=== PATIENT | female | born 1935 | race Caucasian/White ===

== ENCOUNTER 2022-09-07 23:03 | Inpatient (IN) | payer MEDICARE, BC ==
[2022-09-07] MEDS ORDERED: SODIUM CHLORIDE 0.9% 1,000 ML IV STA (23:49)
--- NOTE | 2022-09-08 00:38 | XR ---
EXAMINATION TYPE: XR chest 1V portable DATE OF EXAM: 09/08/2022 COMPARISON: NONE HISTORY: Altered mental status TECHNIQUE: Single view FINDINGS: There is moderately severe pulmonary edema. Edema more severe on the right side. Heart is e nlarged. Thoracic aorta is atheromatous. There is blunting of the costophrenic angles. IMPRESSION: Moderately severe pulmonary edema with cardiomegaly and pleural fluid that could relate t o combined congestive heart failure and RDS.
[2022-09-08 01:04] LABS: Albumin 3.1 g/dL (3.5-5.0); Calcium 8.1 mg/dL (8.4-10.2); Potassium 3.2 mmol/L (3.5-5.1); Total Bilirubin 0.5 mg/dL (0.2-1.3); Total Protein 6.3 g/dL (6.3-8.2)
[2022-09-08 01:21] LABS: Anisocytosis Slight; Hypochromasia Marked; MCH 33.4 pg (25.0-35.0); MCHC 32.8 g/dL (31.0-37.0); MCV 101.9 fL (80.0-100.0); Macrocytosis Moderate; Mean Platelet Volume 9.9; Platelet Count 134 k/uL (150-450); Poikilocytosis Moderate; RBC 1.96 m/uL (3.80-5.40); RDW 18.1 % (11.5-15.5)
[2022-09-08 01:33] LABS: HGB 6.5 gm/dL (11.4-16.0)
[2022-09-08 02:13] LABS: Anisocytosis (M) Present; Band Neutrophils % 1 %; Basophils # (M) 0.04 k/uL (0-0.2); Lymphocytes # (M) 0.14 k/uL (1.0-4.8); Monocytes # (M) 0.14 k/uL (0-1.0); Neutrophils % (M) 91 %; Nucleated Red Blood Cells 6 /100 WBC (0-0); Poikilocytosis (M) Present; Polychromasia Present; Total Cells Counted 200; WBC 3.6 k/uL (3.8-10.6)
[2022-09-08 02:18] LABS: ABG Base Excess -2.2 mmol/L; ABG HCO3 21 mmol/L (21-25); ABG PCO2 29 mmHg (35-45); ABG PH 7.48 (7.35-7.45); ABG PO2 185 mmHg (83-108); ABG TCO2 22 mmol/L (19-24); Allen Test Performed? Yes
[2022-09-08 02:23] LABS: Appearance,Urine Cloudy (Clear); Bacteria,Urine Few /hpf; Bilirubin,Urine Negative (Negative); Blood,Urine Small (Negative); Color,Urine Yellow; Glucose,Urine (UA) Negative (Negative); Hyaline Casts,Urine 3 /lpf (0-2); Ketones,Urine Negative (Negative); Leukocyte Esterase,Urine Large (Negative); Mucus,Urine Rare /hpf; Nitrite,Urine Negative (Negative); Protein,Urine Trace (Negative); RBC,Urine 5 /hpf (0-5); Specific Gravity,Urine 1.012 (1.001-1.035); Squamous Epithelial Cell,Urine 1 /hpf (0-4); Urobilinogen,Urine <2.0 mg/dL (<2.0); WBC,Urine 26 /hpf (0-5)
[2022-09-08] MEDS ORDERED: AZITHROMYCIN 500 MG in SODIUM CHLORIDE 0.9% 250 ML IVPB STA (02:26)
[2022-09-08] MEDS ORDERED: PNEUMONIA PROTOCOL UTILIZED 1 EACH MISC PO PRN (02:26)
[2022-09-08 02:36] LABS: INR 1.1 (<1.2); Partial Thromboplastin Time 21.2 sec (22.0-30.0); Prothrombin Time 11.5 sec (9.0-12.0)
[2022-09-08] MEDS ORDERED: FUROSEMIDE 10 MG/ML 4 ML VIAL IV STA (03:04)
[2022-09-08] MEDS ORDERED: NALOXONE 0.4 MG/ML 1 ML VIAL IV PRN (03:08)
--- NOTE | 2022-09-08 03:08 | ED ---
SOB HPI - General Chief Complaint: Shortness of Breath Stated Complaint: Poss pneumonia Time Seen by Provider: 09/07/22 23:50 Source: EMS Mode of arrival: EMS Limitations: altered mental status - History of Present Illness Initial Comments: 87-year-old female with past medical history of metastatic breast cancer presents to the emergency department via EMS. Son is at bedside and provides a history. He reports that the patient has had low oxygen levels at home for the past 3 days. Reports that they were at the lowest today in the 60s. The patient has had altered mental status for this duration as well and reports that she has been staring off to the side. She has had a cough. He is concerned for aspiration pneumonia as he states that she chokes on all the food that she eats. She continues to take food by mouth. Patient does have a history of breast cancer and follows with . Recently started treatment today for the breast cancer. He denies any falls. No reported fevers. No vomiting. Due to the decreased responsiveness the patient has not had any complaints. - Related Data Home Medications Medication Instructions Recorded Confirmed Acetaminophen Tab [Tylenol] 650 mg PO Q4H PRN 09/08/22 09/08/22 Albuterol Sulfate [Proventil Hfa] 2 puff INHALATION RT-Q4H PRN 09/08/22 09/08/22 Anastrozole [Arimidex] 1 mg PO DAILY 09/08/22 09/08/22 Docusate [Colace] 100 mg PO DAILY PRN 09/08/22 09/08/22 Famotidine [Pepcid] 20 mg PO BID PRN 09/08/22 09/08/22 Folic Acid 1 mg PO DAILY 09/08/22 09/08/22 Furosemide [Lasix] 40 mg PO BID 09/08/22 09/08/22 L.acidoph,Paracasei, B.lactis 1 cap PO DAILY 09/08/22 09/08/22 [Probiotic] Latanoprost [Latanoprost 0.005%] 1 drop BOTH EYES HS 09/08/22 09/08/22 Loratadine [Claritin] 10 mg PO DAILY 09/08/22 09/08/22 Metoprolol Tartrate [Lopressor] 25 mg PO BID 09/08/22 09/08/22 Palbociclib [Ibrance] 125 mg PO DIRECTED 09/08/22 09/08/22 Potassium Chloride 20 meq PO DAILY 09/08/22 09/08/22 Sennosides [Senokot] 8.6 mg PO DAILY PRN 09/08/22 09/08/22 amLODIPine [Norvasc] 5 mg PO DAILY 09/08/22 09/08/22 diphenhydrAMINE HCL [Benadryl] 25 mg PO DAILY PRN 09/08/22 09/08/22 Allergies Allergy/AdvReac Type Severity Reaction Status Date / Time codeine Allergy Swelling Verified 09/08/22 08:50 Sulfa (Sulfonamide Allergy Swelling Verified 09/08/22 08:50 Antibiotics) Review of Systems ROS Statement: Those systems with pertinent positive or pertinent negative responses have been documented in the HPI. ROS Other: All systems not noted in ROS Statement are negative. Past Medical History - Past Family History Mother Family Medical History: Cancer General Exam Limitations: altered mental status General appearance: lethargic Head exam: Present: atraumatic, normocephalic, normal inspection ENT exam: Present: mucous membranes dry Neck exam: Present: normal inspection. Absent: tenderness, meningismus, lymphadenopathy Respiratory exam: Present: decreased breath sounds, other (coarse breath sounds bilaterally) Cardiovascular Exam: Present: regular rate, normal rhythm, normal heart sounds. Absent: systolic murmur, diastolic murmur, rubs, gallop, clicks GI/Abdominal exam: Present: soft, normal bowel sounds. Absent: distended, tenderness, guarding, rebound, rigid Neurological exam: Present: other (patient will respond yes/no to questions however appears mostly disconnected from her environment) Psychiatric exam: Present: flat affect Course Vital Signs 09/07/22 09/08/22 09/08/22 23:46 00:53 03:41 Temperature 97.8 F Pulse Rate 80 74 78 Respiratory 19 19 18 Rate Blood Pressure 115/68 119/74 122/72 O2 Sat by Pulse 100 99 100 Oximetry 09/08/22 09/08/22 09/08/22 05:31 05:51 06:26 Temperature 98.1 F 98.2 F Pulse Rate 72 68 80 Respiratory 18 18 15 Rate Blood Pressure 114/76 104/75 106/69 O2 Sat by Pulse 100 100 100 Oximetry 09/08/22 09/08/22 09/08/22 07:39 07:59 08:37 Temperature 97.6 F Pulse Rate 80 87 Respiratory 20 16 18 Rate Blood Pressure 124/77 O2 Sat by Pulse 100 98 Oximetry 09/08/22 09/08/22 09/08/22 10:01 10:12 12:03 Temperature 97.8 F Pulse Rate 72 87 66 Respiratory 18 16 16 Rate Blood Pressure 125/76 127/75 129/65 O2 Sat by Pulse 100 100 Oximetry 09/08/22 09/08/22 09/08/22 13:00 14:19 15:00 Temperature Pulse Rate 68 96 92 Respiratory 18 18 16 Rate Blood Pressure 120/71 139/78 135/78 O2 Sat by Pulse 99 100 Oximetry 09/08/22 16:52 Temperature 97.7 F Pulse Rate 92 Respiratory 18 Rate Blood Pressure 130/93 O2 Sat by Pulse 100 Oximetry Procedures - [facility] Protocol (Time Out) Nurse: Avinash Tim Medical Decision Making - Medical Decision Making On arrival patient was placed into room 16. Thorough history and physical exam is performed. Patient is staring off however will respond to tactile stimuli. 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 No new lateralizing symptoms. Last known well was 3 days ago. Patient is placed on a nonrebreather due to her hypoxia. Due to critical appearing status CODE STATUS is addressed. Son states the patient is a DO NOT RESUSCITATE however does agree to intubation. Patient is saturating 100% on a nonrebreather. Laboratory studies are conducted and demonstrate a hemoglobin of 6.5. Troponin is 0.723. BNP is 45,200. Patient was originally started on 100 mL of fluid per hour as the patient is not been eating or drinking with concern for sepsis. Chest x-ray demonstrates pulmonary edema and therefore fluids are stopped. Patient is transfused a unit of blood and 40 mg of Lasix as ordered. I did order antibiotics. Field catheter is placed. Spoke with the patient's son in regards to how sick the patient is. Patient will be admitted to [facility]. Spoke with Dr. Marcelo who agreed to admit the patinet. - Lab Data Result diagrams: 09/12/22 08:44 09/12/22 08:44 Lab Results 09/08/22 09/08/22 09/08/22 Range/Units 00:34 00:34 00:34 WBC 3.6 L (3.8-10.6) k/uL RBC 1.96 L (3.80-5.40) m/uL Hgb 6.5 L* (11.4-16.0) gm/dL Hct 20.0 L (34.0-46.0) % MCV 101.9 H (80.0-100.0) fL MCH 33.4 (25.0-35.0) pg MCHC 32.8 (31.0-37.0) g/dL RDW 18.1 H (11.5-15.5) % Plt Count 134 L (150-450) k/uL MPV 9.9 Neutrophils % (Manual) 91 % Band Neuts % (Manual) 1 % Lymphocytes % (Manual) 4 % Monocytes % (Manual) 4 % Basophils % (Manual) 1 % Neutrophils # (Manual) 3.30 (1.3-7.7) k/uL Lymphocytes # (Manual) 0.14 L (1.0-4.8) k/uL Monocytes # (Manual) 0.14 (0-1.0) k/uL Basophils # (Manual) 0.04 (0-0.2) k/uL Nucleated RBCs 6 H (0-0) /100 WBC Manual Slide Review Performed Polychromasia Present Hypochromasia Marked Poikilocytosis Moderate Poikilocytosis (manual Present Anisocytosis Slight Anisocytosis (manual) Present Macrocytosis Moderate PT (9.0-12.0) sec INR (<1.2) APTT (22.0-30.0) sec D-Dimer (<0.60) mg/L FEU Sample Site ABG pH (7.35-7.45) ABG pCO2 (35-45) mmHg ABG pO2 (83-108) mmHg ABG HCO3 (21-25) mmol/L ABG Total CO2 (19-24) mmol/L ABG O2 Saturation (94-97) % ABG Base Excess mmol/L [place]by Test FiO2 % Sodium 143 (137-145) mmol/L Potassium 3.2 L (3.5-5.1) mmol/L Chloride 106 (98-107) mmol/L Carbon Dioxide 19 L (22-30) mmol/L Anion Gap 18 mmol/L BUN 79 H (7-17) mg/dL Creatinine 3.12 H (0.52-1.04) mg/dL Est GFR (CKD-EPI)AfAm 15 (>60 ml/min/1.73 sqM) Est GFR (CKD-EPI)NonAf 13 (>60 ml/min/1.73 sqM) Glucose 148 H (74-99) mg/dL Calcium 8.1 L (8.4-10.2) mg/dL Total Bilirubin 0.5 (0.2-1.3) mg/dL AST 41 H (14-36) U/L ALT 25 (4-34) U/L Alkaline Phosphatase 97 (38-126) U/L Troponin I 0.723 H* (0.000-0.034) ng/mL NT-Pro-B Natriuret Pep pg/mL Total Protein 6.3 (6.3-8.2) g/dL Albumin 3.1 L (3.5-5.0) g/dL Urine Color Urine Appearance (Clear) Urine pH (5.0-8.0) Ur Specific [place] (1.001-1.035) Urine Protein (Negative) Urine Glucose (UA) (Negative) Urine Ketones (Negative) Urine Blood (Negative) Urine Nitrite (Negative) Urine Bilirubin (Negative) Urine Urobilinogen (<2.0) mg/dL Ur Leukocyte Esterase (Negative) Urine RBC (0-5) /hpf Urine WBC (0-5) /hpf Urine WBC Clumps (None) /hpf Ur Squamous Epith Cells (0-4) /hpf Urine Bacteria (None) /hpf Hyaline Casts (0-2) /lpf Urine Mucus (None) /hpf Coronavirus (PCR) (Not Detectd) Influenza Type A RNA (Not Detectd) Influenza Type B (PCR) (Not Detectd) Blood Type Blood Type Confirm Blood Type Recheck Bld Type Recheck Status Antibody Screen Crossmatch Spec Expiration Date 09/08/22 09/08/22 09/08/22 Range/Units 00:34 00:34 01:35 WBC (3.8-10.6) k/uL RBC (3.80-5.40) m/uL Hgb (11.4-16.0) gm/dL Hct (34.0-46.0) % MCV (80.0-100.0) fL MCH (25.0-35.0) pg MCHC (31.0-37.0) g/dL RDW (11.5-15.5) % Plt Count (150-450) k/uL MPV Neutrophils % (Manual) % Band Neuts % (Manual) % Lymphocytes % (Manual) % Monocytes % (Manual) % Basophils % (Manual) % Neutrophils # (Manual) (1.3-7.7) k/uL Lymphocytes # (Manual) (1.0-4.8) k/uL Monocytes # (Manual) (0-1.0) k/uL Basophils # (Manual) (0-0.2) k/uL Nucleated RBCs (0-0) /100 WBC Manual Slide Review Polychromasia Hypochromasia Poikilocytosis Poikilocytosis (manual Anisocytosis Anisocytosis (manual) Macrocytosis PT (9.0-12.0) sec INR (<1.2) APTT (22.0-30.0) sec D-Dimer (<0.60) mg/L FEU Sample Site ABG pH (7.35-7.45) ABG pCO2 (35-45) mmHg ABG pO2 (83-108) mmHg ABG HCO3 (21-25) mmol/L ABG Total CO2 (19-24) mmol/L ABG O2 Saturation (94-97) % ABG Base Excess mmol/L [place] Test FiO2 % Sodium (137-145) mmol/L Potassium (3.5-5.1) mmol/L Chloride (98-107) mmol/L Carbon Dioxide (22-30) mmol/L Anion Gap mmol/L BUN (7-17) mg/dL Creatinine (0.52-1.04) mg/dL Est GFR (CKD-EPI)AfAm (>60 ml/min/1.73 sqM) Est GFR (CKD-EPI)NonAf (>60 ml/min/1.73 sqM) Glucose (74-99) mg/dL Calcium (8.4-10.2) mg/dL Total Bilirubin (0.2-1.3) mg/dL AST (14-36) U/L ALT (4-34) U/L Alkaline Phosphatase (38-126) U/L Troponin I (0.000-0.034) ng/mL NT-Pro-B Natriuret Pep 07302 pg/mL Total Protein (6.3-8.2) g/dL Albumin (3.5-5.0) g/dL Urine Color Urine Appearance (Clear) Urine pH (5.0-8.0) Ur Specific [place] (1.001-1.035) Urine Protein (Negative) Urine Glucose (UA) (Negative) Urine Ketones (Negative) Urine Blood (Negative) Urine Nitrite (Negative) Urine Bilirubin (Negative) Urine Urobilinogen (<2.0) mg/dL Ur Leukocyte Esterase (Negative) Urine RBC (0-5) /hpf Urine WBC (0-5) /hpf Urine WBC Clumps (None) /hpf Ur Squamous Epith Cells (0-4) /hpf Urine Bacteria (None) /hpf Hyaline Casts (0-2) /lpf Urine Mucus (None) /hpf Coronavirus (PCR) Not Detected (Not Detectd) Influenza Type A RNA (Not Detectd) Influenza Type B (PCR) (Not Detectd) Blood Type Blood Type Confirm A Positive Blood Type Recheck Bld Type Recheck Status Antibody Screen Crossmatch Spec Expiration Date 09/08/22 09/08/22 09/08/22 Range/Units 01:41 01:52 01:52 WBC (3.8-10.6) k/uL RBC (3.80-5.40) m/uL Hgb (11.4-16.0) gm/dL Hct (34.0-46.0) % MCV (80.0-100.0) fL MCH (25.0-35.0) pg MCHC (31.0-37.0) g/dL RDW (11.5-15.5) % Plt Count (150-450) k/uL MPV Neutrophils % (Manual) % Band Neuts % (Manual) % Lymphocytes % (Manual) % Monocytes % (Manual) % Basophils % (Manual) % Neutrophils # (Manual) (1.3-7.7) k/uL Lymphocytes # (Manual) (1.0-4.8) k/uL Monocytes # (Manual) (0-1.0) k/uL Basophils # (Manual) (0-0.2) k/uL Nucleated RBCs (0-0) /100 WBC Manual Slide Review Polychromasia Hypochromasia Poikilocytosis Poikilocytosis (manual Anisocytosis Anisocytosis (manual) Macrocytosis PT 11.5 (9.0-12.0) sec INR 1.1 (<1.2) APTT 21.2 L (22.0-30.0) sec D-Dimer 18.20 H (<0.60) mg/L FEU Sample Site ABG pH (7.35-7.45) ABG pCO2 (35-45) mmHg ABG pO2 (83-108) mmHg ABG HCO3 (21-25) mmol/L ABG Total CO2 (19-24) mmol/L ABG O2 Saturation (94-97) % ABG Base Excess mmol/L [place]by Test FiO2 % Sodium (137-145) mmol/L Potassium (3.5-5.1) mmol/L Chloride (98-107) mmol/L Carbon Dioxide (22-30) mmol/L Anion Gap mmol/L BUN (7-17) mg/dL Creatinine (0.52-1.04) mg/dL Est GFR (CKD-EPI)AfAm (>60 ml/min/1.73 sqM) Est GFR (CKD-EPI)NonAf (>60 ml/min/1.73 sqM) Glucose (74-99) mg/dL Calcium (8.4-10.2) mg/dL Total Bilirubin (0.2-1.3) mg/dL AST (14-36) U/L ALT (4-34) U/L Alkaline Phosphatase (38-126) U/L Troponin I (0.000-0.034) ng/mL NT-Pro-B Natriuret Pep pg/mL Total Protein (6.3-8.2) g/dL Albumin (3.5-5.0) g/dL Urine Color Urine Appearance (Clear) Urine pH (5.0-8.0) Ur Specific [place] (1.001-1.035) Urine Protein (Negative) Urine Glucose (UA) (Negative) Urine Ketones (Negative) Urine Blood (Negative) Urine Nitrite (Negative) Urine Bilirubin (Negative) Urine Urobilinogen (<2.0) mg/dL Ur Leukocyte Esterase (Negative) Urine RBC (0-5) /hpf Urine WBC (0-5) /hpf Urine WBC Clumps (None) /hpf Ur Squamous Epith Cells (0-4) /hpf Urine Bacteria (None) /hpf Hyaline Casts (0-2) /lpf Urine Mucus (None) /hpf Coronavirus (PCR) (Not Detectd) Influenza Type A RNA Not Detected (Not Detectd) Influenza Type B (PCR) Not Detected (Not Detectd) Blood Type A Positive Blood Type Confirm Blood Type Recheck No Previous Record Bld Type Recheck Status CABO Indicated Antibody Screen NEGATIVE Crossmatch See Detail Spec Expiration Date 09/11/2022 - 235109/08/22 09/08/22 Range/Units 02:09 02:16 WBC (3.8-10.6) k/uL RBC (3.80-5.40) m/uL Hgb (11.4-16.0) gm/dL Hct (34.0-46.0) % MCV (80.0-100.0) fL MCH (25.0-35.0) pg MCHC (31.0-37.0) g/dL RDW (11.5-15.5) % Plt Count (150-450) k/uL MPV Neutrophils % (Manual) % Band Neuts % (Manual) % Lymphocytes % (Manual) % Monocytes % (Manual) % Basophils % (Manual) % Neutrophils # (Manual) (1.3-7.7) k/uL Lymphocytes # (Manual) (1.0-4.8) k/uL Monocytes # (Manual) (0-1.0) k/uL Basophils # (Manual) (0-0.2) k/uL Nucleated RBCs (0-0) /100 WBC Manual Slide Review Polychromasia Hypochromasia Poikilocytosis Poikilocytosis (manual Anisocytosis Anisocytosis (manual) Macrocytosis PT (9.0-12.0) sec INR (<1.2) APTT (22.0-30.0) sec D-Dimer (<0.60) mg/L FEU Sample Site R radial ABG pH 7.48 H (7.35-7.45) ABG pCO2 29 L (35-45) mmHg ABG pO2 185 H (83-108) mmHg ABG HCO3 21 (21-25) mmol/L ABG Total CO2 22 (19-24) mmol/L ABG O2 Saturation 100.0 H (94-97) % ABG Base Excess -2.2 mmol/L [place]by Test Yes FiO2 100 % Sodium (137-145) mmol/L Potassium (3.5-5.1) mmol/L Chloride (98-107) mmol/L Carbon Dioxide (22-30) mmol/L Anion Gap mmol/L BUN (7-17) mg/dL Creatinine (0.52-1.04) mg/dL Est GFR (CKD-EPI)AfAm (>60 ml/min/1.73 sqM) Est GFR (CKD-EPI)NonAf (>60 ml/min/1.73 sqM) Glucose (74-99) mg/dL Calcium (8.4-10.2) mg/dL Total Bilirubin (0.2-1.3) mg/dL AST (14-36) U/L ALT (4-34) U/L Alkaline Phosphatase (38-126) U/L Troponin I (0.000-0.034) ng/mL NT-Pro-B Natriuret Pep pg/mL Total Protein (6.3-8.2) g/dL Albumin (3.5-5.0) g/dL Urine Color Yellow Urine Appearance Cloudy H (Clear) Urine pH 5.0 (5.0-8.0) Ur Specific [place] 1.012 (1.001-1.035) Urine Protein Trace H (Negative) Urine Glucose (UA) Negative (Negative) Urine Ketones Negative (Negative) Urine Blood Small H (Negative) Urine Nitrite Negative (Negative) Urine Bilirubin Negative (Negative) Urine Urobilinogen <2.0 (<2.0) mg/dL Ur Leukocyte Esterase Large H (Negative) Urine RBC 5 (0-5) /hpf Urine WBC 26 H (0-5) /hpf Urine WBC Clumps Few H (None) /hpf Ur Squamous Epith Cells 1 (0-4) /hpf Urine Bacteria Few H (None) /hpf Hyaline Casts 3 H (0-2) /lpf Urine Mucus Rare H (None) /hpf Coronavirus (PCR) (Not Detectd) Influenza Type A RNA (Not Detectd) Influenza Type B (PCR) (Not Detectd) Blood Type Blood Type Confirm Blood Type Recheck Bld Type Recheck Status Antibody Screen Crossmatch Spec Expiration Date - EKG Data EKG Comments: EKG demonstrates sinus rhythm with a rate of 67. QRS 170. QTC of 528. Significant baseline artifact. There is a left bundle however sgarbossa not able to assess Disposition Clinical Impression: Pulmonary edema, IRWIN (acute kidney injury), CKD (chronic kidney disease), Hypoxia, Anemia, Pancytopenia, Hypokalemia, NSTEMI (non-ST elevated myocardial infarction) Disposition: ADMITTED IP TO THIS HOSP Condition: Critical Is patient prescribed a controlled substance at d/c from ED?: No Time of Disposition: 03:07 Decision to Admit Reason: Admit from EC Decision Date: 09/08/22 Decision Time: 03:07
[2022-09-08] MEDS ORDERED: POTASSIUM CHLORIDE 20 MEQ in WATER FOR INJECTION 1 100ML.BAG IVPB STA ×2 (03:22→18:16)
--- NOTE | 2022-09-08 04:39 | P.HPIM ---
History of Present Illness H&P Date: 09/08/22 The patient is an 87-year-old female with a PMH of stage IV breast cancer, CVA with residual left-sided weakness, dementia, hypertension, and hyperlipidemia who was brought into the emergency room by her son due to shortness of breath and worsening mental status. The history was obtained from the son at the bedside due to patient's altered mentation. Son reports that over the past 2 da ys, the patient's been increasingly unresponsive and appeared to have difficulty breathing. She is currently undergoing chemotherapy and was scheduled to start a new regimen earlier today. The patient is reportedly bedbound and has had a gradual decline in her functional capacity over the past several years after suffering from a large CVA in 2012. Upon arrival of EMS staff, the patient's SpO2 was noted to be 75% on room air. In the emergency room, chest x-ray revealed severe pulmonary edema with cardiomegaly and pleural fluid with RDS right greater than left. EKG reveals sinus rhythm with at 67 bpm with left axis deviation and left bundle branch block. Laboratory evaluation was remarkable for pancytopenia with hemoglobin 6.5 (previously 7.1 on 08/21), troponin 0.7-3, proBNP 45,200, potassium 3.2, BUN 79, creatinine 3.12 (previously 1.9 on 08/21), with UA consistent with UTI. Review of systems: Unable to obtain due to mental status Physical examination: General: Chronically ill-appearing female, no distress, appears at stated age, normal weight Derm: no unusual rashes/lesions, warm Head: atraumatic, normocephalic, symmetric Eyes: EOMI, no lid lag, anicteric sclera, pupils equal round reactive to light ENT: Nose and ears atraumatic Neck: No cervical lymphadenopathy, trachea midline, supple Mouth: no lip lesion, mucus membranes dry Cardiovascular: S1S2 reg, no murmur, positive dorsalis pedis pulse bilateral, no edema Lungs: Diffuse rhonchi and rales, no accessory muscle use Abdominal: soft, nontender to palpation, no guarding Ext: Unable to assess strength as patient not following directions, no gross muscle atrophy, no contractures, Neuro: Patient spontaneously moving right upper extremity and lower extremity Psych: Makes eye contact upon tactile stimuli, not following any directions or answering any questions Assessment/plan Acute hypoxic respiratory failure, suspected secondary to newly diagnosed CHF exacerbation -Cardiac monitoring -Continue with Lasix -Cardiology consult -Cardiac monitoring -Monitor electrolytes -Intake/output and daily weights Acute kidney injury, suspect secondary to cardiorenal syndrome -Continue diuresis -Nephrology consulted Troponin elevation, suspect secondary to ongoing acute illness with CHF exacerbation -Cardiology consulted -Continue with aspirin -Cardiac monitoring Hypokalemia -Replace and monitor UTI -Continue with ceftriaxone -Follow-up cultures Pancytopenia, slightly worse than baseline -1 U pRBCs ordered due to severe anemia DVT prophylaxis -IPCDs The patient is admitted with an anticipated greater than 2 midnight stay for evaluation of hypoxic resp failure. CODE STATUS: No Code w/ instructions (elective intubations okay) Discussed with: Son Anticipated discharge date: 4-[address]: Home Past Medical History - Past Family History Mother Family Medical History: Cancer Medications and Allergies Allergies Allergy/AdvReac Type Severity Reaction Status Date / Time codeine Allergy Swelling Verified 09/07/22 23:45 Sulfa (Sulfonamide Allergy Swelling Verified 09/07/22 23:45 Antibiotics) Physical Exam Vitals: Vital Signs Temp Pulse Resp BP Pulse Ox 09/08/22 03:41 78 18 122/72 100 09/08/22 00:53 74 19 119/74 99 09/07/22 23:46 97.8 F 80 19 115/68 100 Intake and Output 09/07/22 09/07/22 09/08/22 14:59 22:59 06:59 Other: Weight 61.235 kg Results CBC & Chem 7: 09/08/22 00:34 09/08/22 00:34 Labs: Abnormal Lab Results - Last 24 Hours (Table) 09/08/22 09/08/22 09/08/22 Range/Units 00:34 00:34 00:34 WBC 3.6 L (3.8-10.6) k/uL RBC 1.96 L (3.80-5.40) m/uL Hgb 6.5 L* (11.4-16.0) gm/dL Hct 20.0 L (34.0-46.0) % MCV 101.9 H (80.0-100.0) fL RDW 18.1 H (11.5-15.5) % Plt Count 134 L (150-450) k/uL Lymphocytes # (Manual) 0.14 L (1.0-4.8) k/uL Nucleated RBCs 6 H (0-0) /100 WBC APTT (22.0-30.0) sec D-Dimer (<0.60) mg/L FEU ABG pH (7.35-7.45) ABG pCO2 (35-45) mmHg ABG pO2 (83-108) mmHg ABG O2 Saturation (94-97) % Potassium 3.2 L (3.5-5.1) mmol/L Carbon Dioxide 19 L (22-30) mmol/L BUN 79 H (7-17) mg/dL Creatinine 3.12 H (0.52-1.04) mg/dL Glucose 148 H (74-99) mg/dL Calcium 8.1 L (8.4-10.2) mg/dL AST 41 H (14-36) U/L Troponin I 0.723 H* (0.000-0.034) ng/mL Albumin 3.1 L (3.5-5.0) g/dL Urine Appearance (Clear) Urine Protein (Negative) Urine Blood (Negative) Ur Leukocyte Esterase (Negative) Urine WBC (0-5) /hpf Urine WBC Clumps (None) /hpf Urine Bacteria (None) /hpf Hyaline Casts (0-2) /lpf Urine Mucus (None) /hpf Crossmatch 09/08/22 09/08/22 09/08/22 Range/Units 01:52 01:52 02:09 WBC (3.8-10.6) k/uL RBC (3.80-5.40) m/uL Hgb (11.4-16.0) gm/dL Hct (34.0-46.0) % MCV (80.0-100.0) fL RDW (11.5-15.5) % Plt Count (150-450) k/uL Lymphocytes # (Manual) (1.0-4.8) k/uL Nucleated RBCs (0-0) /100 WBC APTT 21.2 L (22.0-30.0) sec D-Dimer 18.20 H (<0.60) mg/L FEU ABG pH (7.35-7.45) ABG pCO2 (35-45) mmHg ABG pO2 (83-108) mmHg ABG O2 Saturation (94-97) % Potassium (3.5-5.1) mmol/L Carbon Dioxide (22-30) mmol/L BUN (7-17) mg/dL Creatinine (0.52-1.04) mg/dL Glucose (74-99) mg/dL Calcium (8.4-10.2) mg/dL AST (14-36) U/L Troponin I (0.000-0.034) ng/mL Albumin (3.5-5.0) g/dL Urine Appearance Cloudy H (Clear) Urine Protein Trace H (Negative) Urine Blood Small H (Negative) Ur Leukocyte Esterase Large H (Negative) Urine WBC 26 H (0-5) /hpf Urine WBC Clumps Few H (None) /hpf Urine Bacteria Few H (None) /hpf Hyaline Casts 3 H (0-2) /lpf Urine Mucus Rare H (None) /hpf Crossmatch See Detail 09/08/22 Range/Units 02:16 WBC (3.8-10.6) k/uL RBC (3.80-5.40) m/uL Hgb (11.4-16.0) gm/dL Hct (34.0-46.0) % MCV (80.0-100.0) fL RDW (11.5-15.5) % Plt Count (150-450) k/uL Lymphocytes # (Manual) (1.0-4.8) k/uL Nucleated RBCs (0-0) /100 WBC APTT (22.0-30.0) sec D-Dimer (<0.60) mg/L FEU ABG pH 7.48 H (7.35-7.45) ABG pCO2 29 L (35-45) mmHg ABG pO2 185 H (83-108) mmHg ABG O2 Saturation 100.0 H (94-97) % Potassium (3.5-5.1) mmol/L Carbon Dioxide (22-30) mmol/L BUN (7-17) mg/dL Creatinine (0.52-1.04) mg/dL Glucose (74-99) mg/dL Calcium (8.4-10.2) mg/dL AST (14-36) U/L Troponin I (0.000-0.034) ng/mL Albumin (3.5-5.0) g/dL Urine Appearance (Clear) Urine Protein (Negative) Urine Blood (Negative) Ur Leukocyte Esterase (Negative) Urine WBC (0-5) /hpf Urine WBC Clumps (None) /hpf Urine Bacteria (None) /hpf Hyaline Casts (0-2) /lpf Urine Mucus (None) /hpf Crossmatch
[2022-09-08] MEDS: FUROSEMIDE 10 MG/ML 4 ML VIAL IV SCH ×2 (08:06→21:40)
--- NOTE | 2022-09-08 10:32 | P.CRDCN ---
History of Present Illness History of present illness: HISTORY OF PRESENTING ILLNESS This is a pleasant 87-year-old female past medical history significant for metastatic breast cancer, CVA, hypertension, dementia, dyslipidemia, no known history of cardiac disease. 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 We have been asked to see in consultation for congestive heart failure. Patient presents to the emergency department by her son due to worsening shortness of breath and altered mental status. Patient is seen in the ER, unable to respond to questions. She is on a non-rebreather. She appears short of breath. Unable to accurartely describe her symptoms. Her son is at bedside, states patient has had low oxygen levels for the past 3 days. Worsening altered mental status. Patient was started on IV Lasix and IV antibiotics in the ER. DIAGNOSTICS * EKG reveals artifact. Repeat EKG appeared to be sinus rhythm LBBB morphology * Telemetry tracings indicate sinus rhythm * Chest xray moderate severe pulmonary edema with cardiomegaly. * Laboratory reviewed, hemoglobin 6.5, WBCs 3.6, platelets 134, d-dimer 18.2, sodium 143, potassium 3.2, BUN 79, serum creatinine 0.12, proBNP 45,200, troponin 0.72, 0.82, influenza and covid-19 negative * Current home cardiac medications include potassium chloride, metoprolol titrate 25 mg twice a day, amlodipine 5 mg daily REVIEW OF SYSTEMS At the time of my exam: Unable to perform secondary to mental status PHYSICAL EXAMINATION Blood pressure 127/75, heart rate 87, afebrile, oxygen saturation 100% on 15 nonbreather CONSTITUTIONAL: No apparent distress. HEENT: Head is normocephalic. Pupils are equal, round. Sclerae anicteric. Mucous membranes of the mouth are moist. No JVD. No carotid bruit. CHEST EXAMINATION: Lungs are crackles to auscultation. Diaphragmatic breahthing present HEART EXAMINATION: Regular rate and rhythm. S1, S2 heard. No murmurs, gallops or rub. ABDOMEN: Soft, nontender. Positive bowel sounds. EXTREMITIES: 2+ peripheral pulses, no lower extremity edema and no calf tenderness. NEUROLOGIC EXAMINATION: Patient is awake, lethargic, unable to answer questions, not oriented ASSESSMENT Altered mental status Acute hypoxic respiratory failure Acute heart failure exacerbation, unknown EF, echo pending Pancytopenia Elevated d-dimer Hypokalemia Acute kidney injury Acute Anemia, hemoglobin 6.5. Elevated troponin, secondary to above Metastatic breast cancer History of CVA Hypertension Dementia Dyslipidemia PLAN Continue IV Lasix Nephrology and Pulmonary consulted Optimize respiratory status as able Obtain 2D echocardiogram and doppler study to assess cardiac structure and function. Patient is a DNR Prognosis is guarded Further recommendations based on clinical course Nurse practitioner note has been reviewed by physician. Signing provider agrees with the documented findings, assessment, and plan of care. Past Medical History - Past Family History Mother Family Medical History: Cancer Medications and Allergies Home Medications Medication Instructions Recorded Confirmed Type Acetaminophen Tab [Tylenol] 650 mg PO Q4H PRN 09/08/22 09/08/22 History Albuterol Sulfate [Proventil Hfa] 2 puff INHALATION RT-Q4H PRN 09/08/22 09/08/22 History Anastrozole [Arimidex] 1 mg PO DAILY 09/08/22 09/08/22 History Docusate [Colace] 100 mg PO DAILY PRN 09/08/22 09/08/22 History Famotidine [Pepcid] 20 mg PO BID PRN 09/08/22 09/08/22 History Folic Acid 1 mg PO DAILY 09/08/22 09/08/22 History Furosemide [Lasix] 40 mg PO BID 09/08/22 09/08/22 History L.acidoph,Paracasei, B.lactis 1 cap PO DAILY 09/08/22 09/08/22 History [Probiotic] Latanoprost [Latanoprost 0.005%] 1 drop BOTH EYES HS 09/08/22 09/08/22 History Loratadine [Claritin] 10 mg PO DAILY 09/08/22 09/08/22 History Metoprolol Tartrate [Lopressor] 25 mg PO BID 09/08/22 09/08/22 History Palbociclib [Ibrance] 125 mg PO DIRECTED 09/08/22 09/08/22 History Potassium Chloride 20 meq PO DAILY 09/08/22 09/08/22 History Sennosides [Senokot] 8.6 mg PO DAILY PRN 09/08/22 09/08/22 History amLODIPine [Norvasc] 5 mg PO DAILY 09/08/22 09/08/22 History diphenhydrAMINE HCL [Benadryl] 25 mg PO DAILY PRN 09/08/22 09/08/22 History Allergies Allergy/AdvReac Type Severity Reaction Status Date / Time codeine Allergy Swelling Verified 09/08/22 08:50 Sulfa (Sulfonamide Allergy Swelling Verified 09/08/22 08:50 Antibiotics) Physical Exam Vitals: Vital Signs Temp Pulse Resp BP Pulse Ox 09/08/22 06:26 80 15 106/69 100 09/08/22 05:51 98.2 F 68 18 104/75 100 09/08/22 05:31 98.1 F 72 18 114/76 100 09/08/22 03:41 78 18 122/72 100 09/08/22 00:53 74 19 119/74 99 09/07/22 23:46 97.8 F 80 19 115/68 100 Intake and Output 09/07/22 09/08/22 09/08/22 22:59 06:59 14:59 Intake Total 0 310 Balance 0 310 Intake: Blood Product 0 310 Rc As-1 Unit 0 310 [id number] Other: Weight 61.235 kg Results 09/08/22 00:34 09/08/22 00:34 Cardiac Enzymes 09/08/22 09/08/22 09/08/22 Range/Units 00:34 00:34 05:54 AST 41 H (14-36) U/L Troponin I 0.723 H* 0.825 H* (0.000-0.034) ng/mL Coagulation 09/08/22 Range/Units 01:52 PT 11.5 (9.0-12.0) sec APTT 21.2 L (22.0-30.0) sec CBC 09/08/22 Range/Units 00:34 WBC 3.6 L (3.8-10.6) k/uL RBC 1.96 L (3.80-5.40) m/uL Hgb 6.5 L* (11.4-16.0) gm/dL Hct 20.0 L (34.0-46.0) % Plt Count 134 L (150-450) k/uL Comprehensive Metabolic Panel 09/08/22 Range/Units 00:34 Sodium 143 (137-145) mmol/L Potassium 3.2 L (3.5-5.1) mmol/L Chloride 106 (98-107) mmol/L Carbon Dioxide 19 L (22-30) mmol/L BUN 79 H (7-17) mg/dL Creatinine 3.12 H (0.52-1.04) mg/dL Glucose 148 H (74-99) mg/dL Calcium 8.1 L (8.4-10.2) mg/dL AST 41 H (14-36) U/L ALT 25 (4-34) U/L Alkaline Phosphatase 97 (38-126) U/L Total Protein 6.3 (6.3-8.2) g/dL Albumin 3.1 L (3.5-5.0) g/dL Current Medications Generic Name Dose Route Start Last Admin Trade Name Freq PRN Reason Stop Dose Admin Furosemide 40 mg 09/08/22 09:00 Furosemide 10 Mg/Ml 4 Ml Vial IV Q12HR [facility] Ceftriaxone Sodium 2 gm/ 50 mls @ 100 mls/hr 09/08/22 09:00 Sodium Chloride IVPB 09/12/22 09:29 Q24HR [facility] Protocol Miscellaneous Information 1 each 09/08/22 02:26 Pneumonia Protocol Utilized 1 Each Misc PO ONCE PRN Per Protocol Naloxone HCl 0.2 mg 09/08/22 03:08 Naloxone 0.4 Mg/Ml 1 Ml Vial IV Q2M PRN Opioid Reversal Intake and Output 09/07/22 09/08/22 09/08/22 22:59 06:59 14:59 Intake Total 0 310 Balance 0 310 Intake: Blood Product 0 310 Rc As-1 Unit 0 310 [id number] Other: Weight 61.235 kg 09/08/22 00:34 09/08/22 00:34
[2022-09-08 10:51] LABS: Calcium 7.4 mg/dL (8.4-10.2); Potassium 3.3 mmol/L (3.5-5.1)
--- NOTE | 2022-09-08 10:57 | P.NPCON ---
History of Present Illness - Reason for Consult acute renal failure, chronic renal failure - History of Present Illness Reason for consultation: Acute kidney injury on chronic kidney disease History of present illness: Patient is a 87-year-old female seen in renal consultation for acute kidney injury on chronic kidney disease. Patient was seen and examined in the emergency room. Patient has chronic kidney disease stage IV baseline creatinine in the range of 1.7-2 secondary to nephrosclerosis. Creatinine on admission was 3.12. Patient is not a reliable historian and is currently on nonrebreather. Son is present at bedside. Blood pressure is stable. No fever. According to the son patient has been short of breath and also has noticed changed in mental status. Patient has been progressively weaker and has not been eating and drinking much for the last 1-2 weeks. He also states that he give her ibuprofen for 5 days ago. She also vomited last week but not in the last couple of days. Patient does have history of breast cancer and was started back on Ibrance yesterday. Hemoglobin was 6.5 at admission and she did receive a unit of blood last night. No active bleeding per son. States patient used to be a diabetic but has not now. Denies any history of coronary artery disease. Chest x-ray suggestive of fluid overload and is currently maintained on IV Lasix. Vital signs are stable. General: Resting in bed. HEENT: On nonrebreather. LUNGS: Breath sounds decreased. HEART: Rate and Rhythm are regular. ABDOMEN: Soft, no distention. EXTREMITITES: No edema. Past Medical History - Past Family History Mother Family Medical History: Cancer Medications and Allergies Home Medications Medication Instructions Recorded Confirmed Type Acetaminophen Tab [Tylenol] 650 mg PO Q4H PRN 09/08/22 09/08/22 History Albuterol Sulfate [Proventil Hfa] 2 puff INHALATION RT-Q4H PRN 09/08/22 09/08/22 History Anastrozole [Arimidex] 1 mg PO DAILY 09/08/22 09/08/22 History Docusate [Colace] 100 mg PO DAILY PRN 09/08/22 09/08/22 History Famotidine [Pepcid] 20 mg PO BID PRN 09/08/22 09/08/22 History Folic Acid 1 mg PO DAILY 09/08/22 09/08/22 History Furosemide [Lasix] 40 mg PO BID 09/08/22 09/08/22 History L.acidoph,Paracasei, B.lactis 1 cap PO DAILY 09/08/22 09/08/22 History [Probiotic] Latanoprost [Latanoprost 0.005%] 1 drop BOTH EYES HS 09/08/22 09/08/22 History Loratadine [Claritin] 10 mg PO DAILY 09/08/22 09/08/22 History Metoprolol Tartrate [Lopressor] 25 mg PO BID 09/08/22 09/08/22 History Palbociclib [Ibrance] 125 mg PO DIRECTED 09/08/22 09/08/22 History Potassium Chloride 20 meq PO DAILY 09/08/22 09/08/22 History Sennosides [Senokot] 8.6 mg PO DAILY PRN 09/08/22 09/08/22 History amLODIPine [Norvasc] 5 mg PO DAILY 09/08/22 09/08/22 History diphenhydrAMINE HCL [Benadryl] 25 mg PO DAILY PRN 09/08/22 09/08/22 History Allergies Allergy/AdvReac Type Severity Reaction Status Date / Time codeine Allergy Swelling Verified 09/08/22 08:50 Sulfa (Sulfonamide Allergy Swelling Verified 09/08/22 08:50 Antibiotics) Physical Exam Vitals: Vital Signs Temp Pulse Resp BP Pulse Ox 09/08/22 10:12 87 16 127/75 100 09/08/22 10:01 97.8 F 72 18 125/76 09/08/22 08:37 87 18 98 09/08/22 07:59 16 09/08/22 07:39 97.6 F 80 20 124/77 100 09/08/22 06:26 80 15 106/69 100 09/08/22 05:51 98.2 F 68 18 104/75 100 09/08/22 05:31 98.1 F 72 18 114/76 100 09/08/22 03:41 78 18 122/72 100 09/08/22 00:53 74 19 119/74 99 09/07/22 23:46 97.8 F 80 19 115/68 100 Intake and Output 09/07/22 09/08/22 09/08/22 22:59 06:59 14:59 Intake Total 0 310 Balance 0 310 Intake: Blood Product 0 310 Rc As-1 Unit 0 310 [id number] Other: Weight 61.235 kg Results - Lab Results Most recent lab results ABG pH 7.48 (7.35-7.45) H 09/08/22 02:16 ABG pCO2 29 mmHg (35-45) L 09/08/22 02:16 ABG pO2 185 mmHg (83-108) H 09/08/22 02:16 ABG HCO3 21 mmol/L (21-25) 09/08/22 02:16 ABG O2 Saturation 100.0 % (94-97) H 09/08/22 02:16 Calcium 8.1 mg/dL (8.4-10.2) L 09/08/22 00:34 09/08/22 00:34 09/08/22 00:34 Assessment and Plan Plan: Assessment: 1. Acute kidney injury secondary to ATN secondary to cardiorenal syndrome and anemia. Creatinine 3.1 2. admission. 2. Chronic kidney disease stage IV with baseline creatinine in the range of 1.72 secondary to nephrosclerosis. 3. Acute blood loss anemia status post blood transfusion. No active bleeding. Patient is noted to be pancytopenic possibly from underlying malignancy/chemo. 4. Metastatic breast cancer. Oncology consulted. 5. Acute hypoxic respiratory failure. 6. Volume overload. 7. Hypokalemia from diuresis and poor intake. 8. Respiratory alkalosis. Plan: Maintain IV Lasix. Follow-up echocardiogram. Check iron studies. Follow-up cultures. Check urinalysis. Check renal ultrasound. Check bladder scan to make sure no urinary retention. Avoid nephrotoxins. Thank you for the consultation. I will continue to follow the patient with you during her hospital stay.
--- NOTE | 2022-09-08 12:08 | P.CNPUL ---
History of Present Illness Consult date: 09/08/22 Requesting physician: Yannick Marcelo Reason for consult: dyspnea, hypoxemia, pneumonia, abnormal CXR/CT Chief complaint: Hypoxemic respiratory failure. History of present illness: Pulmonary consult dated 09/08/2022. 87-year-old female seen in the emergency room. She was apparently brought in by EMS, on September 07, at 2300 hrs. We saw her in room 16. Her son was at the bedside. The patient has a history of metastatic breast cancer. All the history is obtained from the son, and from the emergency room documentation. The patient apparently has not been doing well at home for the last 3 days, with low saturations. Apparently the saturations were in the 60s. In addition, she developed mental status changes, and was very lethargic and somnolent. She was not coughing. The patient was choking while taking her medications, and eating a very small amount that she eats. The patient is currently taking Ibrance for her breast cancer. She is seen typically by a visiting physician. She has a history of metastatic breast cancer, as mentioned above. She's currently on a nonrebreather mask, and saline at 130 mL an hour. A blood gas showed a pO2 of 185, pCO2 29, and a pH is 7.48. The patient was on Rocephin, and we changed it to Zosyn. Her urine looks like it may be positive for a urinary tract infection. Her troponin was elevated. All this was told the son. White count 3.6, hemoglobin 6.5, hematocrit 20, and platelet count 234,000. D-dimer was 18.0. Sodium 145, potassium 3.3, chlorides 112, CO2 22, with an anion gap of 11, BUN 71, and creatinine 3.10. Glucose 130. Troponin is 0.723, 0.825, and 0.725. N-terminal proBNP was 45,200. Urine is positive for leukocyte esterase, WBCs, bacteria, and WBC clumps. Chest x-rays consistent with heart failure, although there may be a component of pneumonia as well. Review of Systems REVIEW OF SYSTEMS: The patient cannot provide any review of systems. All the history is obtained from the son who is at the bedside. She apparently has been having worsening respiratory distress, and mental status changes, with saturations in the 60s. CONSTITUTIONAL: [Negative.] NEUROLOGIC: [ Negative.] HEENT: [ Negative.] CARDIAC: [Negative.] PULMONARY: [Negative.] GI: [Negative.] : [Negative.] RHEUMATOLOGIC: [ Negative.] IMMUNOLOGIC: [ Negative.] ENDOCRINE: [Negative. ] DERMATOLOGIC: [Negative.] Past Medical History - Past Family History Mother Family Medical History: Cancer Medications and Allergies Home Medications Medication Instructions Recorded Confirmed Type Acetaminophen Tab [Tylenol] 650 mg PO Q4H PRN 09/08/22 09/08/22 History Albuterol Sulfate [Proventil Hfa] 2 puff INHALATION RT-Q4H PRN 09/08/22 09/08/22 History Anastrozole [Arimidex] 1 mg PO DAILY 09/08/22 09/08/22 History Docusate [Colace] 100 mg PO DAILY PRN 09/08/22 09/08/22 History Famotidine [Pepcid] 20 mg PO BID PRN 09/08/22 09/08/22 History Folic Acid 1 mg PO DAILY 09/08/22 09/08/22 History Furosemide [Lasix] 40 mg PO BID 09/08/22 09/08/22 History L.acidoph,Paracasei, B.lactis 1 cap PO DAILY 09/08/22 09/08/22 History [Probiotic] Latanoprost [Latanoprost 0.005%] 1 drop BOTH EYES HS 09/08/22 09/08/22 History Loratadine [Claritin] 10 mg PO DAILY 09/08/22 09/08/22 History Metoprolol Tartrate [Lopressor] 25 mg PO BID 09/08/22 09/08/22 History Palbociclib [Ibrance] 125 mg PO DIRECTED 09/08/22 09/08/22 History Potassium Chloride 20 meq PO DAILY 09/08/22 09/08/22 History Sennosides [Senokot] 8.6 mg PO DAILY PRN 09/08/22 09/08/22 History amLODIPine [Norvasc] 5 mg PO DAILY 09/08/22 09/08/22 History diphenhydrAMINE HCL [Benadryl] 25 mg PO DAILY PRN 09/08/22 09/08/22 History Allergies Allergy/AdvReac Type Severity Reaction Status Date / Time codeine Allergy Swelling Verified 09/08/22 08:50 Sulfa (Sulfonamide Allergy Swelling Verified 09/08/22 08:50 Antibiotics) Physical Exam Osteopathic Statement: *. No significant issues noted on an osteopathic structural exam other than those noted in the History and Physical/Consult. Vitals: Vital Signs Temp Pulse Resp BP Pulse Ox 09/08/22 10:12 87 16 127/75 100 09/08/22 10:01 97.8 F 72 18 125/76 09/08/22 08:37 87 18 98 09/08/22 07:59 16 09/08/22 07:39 97.6 F 80 20 124/77 100 09/08/22 06:26 80 15 106/69 100 09/08/22 05:51 98.2 F 68 18 104/75 100 09/08/22 05:31 98.1 F 72 18 114/76 100 09/08/22 03:41 78 18 122/72 100 09/08/22 00:53 74 19 119/74 99 09/07/22 23:46 97.8 F 80 19 115/68 100 Intake and Output 09/07/22 09/08/22 09/08/22 22:59 06:59 14:59 Intake Total 0 310 Balance 0 310 Intake: Blood Product 0 310 Rc As-1 Unit 0 310 [id number] Other: Weight 61.235 kg Tachypnea, somnolent/lethargic. The patient is on a nonrebreather mask. HEENT examination is grossly unremarkable. Neck supple. Full range of motion. No adenopathy thyromegaly or neck vein distention. Cardiovascular examination reveals regular rhythm rate. S1-S2 normal. No S3 or S4. No discernible murmur noted. Heart rate 100 bpm. Lungs reveal bilateral coarse rhonchi. Bilateral crackles are appreciated. No wheezes. Breath sounds equal bilaterally. She does not take a deep breath. Saturations are 98% on nonrebreather mask. Abdomen soft, without bowel sounds. Extremities are intact. No cyanosis clubbing or significant edema.. Skin reveals multiple areas of ecchymoses. Neurologic examination cannot be adequately assessed as the patient's very lethargic and somnolent. Results - Laboratory Findings CBC and BMP: 09/08/22 00:34 09/08/22 09:58 ABG ABG pH 7.48 (7.35-7.45) H 09/08/22 02:16 ABG pCO2 29 mmHg (35-45) L 09/08/22 02:16 ABG pO2 185 mmHg (83-108) H 09/08/22 02:16 ABG O2 Saturation 100.0 % (94-97) H 09/08/22 02:16 PT/INR, D-dimer PT 11.5 sec (9.0-12.0) 09/08/22 01:52 INR 1.1 (<1.2) 09/08/22 01:52 D-Dimer 18.20 mg/L FEU (<0.60) H 09/08/22 01:52 Abnormal lab findings: Abnormal Labs 09/08/22 09/08/22 09/08/22 00:34 00:34 00:34 WBC 3.6 L RBC 1.96 L Hgb 6.5 L* Hct 20.0 L MCV 101.9 H RDW 18.1 H Plt Count 134 L Lymphocytes # (Manual) 0.14 L Nucleated RBCs 6 H APTT D-Dimer ABG pH ABG pCO2 ABG pO2 ABG O2 Saturation Potassium 3.2 L Chloride Carbon Dioxide 19 L BUN 79 H Creatinine 3.12 H Glucose 148 H Calcium 8.1 L AST 41 H Troponin I 0.723 H* Albumin 3.1 L Procalcitonin Urine Appearance Urine Protein Urine Blood Ur Leukocyte Esterase Urine WBC Urine WBC Clumps Urine Bacteria Hyaline Casts Urine Mucus Crossmatch 09/08/22 09/08/22 09/08/22 01:52 01:52 02:09 WBC RBC Hgb Hct MCV RDW Plt Count Lymphocytes # (Manual) Nucleated RBCs APTT 21.2 L D-Dimer 18.20 H ABG pH ABG pCO2 ABG pO2 ABG O2 Saturation Potassium Chloride Carbon Dioxide BUN Creatinine Glucose Calcium AST Troponin I Albumin Procalcitonin Urine Appearance Cloudy H Urine Protein Trace H Urine Blood Small H Ur Leukocyte Esterase Large H Urine WBC 26 H Urine WBC Clumps Few H Urine Bacteria Few H Hyaline Casts 3 H Urine Mucus Rare H Crossmatch See Detail 09/08/22 09/08/22 09/08/22 02:16 05:54 07:52 WBC RBC Hgb Hct MCV RDW Plt Count Lymphocytes # (Manual) Nucleated RBCs APTT D-Dimer ABG pH 7.48 H ABG pCO2 29 L ABG pO2 185 H ABG O2 Saturation 100.0 H Potassium Chloride Carbon Dioxide BUN Creatinine Glucose Calcium AST Troponin I 0.825 H* Albumin Procalcitonin 0.47 H Urine Appearance Urine Protein Urine Blood Ur Leukocyte Esterase Urine WBC Urine WBC Clumps Urine Bacteria Hyaline Casts Urine Mucus Crossmatch 09/08/22 09/08/22 09:58 09:58 WBC RBC Hgb Hct MCV RDW Plt Count Lymphocytes # (Manual) Nucleated RBCs APTT D-Dimer ABG pH ABG pCO2 ABG pO2 ABG O2 Saturation Potassium 3.3 L Chloride 112 H Carbon Dioxide BUN 71 H Creatinine 3.10 H Glucose 130 H Calcium 7.4 L AST Troponin I 0.725 H* Albumin Procalcitonin Urine Appearance Urine Protein Urine Blood Ur Leukocyte Esterase Urine WBC Urine WBC Clumps Urine Bacteria Hyaline Casts Urine Mucus Crossmatch - Diagnostic Findings Chest x-ray: image reviewed Assessment and Plan Assessment: Acute hypoxemic respiratory failure, likely multifactorial, in part related to fluid overload/CHF, plus possible underlying pneumonia. History of metastatic breast cancer. Rule out non-ST segment elevation myocardial infarction. Acute kidney injury. Possible urinary tract infection. Pancytopenia. Multiple other medical problems and comorbidities. Plan: Plan dated 09/08/2022. The patient is seen in the emergency room. We spoke to the patient's son. We told the patient's son that we would do everything short of intubation and mechanical ventilation, to help his mother through this. I do not think that she will be able to recover from this illness overall condition is quite poor, with multiple organ insults. Additional recommendations and suggestions are forthcoming. Rocephin is discontinued in favor of Zosyn. Labs, x-rays, and medications are reviewed. Prognosis is very poor. Time with Patient: Greater than 30
--- NOTE | 2022-09-08 12:39 | US ---
EXAMINATION TYPE: US kidneys/renal and bladder DATE OF EXAM: 09/08/2022 COMPARISON: NONE CLINICAL HISTORY: yolie. EXAM MEASUREMENTS: Right Kidney: 10.2 x 5.7 x 4.7 cm Left Kidney: 9.2 x 4.9 x 4.3 cm Right Kidney: Limited visibility of borders. Hypoechoic area seen anteriorly appears to blend in with the surrounding parenchyma measurin.0 x 0.8 x 0.7 cm. Loss of cortical medullary differentiatio n. Left Kidney: Multiple anechoic areas seen. Largest seen measures 4.9 x 3.7 x 4.0 cm. Hyperechoic are a seen with shadowing which appears to be within the medial left kidney, limited evaluation. Measures 1.1 x 1.0 x 1.0 cm. Loss of cortical medullary differentiation. Bladder: Field catheter in place, unable to evaluate. Bilateral Jets seen: No *Incidental finding: Internal echoes seen within the gallbladder. Hyperechoic areas seen as well, lar gest appears to measure: 0.8 x 0.7 x 0.6 cm. IMPRESSION: 1. No hydronephrosis. 2. Nonobstructive left renal calculus. 3. Findings of bilateral medical renal disease. 4. Likely left renal subcentimeter cysts. 5. Cholelithiasis with suggested polyps. Follow-up gallbladder ultrasound in 6 months is recommended.
[2022-09-08 13:56] LABS: Appearance,Urine Cloudy (Clear); Bacteria,Urine Occasional /hpf; Bilirubin,Urine Negative (Negative); Blood,Urine Moderate (Negative); Budding Yeast,Urine Few /hpf; Color,Urine Yellow; Glucose,Urine (UA) Negative (Negative); Hyaline Casts,Urine 8 /lpf (0-2); Ketones,Urine Negative (Negative); Leukocyte Esterase,Urine Large (Negative); Mucus,Urine Rare /hpf; Nitrite,Urine Negative (Negative); Protein,Urine Trace (Negative); RBC,Urine 14 /hpf (0-5); Specific Gravity,Urine 1.012 (1.001-1.035); Squamous Epithelial Cell,Urine 1 /hpf (0-4); Urobilinogen,Urine <2.0 mg/dL (<2.0); WBC,Urine 23 /hpf (0-5)
--- NOTE | 2022-09-08 14:15 | CT ---
EXAMINATION TYPE: CT brain wo con CT DLP: 1201.9 mGycm, Automated exposure control for dose reduction was used. DATE OF EXAM: 09/08/2022 2:05 PM COMPARISON: None. CLINICAL INDICATION:Female, 87 years old with history of ams, TECHNIQUE: Brain: Multiple axial CT images of the brain were obtained without IV contrast. FINDINGS: Brain: Extra-axial spaces: No abnormal extra-axial fluid collections. Ventricular system: Dilatation in proportion to cerebral atrophy. Cerebral parenchyma: No acute intraparenchymal hemorrhage or mass effect. Hypoattenuating region with in the right occipital lobe. Region of encephalomalacia within the right frontal temporal junction. T he weinstein-white junction is well differentiated. Remote appearing bilateral vasoganglia lacunar injurie s. Confluent hypoattenuating areas are seen within the white matter. Cerebral volume loss. Cerebellum: Unremarkable. Mass effect: No evidence of midline shift. Intracranial vasculature: Atherosclerotic calcifications of the intracranial vessels. Soft tissues: Normal. Calvarium/osseous structures: No depressed skull fracture. Paranasal sinuses and mastoid air cells: Mild scattered paranasal sinus disease. Left mastoid effusio n. Visualized orbits: Bilateral aphakia IMPRESSION: 1. Hypoattenuating region within the right occipital lobe which may represent chronic white matter c hanges versus age-indeterminate infarct. Consider further evaluation with MRI brain. 2. Remote injuries to the right frontal temporal junction and bilateral basal ganglia. 3. Nonspecific white matter changes likely related to chronic small vessel ischemic disease.
--- NOTE | 2022-09-08 15:15 | P.CONS ---
History of Present Illness - Reason for Consult Consult date: 09/08/22 - History of Present Illness The patient is an 87-year-old white female with multiple medical problems, Well-known to myself. Her oncology history is as follows: She was initially seen in consult at [facility] on 01/19/18. She had presented with left breast pain and mass along with a mass in the left a rmpit which was also painful, in 12/02. Mammogram showed evidence of a breast mass confirmed on ultrasound, on 11/24/17. She had a that showed a retroareolar mass, 3.3 cm as well as a 5 mm mass at 3:00 about 2 cm from the nipple. She had an ultrasound-guided biopsy on 12/01/17 of the retroareolar mass, 3:00 mass as well as a left axillary lymph node. There are dominant mass, and the noted biopsy were positive for invasive ductal carcinoma, grade 1, ER/KY positive and H ER-22+ by IHC but negative by fish. The patient then had a PET scan done which was positive in the retroareolar mass, as well as in multiple left axillary lymph nodes. Left intramammary lymph nodes were also noted to have s ome suspicious uptake. the patient had a history of multiple medical problems. Her case was discussed in the breast [facility]. 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 She also has a history of dementia and significant memory loss. Due to her poor performance status, as well as difficulty with transportation, it was felt that she would not be a candidate for chemotherapy or radiation. Therefore it was recommended that she proceed straight to surgery. She had mastectomy with axillary node dissection on 01/19/18. This revealed an invasive ductal carcinoma, grade 2, multicentric with largest focus 4 cm in greatest dimension. Tumor was within microns of the posterior margin, 1 mm from the anterior and lateral margins, and widely away from other margins. It extended into overlying skin and nipple with ulceration, and lymphovascular invasion was identified. 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 The patient had 2 left breast skin nodules excised, which also showed invasive ductal carcinoma involving skin and subcutaneous tissue. 6 out of 6 lymph nodes were involved, with the largest focus 2 cm with extranodal extension. In the hospital the patient developed drop in hemoglobin, which responded to blood transfusion. She was seen in consult in the hospital in case discussed with her and her son, who is her primary caregiver. It was recommended that she be started on hormonal manipulation with aromatase inhibitors. A prescription for the same was sent in to your pharmacy, and a bone density was also ordered. The patient was seen for her first office visit on 03/10/18. Her son stated that he got confused about starting the medication. He had changed her pharmacy, from the pharmacy of record at the time of admission. The office did contact him to set up a bone density, but he forgot the same. The patient did need to have drains in situ, until about mid 03/02. The incision was open for a prolonged time, and she was on a wound VAC till mid 04/01. She was then on a collagen based dressing, and ultimately healed by about 06/01. She started Anastrozole and Ca +D in 03/02. Her baseline BMD showed osteoporosis. She started Fosamax in 04/01 She developed abnormal findings on exam in 08/02 in the left chest wall. She was referred back to surgery and had biopsies from 2 sites, both positive for recurrence She was started on Ibrance and anastrozole in mid 10/02. She had 1cycle, but developed persistent neutropenia. Thus resumption of Ibrance was delayed, and the dose changed to 100 mg/d . Apparently there was delay in getting the scrip. She restarted it after her visit here on 11/24/18 She was admitted in 03/03 for low appetite and weakness, and was found to have an UTI and pneumonia. She improved with treatment her dose was increased to 125 mg per day in early 12/04. She was went to the ER at [facility] on 12/09/19, and to [facility] ER on 12/27/19, with UTI symptoms. she was treated with Cipro Telemedicine 02/29/20 the patient's son stated that she had some increase in irritation in the area of the tumor in the chest wall, which resolved with topical antifungal's. She has had some issues with constipation recently which appeared to be improving. . She denied any f/c/n/v/LAD/change in respiratory status. Her left sided weakness, and decreased mobility are stable. She continues to need a wheelchair. She has stable dysarthria. appetite is fair. her son reported no evidence of progression of the chest wall nodularity. Her ROS is otherwise as per HPI and negative out of 10. Telemedicine 03/28/20: The pt has completed her antibiotic for UTI in late 03/04. She is tolerating her regimen well subjectively. Her son reports doing some additional debridement of necrotic tissue with mild bleeding. This improved with additional topical care. Telemedicine 10/09/20 She denied any f/c/n/v/LAD/change in respiratory status. Her left sided weakness, and decreased mobility are stable. She continues to need a wheelchair. She has stable dysarthria. appetite is fair. her son reported possibly some possibly some improvement in nodularity in the left chest wall area. She has established with Nephrology, and has started Allopurinol. She is also on Kcl. Her ROS is otherwise as per HPI and negative out of 10. Telemed 12/09/20: history obtained from her son as patient is nonverbal No history of any fevers/chills/nausea/vomiting/LAD. Respiratory status is stable. She continues to have some issues with constipation off and on. He does not believe that there has been any change in her left chest wall involvement with possibly some improvement as drainage is less. Appetite is excellent according to him. She is continue follow-up with nephrology. Neurol ogic status is unchanged. Review of systems otherwise as per HPI and negative out of 10 Telemed 01/27/21 history obtained from her son as patient is nonverbal No history of any fevers/chills/nausea/vomiting/LAD. Respiratory status is stable. She continues to have some issues with constipation off and on. He does not believe that there has been any change in her left chest wall involvement. specifically, no fresh drainage or ulceration noted. Appetite is excellent according to him. She is continue follow-up with nephrology. Neurologic status is unchanged. Review of systems otherwise as per HPI and negative out of 10 Telemed 03/25/21: history obtained from her son as patient is nonverbal No history of any fevers/chills/nausea/vomiting/LAD. Respiratory status is stable. She continues to have some issues with constipation off and on. she has also had intermittent diarrhea. He does not believe that there has been any change in her left chest wall involvement. specifically, no fresh drainage or ulceration noted. he feels that there has been some increase scabbing over of the lesions actually. Appetite is excellent according to him. She is continue follow-up with nephrology. Neurologic status is unchanged. Review of systems otherwise as per HPI and negative out of 10 As above. The patient has actually not had a follow-up with us since 04/04, as her telemedicine visits were no longer covered by insurance, and her son stated that he could not get her to the office. She has continued on her regimen, and has been getting regular blood draws for monitoring by home care. She has CBC/CMP every 2 weeks, and tumor markers every 4 weeks. Her hemoglobin is typically in the 9-10 range, creatinine typically between 1.5-2, while Her CA 15-3 is usually the 50-70 range while CA-27-29 is in the 60-80 range. Her WBC is usually low because of Ibrance effect, and the 2-3 range, though ANC is generally above 1000 The patient was admitted this time because of increasing shortness of breath over the past 2 weeks, associated with progressive weakness and decrease in appetite. Orthopnea was noted. There has not been significant chest pain or cough according to the son. She was therefore brought into the hospital, where chest imaging showed bilateral infiltrates consistent with pulmonary edema. Her BNP was markedly elevated at troponins were also elevated in the 0.7-0.8 range. CBC showed hemoglobin of 6.5, WBC 3.4 with ANC of 1.79, and platelets of 134. Creatinine was increased compared to her baseline at 3.1. She'll begin treatment for further management. History was obtained from the son, Who was at the bedside, as the patient is essentially nonverbal. Review of Systems Constitutional: Reports poor appetite, Reports weakness Eyes: denies blurred vision, denies pain Ears: deny: decreased hearing, ear discharge, earache, tinnitus Ears, nose, mouth and throat: Denies headache, Denies sore throat Breasts: left: as per HPI Cardiovascular: Reports orthopnea, Reports shortness of breath Respiratory: Reports dyspnea Gastrointestinal: Denies abdominal pain, Denies diarrhea, Denies nausea, Denies vomiting Genitourinary: Reports post void dribbling, Reports urge incontinence Menstruation: Reports postmenopausal Musculoskeletal: Reports as per HPI, Reports muscle weakness Integumentary: Reports lesions (Left chest wall involvement with malignancy. Stable) Neurological: Reports as per HPI, Reports aphasia, Reports paralysis (Left- sided), Reports weakness Psychiatric: Reports confusion Endocrine: Reports fatigue Hematologic/Lymphatic: Reports as per HPI Past Medical History - Past Family History Mother Family Medical History: Cancer Medications and Allergies Home Medications Medication Instructions Recorded Confirmed Type Acetaminophen Tab [Tylenol] 650 mg PO Q4H PRN 09/08/22 09/08/22 History Albuterol Sulfate [Proventil Hfa] 2 puff INHALATION RT-Q4H PRN 09/08/22 09/08/22 History Anastrozole [Arimidex] 1 mg PO DAILY 09/08/22 09/08/22 History Docusate [Colace] 100 mg PO DAILY PRN 09/08/22 09/08/22 History Famotidine [Pepcid] 20 mg PO BID PRN 09/08/22 09/08/22 History Folic Acid 1 mg PO DAILY 09/08/22 09/08/22 History Furosemide [Lasix] 40 mg PO BID 09/08/22 09/08/22 History L.acidoph,Paracasei, B.lactis 1 cap PO DAILY 09/08/22 09/08/22 History [Probiotic] Latanoprost [Latanoprost 0.005%] 1 drop BOTH EYES HS 09/08/22 09/08/22 History Loratadine [Claritin] 10 mg PO DAILY 09/08/22 09/08/22 History Metoprolol Tartrate [Lopressor] 25 mg PO BID 09/08/22 09/08/22 History Palbociclib [Ibrance] 125 mg PO DIRECTED 09/08/22 09/08/22 History Potassium Chloride 20 meq PO DAILY 09/08/22 09/08/22 History Sennosides [Senokot] 8.6 mg PO DAILY PRN 09/08/22 09/08/22 History amLODIPine [Norvasc] 5 mg PO DAILY 09/08/22 09/08/22 History diphenhydrAMINE HCL [Benadryl] 25 mg PO DAILY PRN 09/08/22 09/08/22 History Allergies Allergy/AdvReac Type Severity Reaction Status Date / Time codeine Allergy Swelling Verified 09/08/22 08:50 Sulfa (Sulfonamide Allergy Swelling Verified 09/08/22 08:50 Antibiotics) Physical Exam Vitals: Vital Signs Temp Pulse Resp BP Pulse Ox 09/08/22 14:19 96 18 139/78 09/08/22 13:00 68 18 120/71 99 09/08/22 12:03 66 16 129/65 100 09/08/22 10:12 87 16 127/75 100 09/08/22 10:01 97.8 F 72 18 125/76 09/08/22 08:37 87 18 98 09/08/22 07:59 16 09/08/22 07:39 97.6 F 80 20 124/77 100 09/08/22 06:26 80 15 106/69 100 09/08/22 05:51 98.2 F 68 18 104/75 100 09/08/22 05:31 98.1 F 72 18 114/76 100 09/08/22 03:41 78 18 122/72 100 09/08/22 00:53 74 19 119/74 99 09/07/22 23:46 97.8 F 80 19 115/68 100 Intake and Output 09/07/22 09/08/22 09/08/22 22:59 06:59 14:59 Intake Total 0 310 Balance 0 310 Intake: Blood Product 0 310 Rc As-1 Unit 0 310 [id number] Other: Weight 61.235 kg - Constitutional General appearance: mild distress - EENT Eyes: EOMI, PERRLA ENT: hearing grossly normal, normal oropharynx - Neck Neck: no lymphadenopathy - Respiratory Respiratory: bilateral: rales - Cardiovascular Rhythm: regular Heart sounds: normal: S1, S2 - Gastrointestinal General gastrointestinal: normal bowel sounds, soft - Integumentary Nodularity and induration left upper chest wall, with scattered reddish nodular lesions. Overall appearance is actually Somewhat improved compared to her previous exam, with no significant open areas or drainage at this time - Neurologic Neurologic: CNII-XII intact - Musculoskeletal Musculoskeletal: generalized weakness, left sided weakness - Psychiatric Cannot assess orientation, as patient is nonverbal. She does appear to comprehend some simple commands Results CBC & Chem 7: 09/08/22 00:34 09/08/22 09:58 Labs: Abnormal Lab Results - Last 24 Hours (Table) 09/08/22 09/08/22 09/08/22 Range/Units 00:34 00:34 00:34 WBC 3.6 L (3.8-10.6) k/uL RBC 1.96 L (3.80-5.40) m/uL Hgb 6.5 L* (11.4-16.0) gm/dL Hct 20.0 L (34.0-46.0) % MCV 101.9 H (80.0-100.0) fL RDW 18.1 H (11.5-15.5) % Plt Count 134 L (150-450) k/uL Lymphocytes # (Manual) 0.14 L (1.0-4.8) k/uL Nucleated RBCs 6 H (0-0) /100 WBC APTT (22.0-30.0) sec D-Dimer (<0.60) mg/L FEU ABG pH (7.35-7.45) ABG pCO2 (35-45) mmHg ABG pO2 (83-108) mmHg ABG O2 Saturation (94-97) % Potassium 3.2 L (3.5-5.1) mmol/L Chloride (98-107) mmol/L Carbon Dioxide 19 L (22-30) mmol/L BUN 79 H (7-17) mg/dL Creatinine 3.12 H (0.52-1.04) mg/dL Glucose 148 H (74-99) mg/dL Calcium 8.1 L (8.4-10.2) mg/dL AST 41 H (14-36) U/L Troponin I 0.723 H* (0.000-0.034) ng/mL Albumin 3.1 L (3.5-5.0) g/dL Procalcitonin (0.02-0.09) ng/mL Urine Appearance (Clear) Urine Protein (Negative) Urine Blood (Negative) Ur Leukocyte Esterase (Negative) Urine RBC (0-5) /hpf Urine WBC (0-5) /hpf Urine WBC Clumps (None) /hpf Urine Bacteria (None) /hpf Hyaline Casts (0-2) /lpf Urine Mucus (None) /hpf Urine Yeast (Budding) (None) /hpf Crossmatch 09/08/22 09/08/22 09/08/22 Range/Units 01:52 01:52 02:09 WBC (3.8-10.6) k/uL RBC (3.80-5.40) m/uL Hgb (11.4-16.0) gm/dL Hct (34.0-46.0) % MCV (80.0-100.0) fL RDW (11.5-15.5) % Plt Count (150-450) k/uL Lymphocytes # (Manual) (1.0-4.8) k/uL Nucleated RBCs (0-0) /100 WBC APTT 21.2 L (22.0-30.0) sec D-Dimer 18.20 H (<0.60) mg/L FEU ABG pH (7.35-7.45) ABG pCO2 (35-45) mmHg ABG pO2 (83-108) mmHg ABG O2 Saturation (94-97) % Potassium (3.5-5.1) mmol/L Chloride (98-107) mmol/L Carbon Dioxide (22-30) mmol/L BUN (7-17) mg/dL Creatinine (0.52-1.04) mg/dL Glucose (74-99) mg/dL Calcium (8.4-10.2) mg/dL AST (14-36) U/L Troponin I (0.000-0.034) ng/mL Albumin (3.5-5.0) g/dL Procalcitonin (0.02-0.09) ng/mL Urine Appearance Cloudy H (Clear) Urine Protein Trace H (Negative) Urine Blood Small H (Negative) Ur Leukocyte Esterase Large H (Negative) Urine RBC (0-5) /hpf Urine WBC 26 H (0-5) /hpf Urine WBC Clumps Few H (None) /hpf Urine Bacteria Few H (None) /hpf Hyaline Casts 3 H (0-2) /lpf Urine Mucus Rare H (None) /hpf Urine Yeast (Budding) (None) /hpf Crossmatch See Detail 09/08/22 09/08/22 09/08/22 Range/Units 02:16 05:54 07:52 WBC (3.8-10.6) k/uL RBC (3.80-5.40) m/uL Hgb (11.4-16.0) gm/dL Hct (34.0-46.0) % MCV (80.0-100.0) fL RDW (11.5-15.5) % Plt Count (150-450) k/uL Lymphocytes # (Manual) (1.0-4.8) k/uL Nucleated RBCs (0-0) /100 WBC APTT (22.0-30.0) sec D-Dimer (<0.60) mg/L FEU ABG pH 7.48 H (7.35-7.45) ABG pCO2 29 L (35-45) mmHg ABG pO2 185 H (83-108) mmHg ABG O2 Saturation 100.0 H (94-97) % Potassium (3.5-5.1) mmol/L Chloride (98-107) mmol/L Carbon Dioxide (22-30) mmol/L BUN (7-17) mg/dL Creatinine (0.52-1.04) mg/dL Glucose (74-99) mg/dL Calcium (8.4-10.2) mg/dL AST (14-36) U/L Troponin I 0.825 H* (0.000-0.034) ng/mL Albumin (3.5-5.0) g/dL Procalcitonin 0.47 H (0.02-0.09) ng/mL Urine Appearance (Clear) Urine Protein (Negative) Urine Blood (Negative) Ur Leukocyte Esterase (Negative) Urine RBC (0-5) /hpf Urine WBC (0-5) /hpf Urine WBC Clumps (None) /hpf Urine Bacteria (None) /hpf Hyaline Casts (0-2) /lpf Urine Mucus (None) /hpf Urine Yeast (Budding) (None) /hpf Crossmatch 09/08/22 09/08/22 09/08/22 Range/Units 09:58 09:58 13:44 WBC (3.8-10.6) k/uL RBC (3.80-5.40) m/uL Hgb (11.4-16.0) gm/dL Hct (34.0-46.0) % MCV (80.0-100.0) fL RDW (11.5-15.5) % Plt Count (150-450) k/uL Lymphocytes # (Manual) (1.0-4.8) k/uL Nucleated RBCs (0-0) /100 WBC APTT (22.0-30.0) sec D-Dimer (<0.60) mg/L FEU ABG pH (7.35-7.45) ABG pCO2 (35-45) mmHg ABG pO2 (83-108) mmHg ABG O2 Saturation (94-97) % Potassium 3.3 L (3.5-5.1) mmol/L Chloride 112 H (98-107) mmol/L Carbon Dioxide (22-30) mmol/L BUN 71 H (7-17) mg/dL Creatinine 3.10 H (0.52-1.04) mg/dL Glucose 130 H (74-99) mg/dL Calcium 7.4 L (8.4-10.2) mg/dL AST (14-36) U/L Troponin I 0.725 H* (0.000-0.034) ng/mL Albumin (3.5-5.0) g/dL Procalcitonin (0.02-0.09) ng/mL Urine Appearance Cloudy H (Clear) Urine Protein Trace H (Negative) Urine Blood Moderate H (Negative) Ur Leukocyte Esterase Large H (Negative) Urine RBC 14 H (0-5) /hpf Urine WBC 23 H (0-5) /hpf Urine WBC Clumps (None) /hpf Urine Bacteria Occasional H (None) /hpf Hyaline Casts 8 H (0-2) /lpf Urine Mucus Rare H (None) /hpf Urine Yeast (Budding) Few H (None) /hpf Crossmatch Microbiology - Last 24 Hours (Table) 09/08/22 02:09 Urine Culture - Preliminary Urine,Voided Chest x-ray: report reviewed Assessment and Plan (1) Pulmonary edema Narrative/Plan: The patient does have a prior cardiac history, as noted in the HPI. She appears to have presented with CHF, based on her clinical symptoms, exam as well as imaging. Defer to the admitting service for ongoing treatment. Cardiology and pulmonary medicine also been consulted. Current Visit: Yes Status: Acute Code(s): J81.1 - CHRONIC PULMONARY EDEMA SNOMED Code(s): 75243969 (2) Pancytopenia Narrative/Plan: The patient does have underlying cytopenias, due to Ibrance effect, and also has some anemia of CK D. However as noted in the HPI her counts are typically quite adequate and she has not required any intervention for the same now for several years. During this admission WBC and platelets are still quite adequate while hemoglobin is lower than normal. This is most likely due to added stress of acute illness. - Transfuse to keep your greater than 7 - Hold Ibrance Current Visit: Yes Status: Acute Code(s): D61.818 - OTHER PANCYTOPENIA SNOMED Code(s): 805475325 (3) Breast cancer, stage 4 Narrative/Plan: The patient has localized metastatic disease to the left chest wall, which was not operable. Because of her deficits from her stroke and difficulty with transportation, the patient was not felt to be a candidate for radiation. She was therefore treated with systemic therapy and has actually done surprisingly well given her age and underlying performance status. She is actually not had any FOLLOW-up since 04/04 but has continued lab monitoring. Labs from 08/21/22 showed tumor markers to be in the same range as before. On physical exam the left chest wall actually appears somewhat improved compared to her baseline, by my recollection. Therefore at this time the third appear to be any progression of her breast cancer. Therefore if her acute situation is resolved in a satisfactory manner, she can resume her breast cancer treatment Ibrance will be held for now. Current Visit: Yes Status: Acute Code(s): C50.919 - MALIGNANT NEOPLASM OF UNSP SITE OF UNSPECIFIED FEMALE BREAST SNOMED Code(s): 558036804 Plan: At the time of my examination, the patient is partially improved versus on 10 0% nonrebreather. I had a detailed discussion regarding her status with her son was at the bedside. The son is the primary caregiver and POA. He was advised that her current presentation does not appear to be related to her breast cancer or the cancer treatment. However her prognosis from the same at this time is quite guarded. We discussed that in this situation, if the patient declines despite aggressive medical management, and has significant underlying problems, the chances of any benefit from endotracheal intubation and CPR would be very low. Therefore I would recommend a no code no CPR status for her. The son stated that he has already decided on a no CPR. I advised him that it would be very reasonable to also change her to a no intubation status, while continuing aggressive medical management.Case also discussed with the admitting service
[2022-09-08] MEDS ORDERED: FAMOTIDINE 20 MG TAB PO PRN (15:43)
--- NOTE | 2022-09-08 16:31 | P.PN ---
Progress Note - Text Progress Note Date: 09/08/22 Hospital course: Patient is an 87-year-old female with a past medical history of stage IV metastatic breast cancer currently on Ibrance, atrial fibrillation not on anticoagulation, CVA with left-sided residual deficits resulting, hypertension, hyperlipidemia, and dementia. Patient is bedridden from previous CVA and lives at home with her son who is her caregiver. She presented to the emergency department secondary to worsening mentation. Patient's son at bedside reports over the past 3 days his mother's went from being awake and talkative to very lethargic and nonverbal and he noticed that she had been experiencing worsening difficulties with her breathing. Patient was found by EMS in respiratory failure with SpO2 of 75% on room air requiring oxygen supplementation. Upon arrival to the emergency department patient minimally responsive and nonverbal. She is on 15 L nonrebreather mask maintaining saturations in the 90s. CBC revealing pancytopenia with WBC count of 3.6, hemoglobin of 6.5, and platelet count of 134. D-dimer was elevated at 18.20. CMP revealing hyperkalemia with potassium of 3.2 and an acute kidney injury with BUN of 79, creatinine 3.12, and GFR of 13 with baseline creatinine of 1.9. Troponin elevated at 0.723. ProBNP 45,200. Covid PCR, influenza A, influenza B were negative. Urinalysis positive for infection. Chest x-ray revealing moderately severe pulmonary edema with cardiomegaly and pleural fluid possibly resulting from combined congestive heart failure and RDS. Patient admitted under our services with consultations to pulmonology, cardiology, nephrology, oncology, and palliative care. Troponins were trended Physical exam: Patient seen and fully evaluated at bedside this morning. Patient's son at bedside. Patient remains minimally responsive and nonverbal on nonrebreather at 15 L. Discussed CODE STATUS with patient's son secondary to patient's critical condition and poor prognosis. Patient to be DO NOT RESUSCITATE as pts son does not want her to go under intubation nor any other heroic lifesaving efforts. Vital signs reviewed and stable. General: Acutely ill appearing. Derm: Skin warm and dry, normal coloration for ethnicity. Head: Atraumatic, normocephalic and symmetric. Eyes: EOMs intact, no lid lag, and anicteric sclera Mouth: no lip lesions, mucus membranes moist Cardiovascular: regular rate and rhythm with normal S1S2, no murmur, positive posterior tibial pulses bilaterally, and cap refill < 2 seconds. Lungs: Respirations tachypneic and labored on NRB at 15L, mild distress with diaphragmatic breathing, lungs diffuse coarse rhonchi Abdominal: soft, nontender to palpation, no guarding, no appreciable organomegaly Ext: No gross muscle atrophy, no edema, no contractures Neuro: Minimally responsive, withdraws from pain. Pupils 2 mm equal bilaterally. Psych: Minimally responsive Assessment and Plan of Care: Acute hypoxic respiratory failure, likely multifactorial secondary to acute congestive heart failure (unclear type pending echocardiogram) and possible underlying pneumonia Acute metabolic encephalopathy Elevated troponins Elevated d-dimer Permanent atrial fibrillation not on anticoagulation secondary to history of severe GI bleeding -Cardiology following -Pulmonology following -Palliative care consulted -Telemetry monitoring -ProBNP 45,200, troponins 0.723, 0.825, and 0.725. D-dimer 18.20. -Daily weights -Close monitoring of I's and O's -Cardiac diet -Lasix -Continuation of daily medications including: Amlodipine and metoprolol -Lipid profile and Hgb A1c with a.m. labs. -Continued close monitoring of electrolytes while diuresing. -Hold anticoagulation as patient's son reports patient with long-standing history of severe GI bleeding. -Echocardiogram Acute kidney injury on stage III chronic kidney disease -Nephrology following -Renal ultrasound was ordered -Bladder management with close I's and O's Pancytopenia, secondary to chemotherapeutic agent Ibrance. -Order placed to transfuse 1 unit PRBCs -Continue to monitor H&H and transfuse as needed for hemoglobin less than 7. Pneumonia UTI -Continue IV antibiotics Zosyn pending further culture results. Hypokalemia -Replaced. We will continue to monitor with repeat a.m. labs. CODE STATUS: DO NOT RESUSCITATE/DO NOT INTUBATE DVT prophylaxis: SCDs secondary to history of bleeding Discussed with: Patient son at bedside and RN Anticipated discharge date: Clinical course to determine his prognosis is poor Anticipated discharge place: Home with son and home care versus senior living facility A total of 38 minutes was spent on the care of this complex patient more than 50% of the time was spent in counseling and care coordination. I reviewed the documentation as provided by the JAYSON above, who is the original author of this note. I agree with the documented assessment and plan, with the following changes: none
[2022-09-08] MEDS ORDERED: POTASSIUM CHLORIDE ER 20 MEQ TAB.ER PO STA (17:36)
[2022-09-08 21:09] LABS: % Iron Saturation 13.04 (12.00-45.00)
[2022-09-08] MEDS: PIPERACILLIN-TAZOBACTAM 3.375 GM in SODIUM CHLORIDE 0.9% 100 ML IVPB SCH (21:41)
[2022-09-08] MEDS: LATANOPROST 0.005% OPHTH DROPS 2.5 ML BTL BOTH EYES SCH (21:41)
[2022-09-08] MEDS: METOPROLOL TARTRATE 25 MG TAB PO SCH (21:41)
[2022-09-09 08:04] LABS: Anisocytosis Slight; Basophils % (A) 0 %; Eosinophils % (A) 1 %; HCT 29.5 % (34.0-46.0); Hypochromasia Marked; Lymphocytes # (A) 0.2 k/uL (1.0-4.8); Lymphocytes % (A) 6 %; MCH 31.9 pg (25.0-35.0); MCHC 31.4 g/dL (31.0-37.0); MCV 101.5 fL (80.0-100.0); Macrocytosis Moderate; Mean Platelet Volume 10.2; Monocytes # (A) 0.1 k/uL (0-1.0); Monocytes % (A) 3 %; Neutrophils # (A) 3.6 k/uL (1.3-7.7); Neutrophils % (A) 90 %; Platelet Count 102 k/uL (150-450); Poikilocytosis Marked; RDW 18.9 % (11.5-15.5)
[2022-09-09 08:14] LABS: HGB 9.3 gm/dL (11.4-16.0)
[2022-09-09 08:27] LABS: Calcium 8.1 mg/dL (8.4-10.2); Potassium 3.4 mmol/L (3.5-5.1)
[2022-09-09] MEDS: FOLIC ACID 1 MG TAB PO SCH (08:39)
[2022-09-09] MEDS: amLODIPine 5 MG TAB PO SCH (08:39)
[2022-09-09] MEDS: METOPROLOL TARTRATE 25 MG TAB PO SCH ×2 (08:39→20:56)
--- NOTE | 2022-09-09 08:39 | XR ---
EXAMINATION TYPE: XR chest 2V DATE OF EXAM: 09/09/2022 COMPARISON: 09/08/2022 INDICATION: Pneumonia TECHNIQUE: Frontal and lateral views of the chest are obtained. FINDINGS: The heart size is upper limits of normal. The pulmonary vasculature is normal. Diffuse scattered infiltrates are present bilaterally. This is improving from comparison. Small poste rior medial left lung base nodule appears to be present. IMPRESSION: 1. Diffuse bilateral lung infiltrates mass slight improvement over the interval. Continued follow-up is recommended.
[2022-09-09] MEDS: FUROSEMIDE 10 MG/ML 4 ML VIAL IV SCH (08:45)
[2022-09-09] MEDS: PIPERACILLIN-TAZOBACTAM 3.375 GM in SODIUM CHLORIDE 0.9% 100 ML IVPB SCH ×2 (09:06→21:01)
[2022-09-09] MEDS ORDERED: FUROSEMIDE 10 MG/ML 4 ML VIAL IV STA (09:41)
--- NOTE | 2022-09-09 11:16 | P.PN ---
Subjective Patient is seen in follow-up for acute kidney injury on chronic kidney disease. Renal function stable. Sodium level 151. Hemodynamically stable. Nonoliguric. Patient is not a reliable historian. Vital signs are stable. General: No acute distress. HEENT: Head exam is unremarkable. On nasal cannula. LUNGS: Breath sounds decreased. HEART: Rate and Rhythm are regular. ABDOMEN: Soft, no distention. EXTREMITITES: Trace edema. Objective - Vital Signs Vital signs: Vital Signs Temp 97.6 F 09/09/22 08:00 Pulse 79 09/09/22 08:00 Resp 17 09/09/22 08:00 BP 140/71 09/09/22 08:00 Pulse Ox 93 L 09/09/22 08:00 FiO2 Intake & Output 09/08/22 09/09/22 09/09/22 18:59 06:59 18:59 Intake Total 310 Output Total 500 450 Balance -190 -450 Weight 61.235 kg Intake: Blood Product 310 Rc As-1 Unit 310 [id number] Output: Urine 500 450 Other: Voiding Method Diaper Diaper - Labs CBC & Chem 7: 09/09/22 07:55 09/09/22 07:55 Labs: Abnormal Lab Results - Last 24 Hours (Table) 09/08/22 09/08/22 09/08/22 Range/Units 07:52 09:58 10:00 RBC (3.80-5.40) m/uL Hgb (11.4-16.0) gm/dL Hct (34.0-46.0) % MCV (80.0-100.0) fL RDW (11.5-15.5) % Plt Count (150-450) k/uL Lymphocytes # (1.0-4.8) k/uL Sodium (137-145) mmol/L Potassium (3.5-5.1) mmol/L Chloride (98-107) mmol/L BUN (7-17) mg/dL Creatinine (0.52-1.04) mg/dL Glucose (74-99) mg/dL Calcium (8.4-10.2) mg/dL Iron 28 L (50-170) ug/dL TIBC 217 L (228-460) ug/dL Transferrin 155.0 L (204.0-354.0) mg/dL Troponin I 0.725 H* (0.000-0.034) ng/mL Procalcitonin 0.47 H (0.02-0.09) ng/mL Urine Appearance (Clear) Urine Protein (Negative) Urine Blood (Negative) Ur Leukocyte Esterase (Negative) Urine RBC (0-5) /hpf Urine WBC (0-5) /hpf Urine Bacteria (None) /hpf Hyaline Casts (0-2) /lpf Urine Mucus (None) /hpf Urine Yeast (Budding) (None) /hpf 09/08/22 09/09/22 09/09/22 Range/Units 13:44 07:55 07:55 RBC 2.90 L (3.80-5.40) m/uL Hgb 9.3 L D (11.4-16.0) gm/dL Hct 29.5 L (34.0-46.0) % MCV 101.5 H (80.0-100.0) fL RDW 18.9 H (11.5-15.5) % Plt Count 102 L (150-450) k/uL Lymphocytes # 0.2 L (1.0-4.8) k/uL Sodium 151 H (137-145) mmol/L Potassium 3.4 L (3.5-5.1) mmol/L Chloride 113 H (98-107) mmol/L BUN 73 H (7-17) mg/dL Creatinine 3.00 H (0.52-1.04) mg/dL Glucose 129 H (74-99) mg/dL Calcium 8.1 L (8.4-10.2) mg/dL Iron (50-170) ug/dL TIBC (228-460) ug/dL Transferrin (204.0-354.0) mg/dL Troponin I (0.000-0.034) ng/mL Procalcitonin (0.02-0.09) ng/mL Urine Appearance Cloudy H (Clear) Urine Protein Trace H (Negative) Urine Blood Moderate H (Negative) Ur Leukocyte Esterase Large H (Negative) Urine RBC 14 H (0-5) /hpf Urine WBC 23 H (0-5) /hpf Urine Bacteria Occasional H (None) /hpf Hyaline Casts 8 H (0-2) /lpf Urine Mucus Rare H (None) /hpf Urine Yeast (Budding) Few H (None) /hpf Microbiology - Last 24 Hours (Table) 09/08/22 00:54 Blood Culture - Preliminary Blood No Growth after 24 hours 09/08/22 02:09 Urine Culture - Preliminary Urine,Voided Assessment and Plan Plan: Assessment: 1. Acute kidney injury secondary to ATN secondary to cardiorenal syndrome and anemia. Creatinine 3.12 on admission - stable at 3.0 today. No hydronephrosis noted on kidney ultrasound. 2. Chronic kidney disease stage IV with baseline creatinine in the range of 1 .72 secondary to nephrosclerosis. 3. Acute blood loss anemia status post blood transfusion. No active bleeding. Patient is noted to be pancytopenic possibly from underlying malignancy/chemo. Hemoglobin better. Iron deficiency noted. 4. Metastatic breast cancer. Oncology following. 5. Acute hypoxic respiratory failure. 6. Volume overload. Improving with diuresis. 7. Hypokalemia from diuresis and poor intake. 8. Hypernatremia from lack of oral water intake. Plan: Maintain IV Lasix. Follow-up echocardiogram. Add IV iron. Follow-up cultures. Monitor bladder scans to make sure no urinary retention. Avoid nephrotoxins. Start D5W at 75 mL an hour. Replace potassium. Prognosis guarded.
[2022-09-09] MEDS: POTASSIUM CHLORIDE 20 MEQ in WATER FOR INJECTION 1 100ML.BAG IVPB SCH ×2 (11:52→13:42)
[2022-09-09] MEDS: DEXTROSE 5% IN WATER 1,000 ML IV SCH ×2 (11:52→23:17)
[2022-09-09 12:16] VITALS: BMI 21.7
[2022-09-09] MEDS: SODIUM FERRIC GLUCONAT-SUCROSE 125 MG in SODIUM CHLORIDE 0.9% 100 ML IVPB SCH (12:55)
--- NOTE | 2022-09-09 14:09 | P.PN ---
Subjective This is a pleasant 87-year-old female past medical history significant for metastatic breast cancer, CVA, hypertension, dementia, dyslipidemia, no known history of cardiac disease. Patient does not follow with a die setter. We have been asked to see in consultation for congestive heart failure. Patient presents to the emergency department by her son due to worsening shortness of breath and altered mental status. Patient is seen in the ER, unable to respond to questions. She is on a non-rebreather. She appears short of breath. Unable to accurartely describe her symptoms. Her son is at bedside, states patient has had low oxygen levels for the past 3 days. Worsening altered mental status. Patient was started on IV Lasix and IV antibiotics in the ER. 09/09/2022 Patient seen and examined at bedside, lying flat, no acute distress, unable to answer questions at time of exam. Has been weaned to 5L nasal cannula with O2 95%. Continues to be on IV Lasix. 2D echocardiogram pending, however, will not likely change over. Labs: Sodium 151, past 2.4, BUN 73, serum creatinine 2.0, hemoglobin 9.3, platelets 102 PHYSICAL EXAMINATION Blood pressure 140/71, heart rate 79, afebrile, oxygen saturations 9395 percent 5L NC CONSTITUTIONAL: No apparent distress. HEENT: Head is normocephalic. Mucous membranes of the mouth are dry. No JVD. CHEST EXAMINATION: Lungs are diminished to auscultation bilaterally. HEART EXAMINATION: Regular rate and rhythm. S1, S2 heard. Systolic ejection murmur. No gallops or rub. ABDOMEN: Soft, nontender. Positive bowel sounds. EXTREMITIES: 2+ peripheral pulses, no lower extremity edema and no calf te nderness. NEUROLOGIC EXAMINATION: Patient is awake, lethargic, unable to answer questions, not oriented ASSESSMENT Altered mental status Acute hypoxic respiratory failure Acute heart failure exacerbation, unknown EF at this time secondary to no echo report Pancytopenia Elevated d-dimer Hypokalemia Acute kidney injury Acute Anemia, hemoglobin 6.5. Elevated troponin, secondary to above Metastatic breast cancer History of CVA Hypertension Dementia Dyslipidemia PLAN Continue IV Lasix, agree with decreasing dose Nephrology and Pulmonary following Optimize respiratory status as able Patient is a DNR Prognosis is poor From a cardiology perspective, no further changes at this time. We will follow the patient as needed. Please re-consult if needed. Nurse practitioner note has been reviewed by physician. Signing provider agrees with the documented findings, assessment, and plan of care. Objective - Vital Signs Vital signs: Vital Signs Temp 97.6 F 09/09/22 08:00 Pulse 79 09/09/22 08:00 Resp 17 09/09/22 08:00 BP 140/71 09/09/22 08:00 Pulse Ox 93 L 09/09/22 08:00 FiO2 Intake & Output 09/08/22 09/09/22 09/09/22 18:59 06:59 18:59 Intake Total 310 Output Total 500 450 Balance -190 -450 Weight 61.235 kg Intake: Blood Product 310 Rc As-1 Unit 310 [id number] Output: Urine 500 450 Other: Voiding Method Diaper Diaper - Labs CBC & Chem 7: 09/09/22 07:55 09/09/22 07:55 Labs: Abnormal Lab Results - Last 24 Hours (Table) 09/08/22 09/08/22 09/08/22 Range/Units 07:52 09:58 09:58 RBC (3.80-5.40) m/uL Hgb (11.4-16.0) gm/dL Hct (34.0-46.0) % MCV (80.0-100.0) fL RDW (11.5-15.5) % Plt Count (150-450) k/uL Lymphocytes # (1.0-4.8) k/uL Sodium (137-145) mmol/L Potassium 3.3 L (3.5-5.1) mmol/L Chloride 112 H (98-107) mmol/L BUN 71 H (7-17) mg/dL Creatinine 3.10 H (0.52-1.04) mg/dL Glucose 130 H (74-99) mg/dL Calcium 7.4 L (8.4-10.2) mg/dL Iron (50-170) ug/dL TIBC (228-460) ug/dL Transferrin (204.0-354.0) mg/dL Troponin I 0.725 H* (0.000-0.034) ng/mL Procalcitonin 0.47 H (0.02-0.09) ng/mL Urine Appearance (Clear) Urine Protein (Negative) Urine Blood (Negative) Ur Leukocyte Esterase (Negative) Urine RBC (0-5) /hpf Urine WBC (0-5) /hpf Urine Bacteria (None) /hpf Hyaline Casts (0-2) /lpf Urine Mucus (None) /hpf Urine Yeast (Budding) (None) /hpf 09/08/22 09/08/22 09/09/22 Range/Units 10:00 13:44 07:55 RBC 2.90 L (3.80-5.40) m/uL Hgb 9.3 L D (11.4-16.0) gm/dL Hct 29.5 L (34.0-46.0) % MCV 101.5 H (80.0-100.0) fL RDW 18.9 H (11.5-15.5) % Plt Count 102 L (150-450) k/uL Lymphocytes # 0.2 L (1.0-4.8) k/uL Sodium (137-145) mmol/L Potassium (3.5-5.1) mmol/L Chloride (98-107) mmol/L BUN (7-17) mg/dL Creatinine (0.52-1.04) mg/dL Glucose (74-99) mg/dL Calcium (8.4-10.2) mg/dL Iron 28 L (50-170) ug/dL TIBC 217 L (228-460) ug/dL Transferrin 155.0 L (204.0-354.0) mg/dL Troponin I (0.000-0.034) ng/mL Procalcitonin (0.02-0.09) ng/mL Urine Appearance Cloudy H (Clear) Urine Protein Trace H (Negative) Urine Blood Moderate H (Negative) Ur Leukocyte Esterase Large H (Negative) Urine RBC 14 H (0-5) /hpf Urine WBC 23 H (0-5) /hpf Urine Bacteria Occasional H (None) /hpf Hyaline Casts 8 H (0-2) /lpf Urine Mucus Rare H (None) /hpf Urine Yeast (Budding) Few H (None) /hpf 09/09/22 Range/Units 07:55 RBC (3.80-5.40) m/uL Hgb (11.4-16.0) gm/dL Hct (34.0-46.0) % MCV (80.0-100.0) fL RDW (11.5-15.5) % Plt Count (150-450) k/uL Lymphocytes # (1.0-4.8) k/uL Sodium 151 H (137-145) mmol/L Potassium 3.4 L (3.5-5.1) mmol/L Chloride 113 H (98-107) mmol/L BUN 73 H (7-17) mg/dL Creatinine 3.00 H (0.52-1.04) mg/dL Glucose 129 H (74-99) mg/dL Calcium 8.1 L (8.4-10.2) mg/dL Iron (50-170) ug/dL TIBC (228-460) ug/dL Transferrin (204.0-354.0) mg/dL Troponin I (0.000-0.034) ng/mL Procalcitonin (0.02-0.09) ng/mL Urine Appearance (Clear) Urine Protein (Negative) Urine Blood (Negative) Ur Leukocyte Esterase (Negative) Urine RBC (0-5) /hpf Urine WBC (0-5) /hpf Urine Bacteria (None) /hpf Hyaline Casts (0-2) /lpf Urine Mucus (None) /hpf Urine Yeast (Budding) (None) /hpf Microbiology - Last 24 Hours (Table) 09/08/22 00:54 Blood Culture - Preliminary Blood No Growth after 24 hours 09/08/22 02:09 Urine Culture - Preliminary Urine,Voided
--- NOTE | 2022-09-09 15:27 | P.PN ---
Subjective Progress Note Date: 09/09/22 87-year-old female seen in the emergency room. She was apparently brought in by EMS, on September 07, at 2300 hrs. We saw her in room 16. Her son was at the bedside. The patient has a history of metastatic breast cancer. All the history is obtained from the son, and from the emergency room documentation. The patient apparently has not been doing well at home for the last 3 days, with low saturations. Apparently the saturations were in the 60s. In addition, she developed mental status changes, and was very lethargic and somnolent. She was not coughing. The patient was choking while taking her medications, and eating a very small amount that she eats. The patient is currently taking Ibrance for her breast cancer. She is seen typically by a visiting physician. She has a history of metastatic breast cancer, as mentioned above. She's currently on a nonrebreather mask, and saline at 130 mL an hour. A blood gas showed a pO2 of 185, pCO2 29, and a pH is 7.48. The patient was on Rocephin, and we changed it to Zosyn. Her urine looks like it may be positive for a urinary tract infectio n. Her troponin was elevated. All this was told the son. White count 3.6, hemoglobin 6.5, hematocrit 20, and platelet count 234,000. D-dimer was 18.0. Sodium 145, potassium 3.3, chlorides 112, CO2 22, with an anion gap of 11, BUN 71, and creatinine 3.10. Glucose 130. Troponin is 0.723, 0.825, and 0.725. N- terminal proBNP was 45,200. Urine is positive for leukocyte esterase, WBCs, bacteria, and WBC clumps. Chest x-rays consistent with heart failure, although there may be a component of pneumonia as well. The patient is seen today 09/09/2022 in follow-up on the selective care unit. S he is currently resting in bed. Her family is at the bedside. She is currently maintaining O2 saturations in the 90s on 3 L/m per nasal cannula. Afebrile. Hemodynamically stable. Chest x-ray continues to show diffuse bilateral lung infiltrates. She is status post 1 unit of packed red blood cells this admission. Urine culture positive for gram-negative bacilli. Blood culture reveals no growth to date. White count 4.0. Hemoglobin 9.3. Platelets 102. Sodium 151. Potassium 3.4. BUN 73. Creatinine 3.00. Glucose 129. She is continued on Zosyn. IV diuretics. Currently in a negative balance. Objective - Vital Signs Vital signs: Vital Signs Temp 97.9 F 09/09/22 12:00 Pulse 80 09/09/22 12:00 Resp 18 09/09/22 12:00 BP 135/74 09/09/22 12:00 Pulse Ox 94 L 09/09/22 12:00 FiO2 Intake & Output 09/08/22 09/09/22 09/09/22 18:59 06:59 18:59 Intake Total 310 Output Total 500 450 Balance -190 -450 Weight 61.235 kg 61.235 kg Intake: Blood Product 310 Rc As-1 Unit 310 [id number] Output: Urine 500 450 Other: Voiding Method Diaper Diaper - Exam Tachypnea, somnolent/lethargic. The patient is on 3 L/m per nasal cannula. HEENT examination is grossly unremarkable. Neck supple. Full range of motion. No adenopathy thyromegaly or neck vein distention. Cardiovascular examination reveals regular rhythm rate. S1-S2 normal. No S3 or S4. No discernible murmur noted. Heart rate 80 bpm. Lungs reveal bilateral coarse rhonchi. Bilateral crackles are appreciated. No wheezes. Breath sounds equal bilaterally. She does not take a deep breath. Saturations are 94% on 3 L nasal cannula. Abdomen soft, without bowel sounds. Extremities are intact. No cyanosis clubbing or significant edema.. Skin reveals multiple areas of ecchymoses. Neurologic examination cannot be adequately assessed as the patient's very lethargic and somnolent. - Labs CBC & Chem 7: 09/09/22 07:55 09/09/22 07:55 Labs: Abnormal Lab Results - Last 24 Hours (Table) 09/08/22 09/09/22 09/09/22 Range/Units 10:00 07:55 07:55 RBC 2.90 L (3.80-5.40) m/uL Hgb 9.3 L D (11.4-16.0) gm/dL Hct 29.5 L (34.0-46.0) % MCV 101.5 H (80.0-100.0) fL RDW 18.9 H (11.5-15.5) % Plt Count 102 L (150-450) k/uL Lymphocytes # 0.2 L (1.0-4.8) k/uL Sodium 151 H (137-145) mmol/L Potassium 3.4 L (3.5-5.1) mmol/L Chloride 113 H (98-107) mmol/L BUN 73 H (7-17) mg/dL Creatinine 3.00 H (0.52-1.04) mg/dL Glucose 129 H (74-99) mg/dL Calcium 8.1 L (8.4-10.2) mg/dL Iron 28 L (50-170) ug/dL TIBC 217 L (228-460) ug/dL Transferrin 155.0 L (204.0-354.0) mg/dL Microbiology - Last 24 Hours (Table) 09/08/22 02:09 Urine Culture - Preliminary Urine,Voided Gram Neg Bacilli 09/08/22 00:54 Blood Culture - Preliminary Blood No Growth after 24 hours Assessment and Plan Assessment: Acute hypoxemic respiratory failure, likely multifactorial, in part related to fluid overload/CHF, plus possible underlying pneumonia. History of metastatic breast cancer. Rule out non-ST segment elevation myocardial infarction. Acute kidney injury. Possible urinary tract infection. Pancytopenia. Status post 1 unit of packed red blood cells. Current hemoglobin 9.3. Platelets 102. Multiple other medical problems and comorbidities. Plan: The patient was seen and evaluated Chest x-ray, labs and medications reviewed Family members at the bedside including her son He seemed unhappy about the patient's prognosis Her prognosis is poor We will sign off the case I have personally seen and examined the patient, performed the documentation and the assessment and plan as written. Number of minutes spent on the visit: 10.
--- NOTE | 2022-09-09 16:03 | P.PN ---
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 Upon arrival to the emergency department patient minimally responsive and nonverbal. She required 15 L nonrebreather mask maintaining saturations in the 90s. CBC revealing pancytopenia with WBC count of 3.6, hemoglobin of 6.5, and platelet count of 134. D-dimer was elevated at 18.20. CMP revealing hyperkalemia with potassium of 3.2 and an acute kidney injury with BUN of 79, creatinine 3.12, and GFR of 13 with baseline creatinine of 1.9. Troponin elevated at 0.723. ProBNP 45,200. Covid PCR, influenza A, influenza B were negative. Urinalysis positive for infection. Chest x-ray revealing moderately severe pulmonary edema with cardiomegaly and pleural fluid possibly resulting from combined congestive heart failure and RDS. Patient admitted under our services with consultations to pulmonology, cardiology, nephrology, oncology, and palliative care. Troponins were trended and remianed flat. Imaging: Renal/bladder ultrasound-cholelithiasis with gallbladder polyp, repeat in 6 months, no hydronephrosis Patient seen and examined at bedside. She does tell me her name. She does shake her head yes to feeling somewhat scared. She denies any pain. Son arrived outside of rheumatic had just finished evaluating the patient. He was updated. General: Ill-appearing, no distress, appears at stated age Derm: warm, dry Head: atraumatic, normocephalic, symmetric Eyes: EOMI, no lid lag, anicteric sclera Mouth: no lip lesion, mucus membranes moist Cardiovascular: S1S2 regular, no murmur, positive posterior tibial pulse bilateral, Lungs: Course of breath sounds bilateral, no rhonchi, no rales , no accessory muscle use Abdominal: soft, nontender to palpation, no guarding, no appreciable organomegaly Ext: no gross muscle atrophy, no edema, no contractures Neuro: Extraocular motion intact, pupils equal bilaterally, garbled speech Psych: Alert, oriented to self, appears anxious Assessment/plan: Acute hypoxic respiratory failure, likely multifactorial in the setting of acute congestive heart failure and elevated d-dimer Type II non-STEMI related to heart failure Elevated d-dimer Acute metabolic encephalopathy -Clinically doubt pneumonia with patient's pro-calcitonin being less than 2 and rapid improvement in oxygen requirements with IV Lasix. We'll continue with Zosyn at this time. We'll repeat pro-calcitonin in a.m. and if less then prior will discontinue antibiotics -Patient has developed hypernatremia likely secondary to decreased oral intake. We'll decrease Lasix to once daily -Strict I's and O's, daily weights -Cardiology recommendations: Continue with current care, will follow as needed -Pulmonary has signed off -Await echocardiogram -With significant elevated d-dimer and known metastatic breast cancer there is a high concern for possible deep venous thrombosis. Patient is not a candidate for a CT of the chest secondary to acute renal failure with a creatinine of 3. We'll proceed with VQ scan as patient's oxygen requirements have stabilized as well as bilateral lower extremity Dopplers. Acute kidney injury on chronic kidney disease stage III Hypernatremia -Nephrology recommendations: Continue with Lasix, start D5W at 75 an hour - avoid nephrotoxic agents Dysphagia - speech recommnedations - currently not safe for oral intake Pancytopenia Stage IV breast cancer on Ibrance Iron deficiency anemia -IV iron 1 -Improving -Status post 1 unit packed red blood cells -Continue to follow CBC -Oncology recommendations Possible UTI -Culture with gram-negative bacilli -Continue Zosyn and await for culture to finalize Hypokalemia -Replace and recheck in a.m. Chronic: Prior CVA with residula aphasia and left sided defecits Permanent atrial fibrillation not on anticoagulation secondary to severe GI bleeding DVT prophylaxis: SCDs Discussed with: Patient, nursing, speech, son Anticipated discharge: pending clinical course Anticipated discharge place: return home A total of 45 minutes was spent on the care of this complex patient more than 50% of the time was spent in counseling and care coordination. Objective - Vital Signs Vital signs: Vital Signs Temp 97.9 F 09/09/22 12:00 Pulse 80 09/09/22 12:00 Resp 18 09/09/22 12:00 BP 135/74 09/09/22 12:00 Pulse Ox 94 L 09/09/22 12:00 FiO2 Intake & Output 10/09/09/22 09/09/22 18:59 06:59 18:59 Intake Total 310 Output Total 500 450 Balance -190 -450 Weight 61.235 kg 61.235 kg Intake: Blood Product 310 Rc As-1 Unit 310 [id number] Output: Urine 500 450 Other: Voiding Method Diaper Diaper - Labs CBC & Chem 7: 09/09/22 07:55 09/09/22 07:55 Labs: Abnormal Lab Results - Last 24 Hours (Table) 09/08/22 09/09/22 09/09/22 Range/Units 10:00 07:55 07:55 RBC 2.90 L (3.80-5.40) m/uL Hgb 9.3 L D (11.4-16.0) gm/dL Hct 29.5 L (34.0-46.0) % MCV 101.5 H (80.0-100.0) fL RDW 18.9 H (11.5-15.5) % Plt Count 102 L (150-450) k/uL Lymphocytes # 0.2 L (1.0-4.8) k/uL Sodium 151 H (137-145) mmol/L Potassium 3.4 L (3.5-5.1) mmol/L Chloride 113 H (98-107) mmol/L BUN 73 H (7-17) mg/dL Creatinine 3.00 H (0.52-1.04) mg/dL Glucose 129 H (74-99) mg/dL Calcium 8.1 L (8.4-10.2) mg/dL Iron 28 L (50-170) ug/dL TIBC 217 L (228-460) ug/dL Transferrin 155.0 L (204.0-354.0) mg/dL Microbiology - Last 24 Hours (Table) 09/08/22 02:09 Urine Culture - Preliminary Urine,Voided Gram Neg Bacilli 09/08/22 00:54 Blood Culture - Preliminary Blood No Growth after 24 hours
--- NOTE | 2022-09-09 17:07 | US ---
EXAMINATION TYPE: US venous doppler duplex LE DATE OF EXAM: 09/09/2022 4:35 PM COMPARISON: NONE CLINICAL HISTORY: clot. Evaluate for deep vein thrombosis SIDE PERFORMED: Bilateral TECHNIQUE: The lower extremity deep venous system is examined utilizing real time linear array sonog christian with graded compression, doppler sonography and color-flow sonography. VESSELS IMAGED: Common Femoral Vein Deep Femoral Vein Greater Saphenous Vein * Femoral Vein Popliteal Vein Small Saphenous Vein * Proximal Calf Veins (* superficial vessels) Right Leg: Negative for DVT Left Leg: Negative for DVT Bilateral popliteal veins are limited due to patient cooperation. Proximal is visualized and patent. IMPRESSION: No evidence of deep vein thrombosis in both legs.
--- NOTE | 2022-09-09 17:52 | P.PN ---
Subjective Progress Note Date: 09/09/22 Principal diagnosis: resp failure, on treatment for breast cancer In f/u today pt is not talking, she follows people with her eyes and will turn her head, she did follow instructions to deep breathe. Objective - Vital Signs Vital signs: Vital Signs Temp 97.6 F 09/09/22 08:00 Pulse 79 09/09/22 08:00 Resp 17 09/09/22 08:00 BP 140/71 09/09/22 08:00 Pulse Ox 93 L 09/09/22 08:00 FiO2 Intake & Output 09/08/22 09/09/22 09/09/22 18:59 06:59 18:59 Intake Total 310 Output Total 500 450 Balance -190 -450 Weight 61.235 kg Intake: Blood Product 310 Rc As-1 Unit 310 [id number] Output: Urine 500 450 Other: Voiding Method Diaper Diaper - Constitutional General appearance: Present: cooperative, no acute distress, thin - EENT Eyes: Present: anicteric sclerae, EOMI ENT: Present: hearing grossly normal - Respiratory Respiratory: bilateral: CTA - Cardiovascular Rhythm: regular Heart sounds: normal: S1, S2 Abnormal Heart Sounds: Absent: systolic murmur, diastolic murmur, rub, S3 Gallop, S4 Gallop, click, other - Peripheral edema leg Peripheral Edema: bilateral: None - Gastrointestinal General gastrointestinal: Present: normal bowel sounds, soft - Psychiatric Psychiatric Comment(s): alert, non-verbal, follows some commands - Labs CBC & Chem 7: 09/09/22 07:55 09/09/22 07:55 Labs: Abnormal Lab Results - Last 24 Hours (Table) 09/08/22 09/08/22 09/09/22 Range/Units 10:00 13:44 07:55 RBC 2.90 L (3.80-5.40) m/uL Hgb 9.3 L D (11.4-16.0) gm/dL Hct 29.5 L (34.0-46.0) % MCV 101.5 H (80.0-100.0) fL RDW 18.9 H (11.5-15.5) % Plt Count 102 L (150-450) k/uL Lymphocytes # 0.2 L (1.0-4.8) k/uL Sodium (137-145) mmol/L Potassium (3.5-5.1) mmol/L Chloride (98-107) mmol/L BUN (7-17) mg/dL Creatinine (0.52-1.04) mg/dL Glucose (74-99) mg/dL Calcium (8.4-10.2) mg/dL Iron 28 L (50-170) ug/dL TIBC 217 L (228-460) ug/dL Transferrin 155.0 L (204.0-354.0) mg/dL Urine Appearance Cloudy H (Clear) Urine Protein Trace H (Negative) Urine Blood Moderate H (Negative) Ur Leukocyte Esterase Large H (Negative) Urine RBC 14 H (0-5) /hpf Urine WBC 23 H (0-5) /hpf Urine Bacteria Occasional H (None) /hpf Hyaline Casts 8 H (0-2) /lpf Urine Mucus Rare H (None) /hpf Urine Yeast (Budding) Few H (None) /hpf 09/09/22 Range/Units 07:55 RBC (3.80-5.40) m/uL Hgb (11.4-16.0) gm/dL Hct (34.0-46.0) % MCV (80.0-100.0) fL RDW (11.5-15.5) % Plt Count (150-450) k/uL Lymphocytes # (1.0-4.8) k/uL Sodium 151 H (137-145) mmol/L Potassium 3.4 L (3.5-5.1) mmol/L Chloride 113 H (98-107) mmol/L BUN 73 H (7-17) mg/dL Creatinine 3.00 H (0.52-1.04) mg/dL Glucose 129 H (74-99) mg/dL Calcium 8.1 L (8.4-10.2) mg/dL Iron (50-170) ug/dL TIBC (228-460) ug/dL Transferrin (204.0-354.0) mg/dL Urine Appearance (Clear) Urine Protein (Negative) Urine Blood (Negative) Ur Leukocyte Esterase (Negative) Urine RBC (0-5) /hpf Urine WBC (0-5) /hpf Urine Bacteria (None) /hpf Hyaline Casts (0-2) /lpf Urine Mucus (None) /hpf Urine Yeast (Budding) (None) /hpf Microbiology - Last 24 Hours (Table) 09/08/22 00:54 Blood Culture - Preliminary Blood No Growth after 24 hours 09/08/22 02:09 Urine Culture - Preliminary Urine,Voided - Imaging and Cardiology CT Scan - head: report reviewed Venous US: report reviewed Assessment and Plan (1) Breast cancer, stage 4 Current Visit: Yes Status: Chronic Priority: Medium Code(s): C50.919 - MALIGNANT NEOPLASM OF UNSP SITE OF UNSPECIFIED FEMALE BREAST SNOMED Code(s): 691945263 Plan: Pt mental status is slowly improving per family. Pt breast cancer has been well controlled on oral therapy-her left breast/axilla are look decent. Holding ibrance for the moment until pt recovers from her current situation. Ca15.[address] brain report reviewed. There is mention of a small area of hypoattenuation in the occipital area-not a finding that would produce the type of AMS pt is currently exhibiting-but, f/u with brain MRI once pt is feeling better may be warranted.
[2022-09-09] MEDS: LATANOPROST 0.005% OPHTH DROPS 2.5 ML BTL BOTH EYES SCH (20:56)
[2022-09-10] MEDS: FOLIC ACID 1 MG TAB PO SCH (08:15)
[2022-09-10] MEDS: amLODIPine 5 MG TAB PO SCH (08:15)
[2022-09-10] MEDS: METOPROLOL TARTRATE 25 MG TAB PO SCH ×2 (08:15→16:13)
[2022-09-10] MEDS: FUROSEMIDE 10 MG/ML 4 ML VIAL IV SCH (08:17)
[2022-09-10] MEDS: PIPERACILLIN-TAZOBACTAM 3.375 GM in SODIUM CHLORIDE 0.9% 100 ML IVPB SCH ×2 (08:17→21:21)
--- NOTE | 2022-09-10 08:24 | NM ---
EXAMINATION TYPE: NM pul perfusion DATE OF EXAM: 09/10/2022 COMPARISON: Radiograph correlation 09/09/2022 HISTORY: 87-year-old female nonverbal, shortness of breath, possible pulmonary embolus. TECHNIQUE: Unable to complete the ventilation portion of the exam due to patient's inability to follo w instructions. Following administration of 4.7 mCi Tc 99m MAA. Images obtained post injection. FINDINGS: A few scattered small to moderate sized perfusion defects are noted. On the right, at the apex on the left, posterior aspect of the upper, mid, and lower lung. These appear more moderate in size on the left. IMPRESSION: Intermediate probability for pulmonary embolus by PIOPED criteria.
[2022-09-10] MEDS: SODIUM FERRIC GLUCONAT-SUCROSE 125 MG in SODIUM CHLORIDE 0.9% 100 ML IVPB SCH (08:51)
--- NOTE | 2022-09-10 10:05 | P.PN ---
Subjective Patient is seen in follow-up for acute kidney injury on chronic kidney disease. Renal function stable. Sodium level 151 yesterday. Hemodynamically stable. Nonoliguric. On IV Lasix. Patient is not a reliable historian. Vital signs are stable. General: No acute distress. HEENT: Head exam is unremarkable. On nasal cannula. LUNGS: Breath sounds decreased. HEART: Rate and Rhythm are regular. ABDOMEN: Soft, no distention. EXTREMITITES: Trace edema. Objective - Vital Signs Vital signs: Vital Signs Temp 97.6 F 09/10/22 08:23 Pulse 85 09/10/22 08:23 Resp 17 09/10/22 08:23 BP 111/60 09/10/22 08:23 Pulse Ox 93 L 09/10/22 08:23 FiO2 Intake & Output 09/09/22 09/10/22 09/10/22 18:59 06:59 18:59 Output Total 1250 Balance -1250 Weight 61.235 kg Output: Urine 1250 Other: Voiding Method Diaper Diaper # Bowel Movements 1 - Labs CBC & Chem 7: 09/09/22 07:55 09/09/22 07:55 Labs: Microbiology - Last 24 Hours (Table) 09/08/22 00:54 Blood Culture - Preliminary Blood No Growth after 48 hours 09/08/22 02:09 Urine Culture - Preliminary Urine,Voided Gram Neg Bacilli Assessment and Plan Plan: Assessment: 1. Acute kidney injury secondary to ATN secondary to cardiorenal syndrome and anemia. Creatinine 3.12 on admission - stable at 3.0 yesterday. No hydronephrosis noted on kidney ultrasound. 2. Chronic kidney disease stage IV with baseline creatinine in the range of 1.72 secondary to nephrosclerosis. 3. Acute blood loss anemia status post blood transfusion. No active bleeding. Patient is noted to be pancytopenic possibly from underlying malignancy/chemo. Iron deficiency noted. 4. Metastatic breast cancer. Oncology following. 5. Acute hypoxic respiratory failure. 6. Volume overload. Improving with diuresis. 7. Hypokalemia from diuresis and poor intake. Replaced. 8. Hypernatremia from lack of oral water intake. 9. Gram-negative UTI. On antibiotics. Plan: Maintain IV Lasix. Maintain IV iron. Follow-up cultures. Avoid nephrotoxins. Continue D5W at 75 mL an hour. Follow-up morning labs. Follow-up echocardiogram. Prognosis guarded.
[2022-09-10 10:54] LABS: Anisocytosis Slight; HCT 26.1 % (34.0-46.0); HGB 8.1 gm/dL (11.4-16.0); Hypochromasia Marked; MCH 32.4 pg (25.0-35.0); MCHC 31.1 g/dL (31.0-37.0); MCV 104.1 fL (80.0-100.0); Macrocytosis Marked; Mean Platelet Volume 10.9; Poikilocytosis Marked; RBC 2.51 m/uL (3.80-5.40); RDW 19.1 % (11.5-15.5); WBC 3.5 k/uL (3.8-10.6)
[2022-09-10 10:59] LABS: Magnesium 1.8 mg/dL (1.6-2.3)
[2022-09-10 11:21] LABS: Potassium 2.6 mmol/L (3.5-5.1)
[2022-09-10] MEDS: POTASSIUM CHLORIDE 20 MEQ in WATER FOR INJECTION 1 100ML.BAG IVPB SCH ×4 (12:29→18:15)
[2022-09-10] MEDS: D5W WITH KCL 20 MEQ/L 1,000 ML IV SCH (12:50)
[2022-09-10 13:08] LABS: Platelet Count 84 k/uL (150-450)
--- NOTE | 2022-09-10 15:29 | P.PN ---
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 Upon arrival to the emergency department patient minimally responsive and nonverbal. She required 15 L nonrebreather mask maintaining saturations in the 90s. CBC revealing pancytopenia with WBC count of 3.6, hemoglobin of 6.5, and platelet count of 134. D-dimer was elevated at 18.20. CMP revealing hyperkalemia with potassium of 3.2 and an acute kidney injury with BUN of 79, creatinine 3.12, and GFR of 13 with baseline creatinine of 1.9. Troponin elevated at 0.723. ProBNP 45,200. Covid PCR, influenza A, influenza B were negative. Urinalysis positive for infection. Chest x-ray revealing moderately severe pulmonary edema with cardiomegaly and pleural fluid possibly resulting from combined congestive heart failure and RDS. Patient admitted under our services with consultations to pulmonology, cardiology, nephrology, oncology, and palliative care. Troponins were trended and remianed flat. Imaging: Renal/bladder ultrasound-cholelithiasis with gallbladder polyp, repeat in 6 months, no hydronephrosis CT head: Hypoattenuation in the right occipital lobe which may represent chronic white matter changes. Remote injuries to the right frontal temporal junction and bilateral basal ganglia, nonspecific white matter changes. Bilateral venous Doppler-no evidence of DVT in both legs Pulmonary perfusion scan-intermediate probability of PE Patient seen and examined at bedside. Her eyes are open. She does respond yes to the sun for multiple questions. Case discussed with son in detail. We discussed that she has negative bilateral lower extremity venous Dopplers, she has a blood test that is consistent with probable blood clot, and she has a nuclear medicine scan showing intermediate probability of a blood clot. Son adamantly does not want anticoagulation and she has been on Coumadin in the past and did not tolerate this resulting in what sounds like a GI bleed. I discussed with him that if she has a pulmonary embolism that is left untreated this could lead to . He is focused on preserving quality of life for his mother. He does not want her to have the possibility of the abdominal pain she had on Coumadin or continued bleeding. He understands the risks versus benefit at this time would not want to be on anticoagulation. We discussed that if her echocardiogram should show pulmonary hypertension this may be more consistent with a definitive pulmonary embolism and at that time he would reconsider his decision. General: Ill-appearing, no distress, appears at stated age Derm: warm, dry Head: atraumatic, normocephalic, symmetric Eyes: EOMI, no lid lag, anicteric sclera Mouth: no lip lesion, laceration upper right lip with bleeding currently appears to be forming a scab. Patient will not let me touch or examine her mouth or lips Cardiovascular: S1S2 regular, no murmur, positive posterior tibial pulse bilateral, Lungs: Course of breath sounds bilateral, no rhonchi, no rales , no accessory muscle use Abdominal: soft, nontender to palpation, no guarding, no appreciable organomegaly Ext: no gross muscle atrophy, no edema, no contractures Neuro: Extraocular motion intact, pupils equal bilaterally, difficult to understand Psych: Alert, oriented to self, appears anxious Assessment/plan: Acute hypoxic respiratory failure, likely multifactorial in the setting of acute congestive heart failure and elevated d-dimer Type II non-STEMI related to heart failure Elevated d-dimer Acute metabolic encephalopathy Intermedicate probabilitiy pulmonary embolism- son refusing anticoagulation -Clinically doubt pneumonia with patient's pro-calcitonin being less than 2 and rapid improvement in oxygen requirements with IV Lasix. We'll continue with Zosyn at this time. Await repeat procalcitonin -Patient has developed hypernatremia likely secondary to decreased oral intake. We'll decrease Lasix to once daily -Strict I's and O's, daily weights -Cardiology recommendations: Continue with current care, will follow as needed -Pulmonary has signed off -Await echocardiogram Acute kidney injury on chronic kidney disease stage III Hypernatremia, resolved -Nephrology recommendations: Continue with Lasix, start D5W at 75 an hour - avoid nephrotoxic agents Dysphagia - speech recommnedations - still not safe for oral intake Pancytopenia Stage IV breast cancer on Ibrance Iron deficiency anemia -IV iron 2 -Improving -Status post 1 unit packed red blood cells -Continue to follow CBC -Oncology recommendations Possible UTI -Culture with gram-negative bacilli -Continue Zosyn and await for culture to finalize Hypokalemia -Replace and recheck in a.m. Chronic: Prior CVA with residula aphasia and left sided defecits Permanent atrial fibrillation not on anticoagulation secondary to severe GI bleeding DVT prophylaxis: SCDs Discussed with: Patient, nursing, speech, son Anticipated discharge: pending clinical course Anticipated discharge place: return home A total of 32 minutes was spent on the care of this complex patient more than 50% of the time was spent in counseling and care coordination. Objective - Vital Signs Vital signs: Vital Signs Temp 97.5 F L 09/10/22 12:00 Pulse 73 09/10/22 12:00 Resp 18 09/10/22 12:00 BP 141/73 09/10/22 12:00 Pulse Ox 93 L 09/10/22 12:00 FiO2 Intake & Output 09/09/22 09/10/22 09/10/22 18:59 06:59 18:59 Output Total 1250 600 Balance -1250 -600 Weight 61.235 kg Output: Urine 1250 600 Other: Voiding Method Diaper Diaper # Bowel Movements 1 - Labs CBC & Chem 7: 09/10/22 10:12 09/10/22 10:12 Labs: Abnormal Lab Results - Last 24 Hours (Table) 09/10/22 09/10/22 Range/Units 10:12 10:12 WBC 3.5 L (3.8-10.6) k/uL RBC 2.51 L (3.80-5.40) m/uL Hgb 8.1 L (11.4-16.0) gm/dL Hct 26.1 L (34.0-46.0) % MCV 104.1 H (80.0-100.0) fL RDW 19.1 H (11.5-15.5) % Plt Count 84 L (150-450) k/uL Macrocytosis Marked A Potassium 2.6 L* (3.5-5.1) mmol/L Chloride 110 H (98-107) mmol/L Carbon Dioxide 20 L (22-30) mmol/L BUN 66 H (7-17) mg/dL Creatinine 2.69 H (0.52-1.04) mg/dL Glucose 131 H (74-99) mg/dL Calcium 8.0 L (8.4-10.2) mg/dL Microbiology - Last 24 Hours (Table) 09/08/22 02:09 Urine Culture - Preliminary Urine,Voided Pseudomonas aeruginosa 09/08/22 00:54 Blood Culture - Preliminary Blood No Growth after 48 hours
--- NOTE | 2022-09-10 15:31 | CA ---
Transthoracic Echo Report Name: Kajal Kirby Age: 87 Gender: F : 1935 Exam Date: 09/09/2022 09:49 Exam Location: [facility] Ht (in): 66 Wt (lb): 135 Ordering Physician: Yodit Newell Attending/Referring Phys: Coding Director Megan Terrell RDCS Procedure CPT: Indications: sob Cardiac Hx: Technical Quality: Fair Contrast 1: Total Dose (mL): Contrast 2: Total Dose (mL): MEASUREMENTS (Male / Female) Normal Values 2D ECHO LV Diastolic Diameter PLAX 3.3 cm 4.2 - 5.9 / 3.9 - 5.3 cm LV Systolic Diameter PLAX 3.1 cm IVS Diastolic Thickness 1.6 cm 0.6 - 1.0 / 0.6 - 0.9 cm LVPW Diastolic Thickness 1.4 cm 0.6 - 1.0 / 0.6 - 0.9 cm LV Relative Wall Thickness 0.9 RV Internal Dim ED PLAX 2.5 cm LVOT Diameter 2.2 cm LA Systolic Diameter LX 3.5 cm 3.0 - 4.0 / 2.7 - 3.8 cm LA Volume 61.5 cm??? 18 - 58 / 22 - 52 cm??? M-MODE Aortic Root Diameter MM 3.4 cm MV E Point Septal Separation 0.3 cm AV Cusp Separation MM 1.6 cm DOPPLER AV Peak Velocity 194.1 cm/s AV Peak Gradient 15.1 mmHg AV Mean Velocity 121.6 cm/s AV Mean Gradient 7.0 mmHg AV Velocity Time Integral 33.8 cm LVOT Peak Velocity 169.0 cm/s LVOT Peak Gradient 11.4 mmHg AV Area Cont Eq pk 3.5 cm??? MV Area PHT 3.9 cm??? MV Deceleration Time 174.3 ms MV E' Velocity 2.9 cm/s TR Peak Velocity 307.5 cm/s TR Peak Gradient 37.8 mmHg Right Ventricular Systolic Press 41.0 mmHg FINDINGS Left Ventricle Left ventricular ejection fraction is estimated at 50-55%. Severely increased left ventricular wall thickness. Right Ventricle Normal right ventricular size and function. Mild pulmonary hypertension. Right Atrium Normal right atrial size. Left Atrium Mildly increased left atrial volume. Mildly increased left atrial area. Mitral Valve Mitral annular calcification. Mild mitral regurgitation. Aortic Valve Mild aortic stenosis with a peak gradient of 15 mmHg and a mean gradient of 7 mmHg. Tricuspid Valve Pulmonic Valve Pulmonic valve not well visualized. Pericardium Normal pericardium. Aorta Normal size aortic root and proximal ascending aorta. CONCLUSIONS Near normal LV systolic function LVH Previewed by: Dr. Heath Orlando MD (Electronically Signed) Final Date: 10 September 2022 15:30
--- NOTE | 2022-09-10 16:04 | P.CONS ---
History of Present Illness - Reason for Consult Consult date: 09/10/22 metastatic breast cancer, multiple co-morbidities Requesting physician: Finn Collier - Chief Complaint AMS - History of Present Illness The patient is an 87-year-old female with a PMH of stage IV breast cancer, CVA with residual left-sided weakness, dementia, hypertension, and hyperlipidemia who was brought into the emergency room, on 09/08/22, by her son due to shortness of breath and worsening mental status. The history was obtained from the son at the bedside due to patient's altered mentation. Son reports that over the past 2 days, the patient's been increasingly unresponsive and appeared to have difficulty breathing. She is currently undergoing chemotherapy and was scheduled to start a new regimen earlier today. The patient is reportedly bedbound and has had a gradual decline in her functional capacity over the past several years after suffering from a large CVA in 2012. Upon arrival of EMS staff, the patient's SpO2 was noted to be 75% on room air. In the emergency room, chest x-ray revealed severe pulmonary edema with cardiomegaly and pleural fluid with RDS right greater than left. EKG reveals sinus rhythm with at 67 bpm with left axis deviation and left bundle branch block. Laboratory evaluation was remarkable for pancytopenia with hemoglobin 6.5 (previously 7.1 on 08/21), troponin 0.7-3, proBNP 45,200,, with UA consistent with UTI. Urine culture positive for pseudomonas. Cardiology an pulmonary services have been following and treating the patient for acute hypoxemic respiratory failure, likely multifactorial, in part related to fluid overload/CHF, plus possible underlying pneumonia.The patient was diuresed and placed on Zoysn. Nephrology has also been consulted. The patient has acute on chronic kidney disease (stage IV) with a baseline creatinine in the range of 1.7-2 secondary to nephrosclerosis. Creatinine on admission was 3.12. The patient also has had negative bilateral lower extremity venous Dopplers. However, her elevated D-dimer is consistent with probable blood clot, and her VQ scan shows intermediate probability of a blood clot. Her son adamantly does not want anticoagulation. She has been on Coumadin in the past for A fib, and did not tolerate this resulting in what sounds like a GI bleed. It was discussed with him that if she has a pulmonary embolism that is left untreated this could lead to . He understands the risks versus benefit at this time would not want to be on anticoagulation. Review of Systems ROS unobtainable: due to mental status Past Medical History Past Medical History: Cancer, CVA/TIA Additional Past Medical History / Comment(s): breat ca dx 2017; L breast masectomy with lymph node removal, stroke back in 2013 with left side paralysis History of Any Multi-Drug Resistant Organisms: None Reported Additional Past Surgical History / Comment(s): catarat surgery Past Anesthesia/Blood Transfusion Reactions: No Reported Reaction Past Psychological History: No Psychological Hx Reported Smoking Status: Former smoker Past Drug Use History: None Reported - Past Family History Mother Family Medical History: Cancer Medications and Allergies Home Medications Medication Instructions Recorded Confirmed Type Acetaminophen Tab [Tylenol] 650 mg PO Q4H PRN 09/08/22 09/08/22 History Albuterol Sulfate [Proventil Hfa] 2 puff INHALATION RT-Q4H PRN 09/08/22 09/08/22 History Anastrozole [Arimidex] 1 mg PO DAILY 09/08/22 09/08/22 History Docusate [Colace] 100 mg PO DAILY PRN 09/08/22 09/08/22 History Famotidine [Pepcid] 20 mg PO BID PRN 09/08/22 09/08/22 History Folic Acid 1 mg PO DAILY 09/08/22 09/08/22 History Furosemide [Lasix] 40 mg PO BID 09/08/22 09/08/22 History L.acidoph,Paracasei, B.lactis 1 cap PO DAILY 09/08/22 09/08/22 History [Probiotic] Latanoprost [Latanoprost 0.005%] 1 drop BOTH EYES HS 09/08/22 09/08/22 History Loratadine [Claritin] 10 mg PO DAILY 09/08/22 09/08/22 History Metoprolol Tartrate [Lopressor] 25 mg PO BID 09/08/22 09/08/22 History Palbociclib [Ibrance] 125 mg PO DIRECTED 09/08/22 09/08/22 History Potassium Chloride 20 meq PO DAILY 09/08/22 09/08/22 History Sennosides [Senokot] 8.6 mg PO DAILY PRN 09/08/22 09/08/22 History amLODIPine [Norvasc] 5 mg PO DAILY 09/08/22 09/08/22 History diphenhydrAMINE HCL [Benadryl] 25 mg PO DAILY PRN 09/08/22 09/08/22 History Allergies Allergy/AdvReac Type Severity Reaction Status Date / Time codeine Allergy Swelling Verified 09/08/22 08:50 Sulfa (Sulfonamide Allergy Swelling Verified 09/08/22 08:50 Antibiotics) Physical Exam Vitals: Vital Signs Temp Pulse Resp BP Pulse Ox 09/10/22 12:00 97.5 F L 73 18 141/73 93 L 09/10/22 08:23 97.6 F 85 17 111/60 93 L 09/10/22 03:45 97.9 F 86 18 132/68 92 L 09/09/22 23:08 97.9 F 90 18 128/74 94 L 09/09/22 20:58 99.1 F 88 18 135/64 92 L 09/09/22 16:00 98 F 85 19 127/78 95 Intake and Output 09/10/22 09/10/22 09/10/22 06:59 14:59 22:59 Output Total 300 600 Balance -300 -600 Output: Urine 300 600 Other: Voiding Method Diaper Diaper # Bowel Movements 1 General: Well developed, appears stated age. Chronically ill appearing HEENT: Head is atraumatic, normocephalic. Sclerae are clear. Pupils equal, round and reactive to light bilaterally. Mucus membranes moist. dried blood on lips. CV: Heart regular in rate and rhythm positive S1 and S2. Lungs: Scattered rhonchi through out. Tachypneic and slightly labored respirati ons. on 3L NC Abdomen/GI: Soft.No guarding, rigidity, or abdominal tenderness. Musculoskeletal/ Extremities: Left sided weakness, No gross atrophy. no contractures Vascular: Radial pulses equal. 2/4. ? peripheral edema Skin: Warm and dry, No rash Neurologic: Awake, alert and nods head to questions. Does not speak. Psychiatric: Unable to assess Results CBC & Chem 7: 09/10/22 10:12 09/10/22 10:12 Labs: Abnormal Lab Results - Last 24 Hours (Table) 09/10/22 09/10/22 Range/Units 10:12 10:12 WBC 3.5 L (3.8-10.6) k/uL RBC 2.51 L (3.80-5.40) m/uL Hgb 8.1 L (11.4-16.0) gm/dL Hct 26.1 L (34.0-46.0) % MCV 104.1 H (80.0-100.0) fL RDW 19.1 H (11.5-15.5) % Plt Count 84 L (150-450) k/uL Macrocytosis Marked A Potassium 2.6 L* (3.5-5.1) mmol/L Chloride 110 H (98-107) mmol/L Carbon Dioxide 20 L (22-30) mmol/L BUN 66 H (7-17) mg/dL Creatinine 2.69 H (0.52-1.04) mg/dL Glucose 131 H (74-99) mg/dL Calcium 8.0 L (8.4-10.2) mg/dL Microbiology - Last 24 Hours (Table) 09/08/22 02:09 Urine Culture - Preliminary Urine,Voided Pseudomonas aeruginosa 09/08/22 00:54 Blood Culture - Preliminary Blood No Growth after 48 hours Chest x-ray: report reviewed CT Scan - head: report reviewed US - abdomen: report reviewed Venous US: report reviewed Assessment and Plan Assessment: Social * Occupation - taco maker * Marital status - , passed in 2019 * Children/grandchildren - 5 adult children, son-Donta METZ * Residence - House * Who do you reside with - Donta Connor * ETOH - No * Tobacco - No * Illicit drugs - No Spiritual/Cultural * A spiritual person - Yes * Jainism - Confucianist * Belong to a particular yazidism No- * Beliefs a source of comfort and strength - Yes * Rastafari or cultural practices restrictions - None * EOL considerations/rituals - None Functional Assessment * Able to walk independently - No, essentially bedbound * Assistive devices - wheelchair * Able to use the bathroom independently - No * Continent - No, wears briefs * Require assistance bathing- yes * Able to feed self - yes * Who prepares meals - son, meals on wheels * How many meals a day eaten - 2 * Able to clean house/do laundry - No * Transportation - None * Able to shop - No * Who manages medications -Son * Who manages finances - Son Psychological/Emotional * Dementia present - Yes * Insight and judgment - Not intace * Depression - AZAR * Suicidal thoughts - AZAR * Good support system - Yes, family * Patients goals - Improve functional status * Frequent hospitalizations - No * Desire to keep coming back to the hospital for treatment - Yes Symptoms * Pain - 0/10 * Fatigue - Lethargic and weak * SOB - Yes, continue Zithromax and Zosyn * Insomnia - No * N/V - No * Anxiety - No * Depression - No * Confusion - Yes * Agitation - No * Hallucinations - No * Appetite/weight loss - Recent loss of appetite * Dysphagia - Yes, failed swallow eval, NPO * Constipation - No, LBM last night * Incontinence - Yes, wears briefs * Itch - No Plan: Summary/Goals - The patient is lying in bed with her eyes open. She can track with her eyes and nod when asked questions. She will not speak. Her son is at the bedside and provides all information. Palliative care philosophies and services explained to the patient's son. Education provided regarding the patient's multiple co-morbidities and poor prognosis. He believes she has a good quality of life and would like to continue with aggressive treatment at this time. Concern was expressed about the patient's nutritional status and possible need for artificial feeding. He stated he would be ok with a dobhoff for a short time, but is not sure he would want a peg tube. Recommendations - Son agreed to OP palliative care at this time Advanced Directives - No Code Status - DNR Thank you for this consultation Keren Batista [facility] Palliative Care [facility] [address] Email: [email or web address] Time with Patient: Greater than 30
[2022-09-10] MEDS: LATANOPROST 0.005% OPHTH DROPS 2.5 ML BTL BOTH EYES SCH (21:20)
[2022-09-11] MEDS: D5W WITH KCL 20 MEQ/L 1,000 ML IV SCH (01:37)
[2022-09-11] MEDS: FUROSEMIDE 10 MG/ML 4 ML VIAL IV SCH ×2 (10:12→20:52)
[2022-09-11] MEDS: PIPERACILLIN-TAZOBACTAM 3.375 GM in SODIUM CHLORIDE 0.9% 100 ML IVPB SCH ×2 (10:13→20:52)
[2022-09-11] MEDS: SODIUM FERRIC GLUCONAT-SUCROSE 125 MG in SODIUM CHLORIDE 0.9% 100 ML IVPB SCH (10:13)
--- NOTE | 2022-09-11 10:50 | P.PN ---
Subjective Patient is seen in follow-up for acute kidney injury on chronic kidney disease. Renal function better as of yesterday. Sodium level down to 144 yesterday. Receiving D5W. Hemodynamically stable. Nonoliguric. On IV Lasix. Patient is not a reliable historian. Vital signs are stable. General: No acute distress. HEENT: Head exam is unremarkable. On nasal cannula. LUNGS: Breath sounds decreased. HEART: Rate and Rhythm are regular. ABDOMEN: Soft, no distention. EXTREMITITES: Trace edema. Objective - Vital Signs Vital signs: Vital Signs Temp 99 F 09/11/22 03:11 Pulse 92 09/11/22 03:11 Resp 16 09/11/22 03:11 BP 106/56 09/11/22 03:11 Pulse Ox 93 L 09/11/22 07:26 FiO2 Intake & Output 09/10/22 09/11/22 09/11/22 18:59 06:59 18:59 Intake Total 0 Output Total 600 750 Balance -600 -750 0 Intake: Oral 0 Output: Urine 600 750 Uretheral (Field) 500 Other: Voiding Method Diaper Indwelling Catheter - Labs CBC & Chem 7: 09/10/22 10:12 09/10/22 10:12 Labs: Abnormal Lab Results - Last 24 Hours (Table) 09/10/22 09/10/22 Range/Units 10:12 10:12 WBC 3.5 L (3.8-10.6) k/uL RBC 2.51 L (3.80-5.40) m/uL Hgb 8.1 L (11.4-16.0) gm/dL Hct 26.1 L (34.0-46.0) % MCV 104.1 H (80.0-100.0) fL RDW 19.1 H (11.5-15.5) % Plt Count 84 L (150-450) k/uL Macrocytosis Marked A Potassium 2.6 L* (3.5-5.1) mmol/L Chloride 110 H (98-107) mmol/L Carbon Dioxide 20 L (22-30) mmol/L BUN 66 H (7-17) mg/dL Creatinine 2.69 H (0.52-1.04) mg/dL Glucose 131 H (74-99) mg/dL Calcium 8.0 L (8.4-10.2) mg/dL Microbiology - Last 24 Hours (Table) 09/08/22 02:09 Urine Culture - Final Urine,Voided Pseudomonas aeruginosa 09/08/22 00:54 Blood Culture - Preliminary Blood No Growth after 72 hours Assessment and Plan Plan: Assessment: 1. Acute kidney injury secondary to ATN secondary to cardiorenal syndrome and anemia. Creatinine 3.12 on admission - 2.69 yesterday. No hydronephrosis noted on kidney ultrasound. 2. Chronic kidney disease stage IV with baseline creatinine in the range of 1.7-2 secondary to nephrosclerosis. 3. Acute blood loss anemia status post blood transfusion. No active bleeding. Patient is noted to be pancytopenic possibly from underlying malignancy/chemo. Iron deficiency noted. 4. Metastatic breast cancer. Oncology following. 5. Acute hypoxic respiratory failure. 6. Volume overload. Improving with diuresis. 7. Hypokalemia from diuresis and poor intake. Replaced. 8. Hypernatremia from lack of oral water intake. Improving. 9. Pseudomonas UTI. On antibiotics. Plan: Maintain IV Lasix. Maintain IV iron. Follow-up cultures. Avoid nephrotoxins. Continue D5W. Follow-up morning labs. Preserved EF noted on echo. Prognosis guarded.
[2022-09-11 12:10] LABS: Anisocytosis Slight; HCT 27.4 % (34.0-46.0); HGB 9.1 gm/dL (11.4-16.0); Hypochromasia Marked; MCH 33.6 pg (25.0-35.0); MCHC 33.1 g/dL (31.0-37.0); MCV 101.5 fL (80.0-100.0); Macrocytosis Moderate; Mean Platelet Volume 10.7; Poikilocytosis Marked; RDW 18.2 % (11.5-15.5); WBC 4.4 k/uL (3.8-10.6)
[2022-09-11 12:12] LABS: Platelet Count 87 k/uL (150-450)
[2022-09-11 12:20] LABS: Albumin 2.5 g/dL (3.5-5.0); Calcium 8.3 mg/dL (8.4-10.2); Magnesium 1.7 mg/dL (1.6-2.3); Potassium 3.5 mmol/L (3.5-5.1); Total Bilirubin 0.8 mg/dL (0.2-1.3); Total Protein 5.2 g/dL (6.3-8.2)
[2022-09-11] MEDS: METOPROLOL TARTRATE 25 MG TAB PO SCH (12:25)
[2022-09-11] MEDS: FOLIC ACID 1 MG TAB PO SCH (12:25)
[2022-09-11] MEDS: amLODIPine 5 MG TAB PO SCH (12:25)
[2022-09-11] MEDS: ACETAMINOPHEN IV (For NPO) 1,000 MG in EMPTY BAG 1 BAG IVPB PRN ×2 (12:35→17:23)
--- NOTE | 2022-09-11 13:46 | XR ---
EXAMINATION TYPE: XR chest 1V portable DATE OF EXAM: 09/11/2022 COMPARISON: 09/09/2022 HISTORY: Shortness of breath TECHNIQUE: Single frontal view of the chest is obtained. FINDINGS: There is diffuse partially consolidative airspace opacity throughout both lungs essentiall y unchanged compared to previous. There is no pneumothorax. The osseous structures are osteopenic. IMPRESSION: No change in the diffuse bilateral lung infiltrates.
--- NOTE | 2022-09-11 13:59 | P.PN ---
Subjective Progress Note Date: 09/11/22 (delayed charting seen at 1130) Patient is an 87-year-old female with stage IV metastatic breast cancer currently on Ibrance, atrial fibrillation not on anticoagulation, CVA with left- sided residual deficits and aphasia, hypertension, hyperlipidemia, function quadpralgia from prior CVA, and dementia who presented to the emergency department secondary to worsening mentation. Upon arrival to the emergency department patient minimally responsive and nonverbal. She required 15 L nonrebreather mask maintaining saturations in the 90s. CBC revealing pancytopenia with WBC count of 3.6, hemoglobin of 6.5, and platelet count of 134. D-dimer was elevated at 18.20. CMP revealing hyperkalemia with potassium of 3.2 and an acute kidney injury with BUN of 79, creatinine 3.12, and GFR of 13 with baseline creatinine of 1.9. Troponin elevated at 0.723. ProBNP 45,200. Covid PCR, influenza A, influenza B were negative. Urinalysis positive for infection. Chest x-ray revealing moderately severe pulmonary edema with cardiomegaly and pleural fluid possibly resulting from combined congestive heart failure and RDS. Patient admitted under our services with consultations to pulmonology, cardiology, nephrology, oncology, and palliative care. Troponins were trended and remianed flat. Cardiology felt that she had fluid and heart failure. Echocardiogram was obtained which showed preserved ejection fraction with significant LVH and pulmonary HTN. Diuresis was continued. She became hypernatremic initiate decreased oral intake. She was started on D5W. She developed significant hypokalemia which required aggressive potassium replacement. She was seen by speech therapy and was unable to tolerate any safest oral intake. She had 2 days where her respiratory status improved, however the BenzaClin on 09/11. Due to her significantly elevated d-dimer on admission she underwent bilateral lower 70 venous Dopplers are negative, VQ scan showed intermediate probability however this was felt likely to be secondary to her CHF exacerbation and she had no RV strain on echo. Imaging: Renal/bladder ultrasound-cholelithiasis with gallbladder polyp, repeat in 6 months, no hydronephrosis CT head: Hypoattenuation in the right occipital lobe which may represent chronic white matter changes. Remote injuries to the right frontal temporal junction and bilateral basal ganglia, nonspecific white matter changes. Bilateral venous Doppler-no evidence of DVT in both legs Pulmonary perfusion scan-intermediate probability of PE Repeat CXR- Unchanged bilaterael infiltrate Patient seen and examined at bedside with son present at bedside. She is less awake and alert today than yesterday. She does nod her head appropriately to the son's questioning. He states that she indicated she was having pain as well as some constipation. We discussed that she is doing significantly worse than yesterday and I'm concerned about her respiratory status. We discussed the need for repeat chest x-ray. I discussed with son that I am worried about her current status and then it is concerning that she is working harder to breathe today than yesterday. We discussed that ideally she would benefit from antral nutrition, however given her significant oral bleeding yesterday and her increased work of breathing concerning an NG tube at this time is probably not the safest option. General: Ill-appearing, no distress, appears at stated age Derm: warm, dry Head: atraumatic, normocephalic, symmetric Eyes: EOMI, no lid lag, anicteric sclera Mouth: no lip lesion, skin right upper lip. Patient will not let me touch or examine her mouth or lips Cardiovascular: S1S2 tachycardia and regular, no murmur, positive posterior tibial pulse bilateral, Lungs: Course of breath sounds bilateral, no rhonchi, no rales , no accessory muscle use Abdominal: soft, nontender to palpation, no guarding, no appreciable organomegaly Ext: no gross muscle atrophy, no edema, no contractures Neuro: Extraocular motion intact, pupils equal bilaterally, difficult to understand Psych: Lethargic, oriented to self, flat affect Assessment/plan: Acute hypoxic respiratory failure, likely multifactorial Type II non-STEMI related to heart failure Elevated d-dimer Acute metabolic encephalopathy Intermedicate probabilitiy pulmonary embolism- son refusing anticoagulation Acute exacerbation of diastolic congestive heart failure -Clinically doubt pneumonia with patient's pro-calcitonin being less than 2 and rapid improvement in oxygen requirements with IV Lasix. -Patient had worsening respiratory status on 09/11. We'll increase Lasix to twice daily. -Strict I's and O's, daily weights -Cardiology recommendations: Continue with current care, will follow as needed -Pulmonary has signed off - Patient is unable to tolerate any oral medications and therefore can be give her beta odessa Acute kidney injury on chronic kidney disease stage III Hypernatremia, resolved -Nephrology recommendations: Continue with Lasix and D5W - avoid nephrotoxic agents Dysphagia Severe protein calorie malnutrition - speech recommnedations - still not safe for oral intake. unsafe to insert NG tube at this point in time to the increased work of breathing in conjunction with significant oral bleeding that just resolved. Patient is also not cooperative which makes this difficult. Pancytopenia Stage IV breast cancer on Ibrance Iron deficiency anemia -IV iron 2 -Improving -Status post 1 unit packed red blood cells -Continue to follow CBC -Oncology recommendations Pseudomonas UTI -Zosyn D # 2 Hypokalemia, resolved -Replace and recheck in a.m. Chronic: Prior CVA with residual aphasia and left sided defecits Permanent atrial fibrillation not on anticoagulation secondary to severe GI bleeding Poor overall prognosis, Son has agreed to outpatient palliative care. DVT prophylaxis: SCDs Discussed with: Patient, nursing, son Anticipated discharge: pending clinical course Anticipated discharge place: return home A total of 32 minutes was spent on the care of this complex patient more than 50% of the time was spent in counseling and care coordination. Active Medications Generic Name Dose Route Start Last Admin Trade Name Dara PRN Reason Stop Dose Admin Amlodipine Besylate 5 mg 09/09/22 09:00 09/11/22 12:25 Amlodipine 5 Mg Tab PO Not Given DAILY KALINA Folic Acid 1 mg 09/09/22 09:00 09/11/22 12:25 Folic Acid 1 Mg Tab PO Not Given DAILY KALINA Furosemide 40 mg 09/11/22 21:00 Furosemide 10 Mg/Ml 4 Ml Vial IV BID KALINA Piperacillin Sod/Tazobactam 100 mls @ 25 mls/hr 09/08/22 21:00 09/11/22 10:13 Sod 3.375 gm/ Sodium Chloride IVPB 25 mls/hr Q12HR KALINA Administration Protocol Ferric Sodium Gluconate 125 mg 110 mls @ 100 mls/hr 09/09/22 12:00 09/11/22 10:13 / Sodium Chloride IVPB 09/12/22 12:01 100 mls/hr DAILY KALINA Administration Potassium Chloride/Dextrose 1,000 mls @ 50 mls/hr 09/10/22 11:30 09/11/22 01:37 D5%-Kcl 20 Meq/L Iv Solution IV 50 mls/hr .Q20H KALINA Administration Acetaminophen 1,000 mg/ IV 100 mls @ 400 mls/hr 09/11/22 11:33 09/11/22 12:35 Solution IVPB 09/12/22 06:01 400 mls/hr Q6HR PRN Administration Breakthrough Pain Latanoprost 1 drops 09/08/22 21:00 09/10/22 21:20 Latanoprost 0.005% Ophth Drops 2.5 Ml Btl BOTH EYES 1 drops HS KALINA Administration Metoprolol Tartrate 25 mg 09/08/22 21:00 09/11/22 12:25 Metoprolol Tartrate 25 Mg Tab PO Not Given BID KALINA Miscellaneous Information 1 each 09/08/22 02:26 Pneumonia Protocol Utilized 1 Each Misc PO ONCE PRN Per Protocol Naloxone HCl 0.2 mg 09/08/22 03:08 Naloxone 0.4 Mg/Ml 1 Ml Vial IV Q2M PRN Opioid Reversal Objective - Vital Signs Vital signs: Vital Signs Temp 98.5 F 09/11/22 12:00 Pulse 106 H 09/11/22 12:00 Resp 16 09/11/22 12:00 BP 109/62 09/11/22 12:00 Pulse Ox 95 09/11/22 12:00 FiO2 Intake & Output 09/10/22 09/11/22 09/11/22 18:59 06:59 18:59 Intake Total 0 Output Total 600 750 Balance -600 -750 0 Weight 61.235 kg Intake: Oral 0 Output: Urine 600 750 Uretheral (Field) 500 Other: Voiding Method Diaper Indwelling Catheter Indwelling Catheter - Labs CBC & Chem 7: 09/11/22 11:52 09/11/22 11:52 Labs: Abnormal Lab Results - Last 24 Hours (Table) 09/11/22 09/11/22 Range/Units 11:52 11:52 RBC 2.70 L (3.80-5.40) m/uL Hgb 9.1 L (11.4-16.0) gm/dL Hct 27.4 L (34.0-46.0) % MCV 101.5 H (80.0-100.0) fL RDW 18.2 H (11.5-15.5) % Plt Count 87 L (150-450) k/uL Chloride 108 H (98-107) mmol/L Carbon Dioxide 21 L (22-30) mmol/L BUN 59 H (7-17) mg/dL Creatinine 2.40 H (0.52-1.04) mg/dL Glucose 119 H (74-99) mg/dL Calcium 8.3 L (8.4-10.2) mg/dL Total Protein 5.2 L (6.3-8.2) g/dL Albumin 2.5 L (3.5-5.0) g/dL Microbiology - Last 24 Hours (Table) 09/08/22 02:09 Urine Culture - Final Urine,Voided Pseudomonas aeruginosa 09/08/22 00:54 Blood Culture - Preliminary Blood No Growth after 72 hours
--- NOTE | 2022-09-11 15:44 | P.PN ---
Subjective Progress Note Date: 09/11/22 Principal diagnosis: AMS The patient is an 87-year-old female with a PMH of stage IV breast cancer, CVA with residual left-sided weakness, dementia, hypertension, and hyperlipidemia who was brought into the emergency room, on 09/08/22, by her son due to shortness of breath and worsening mental status. The history was obtained from the son at the bedside due to patient's altered mentation. Son reports that over the past 2 days, the patient's been increasingly unresponsive and appeared to have difficulty breathing. She is currently undergoing chemotherapy and was scheduled to start a new regimen earlier today. The patient is reportedly bedbound and has had a gradual decline in her functional capacity over the past several years after suffering from a large CVA in 2012. Upon arrival of EMS staff, the patient's SpO2 was noted to be 75% on room air. In the emergency room, chest x-ray revealed severe pulmonary edema with cardiomegaly and pleural fluid with RDS right greater than left. EKG reveals sinus rhythm with at 67 bpm with left axis deviation and left bundle branch block. Laboratory evaluation was remarkable for pancytopenia with hemoglobin 6.5 (previously 7.1 on 08/21), troponin 0.7-3, proBNP 45,200,, with UA consistent with UTI. Urine culture positive for pseudomonas. Cardiology an pulmonary services have been following and treating the patient for acute hypoxemic respiratory failure, likely multifactorial, in part related to fluid overload/CHF, plus possible underlying pneumonia.The patient was diuresed and placed on Zoysn. Nephrology has also been consulted. The patient has acute on chronic kidney disease (stage IV) with a baseline creatinine in the range of 1.7-2 secondary to nephrosclerosis. Creatinine on admission was 3.12. The patient also has had negative bilateral lower extremity venous Dopplers. However, her elevated D-dimer is consistent with probable blood clot, and her VQ scan shows intermediate probability of a blood clot. Her son adamantly does not want anticoagulation. She has been on Coumadin in the past for A fib, and did not tolerate this resulting in what sounds like a GI bleed. It was discussed wi th him that if she has a pulmonary embolism that is left untreated this could lead to . He understands the risks versus benefit at this time would not want to be on anticoagulation. 10/27 The patient is lying in bed with her eyes open. She can track with her eyes and nod when asked questions. She will not speak. Her son is at the bedside and provides all information. Palliative care philosophies and services explained to the patient's son. Education provided regarding the patient's m ultiple co-morbidities and poor prognosis. He believes she has a good quality of life and would like to continue with aggressive treatment at this time. Concern was expressed about the patient's nutritional status and possible need for artificial feeding. He stated he would be ok with a dobhoff for a short time, but is not sure he would want a peg tube. Objective - Vital Signs Vital signs: Vital Signs Temp 98.5 F 09/11/22 15:20 Pulse 85 09/11/22 15:20 Resp 17 09/11/22 15:20 BP 105/72 09/11/22 15:20 Pulse Ox 96 09/11/22 15:20 FiO2 Intake & Output 09/10/22 09/11/22 09/11/22 18:59 06:59 18:59 Intake Total 0 Output Total 600 750 Balance -600 -750 0 Weight 61.235 kg Intake: Oral 0 Output: Urine 600 750 Uretheral (Field) 500 Other: Voiding Method Diaper Indwelling Catheter Indwelling Catheter - Exam General: Well developed, appears stated age. Chronically ill appearing HEENT: Head is atraumatic, normocephalic. Sclerae are clear. Pupils equal, round and reactive to light bilaterally. Mucus membranes moist. dried blood on lips. CV: Heart regular in rate and rhythm positive S1 and S2. Lungs: Scattered rhonchi through out. Tachypneic and labored respirations. on 9L NC Abdomen/GI: Soft.No guarding, rigidity, or abdominal tenderness. Musculoskeletal/ Extremities: Left sided weakness, No gross atrophy. no contractures Vascular: Radial pulses equal. 2/4. no peripheral edema Skin: Warm and dry, No rash Neurologic: Awake, alert and nods head to questions. Does not speak. - Labs CBC & Chem 7: 09/11/22 11:52 09/11/22 11:52 Labs: Abnormal Lab Results - Last 24 Hours (Table) 09/11/22 09/11/22 Range/Units 11:52 11:52 RBC 2.70 L (3.80-5.40) m/uL Hgb 9.1 L (11.4-16.0) gm/dL Hct 27.4 L (34.0-46.0) % MCV 101.5 H (80.0-100.0) fL RDW 18.2 H (11.5-15.5) % Plt Count 87 L (150-450) k/uL Chloride 108 H (98-107) mmol/L Carbon Dioxide 21 L (22-30) mmol/L BUN 59 H (7-17) mg/dL Creatinine 2.40 H (0.52-1.04) mg/dL Glucose 119 H (74-99) mg/dL Calcium 8.3 L (8.4-10.2) mg/dL Total Protein 5.2 L (6.3-8.2) g/dL Albumin 2.5 L (3.5-5.0) g/dL Microbiology - Last 24 Hours (Table) 09/08/22 02:09 Urine Culture - Final Urine,Voided Pseudomonas aeruginosa 09/08/22 00:54 Blood Culture - Preliminary Blood No Growth after 72 hours Assessment and Plan Assessment: Symptoms * Pain - CPOT 12/25 * Fatigue - Lethargic and weak * SOB - Yes, continue Zithromax and Zosyn * Insomnia - No * N/V - No * Anxiety - No * Depression - No * Confusion - Yes * Agitation - No * Hallucinations - No * Appetite/weight loss - Recent loss of appetite * Dysphagia - Yes, failed swallow eval, NPO * Constipation - No, LBM last night * Incontinence - Yes, wears briefs * Itch - No Plan: Summary/Goals - The patient is lying in bed and her breathing seems more labored today. Her oxygen demands are increased, as she is on 9L NC. Her son and daughter are at the bedside. Her son is in denial that his mom looks worse today. She is less responsive than yesterday. He is certain that he is going to take her home. Nutritional status is a concern. He again stated that he would agree to a dobhoff, which is not an option with her oral bleeding. But, he does not want a peg tube at this time. He is unrealistic and says he's doing everything he can just to "keep mom alive". Recommendations - Son agreed to OP palliative care at this time Advanced Directives - No Code Status - DNR Thank you for this consultation Keren Batista [facility] [id number] Email: [email or web address] Time with Patient: Greater than 30
[2022-09-11] MEDS ORDERED: POTASSIUM CHLORIDE 20 MEQ in WATER FOR INJECTION 1 100ML.BAG IVPB STA (16:37)
[2022-09-12] MEDS: LATANOPROST 0.005% OPHTH DROPS 2.5 ML BTL BOTH EYES SCH ×2 (03:33→22:10)
[2022-09-12] MEDS: METOPROLOL TARTRATE 25 MG TAB PO SCH ×3 (03:34→22:10)
[2022-09-12] MEDS: amLODIPine 5 MG TAB PO SCH (08:57)
[2022-09-12] MEDS: FOLIC ACID 1 MG TAB PO SCH (08:57)
[2022-09-12] MEDS: FUROSEMIDE 10 MG/ML 4 ML VIAL IV SCH ×2 (09:02→22:09)
[2022-09-12] MEDS: PIPERACILLIN-TAZOBACTAM 3.375 GM in SODIUM CHLORIDE 0.9% 100 ML IVPB SCH ×2 (09:04→22:09)
[2022-09-12 09:11] LABS: Anisocytosis Slight; HCT 29.2 % (34.0-46.0); HGB 9.5 gm/dL (11.4-16.0); Hypochromasia Marked; MCHC 32.3 g/dL (31.0-37.0); MCV 102.2 fL (80.0-100.0); Macrocytosis Moderate; Mean Platelet Volume 9.9; Poikilocytosis Marked; RBC 2.86 m/uL (3.80-5.40); RDW 18.7 % (11.5-15.5); WBC 4.7 k/uL (3.8-10.6)
[2022-09-12 09:26] LABS: Albumin 2.4 g/dL (3.5-5.0); Calcium 8.2 mg/dL (8.4-10.2); Magnesium 1.6 mg/dL (1.6-2.3); Platelet Count 78 k/uL (150-450); Potassium 3.3 mmol/L (3.5-5.1); Total Bilirubin 0.7 mg/dL (0.2-1.3); Total Protein 5.1 g/dL (6.3-8.2)
[2022-09-12] MEDS: SODIUM FERRIC GLUCONAT-SUCROSE 125 MG in SODIUM CHLORIDE 0.9% 100 ML IVPB SCH (09:32)
--- NOTE | 2022-09-12 10:54 | P.PN ---
Subjective Patient is seen for follow-up for acute kidney injury and hypokalemia. Serum creatinine staying at about 2.4-2.5 mg/dL. Maintained on IV Lasix Urine output at 1300 mL for 24 hours Patient does not communicate much Objective - Vital Signs Vital signs: Vital Signs Temp 97.6 F 09/12/22 04:00 Pulse 70 09/12/22 04:00 Resp 18 09/12/22 04:00 BP 106/64 09/12/22 04:00 Pulse Ox 97 09/12/22 04:00 FiO2 Intake & Output 09/11/22 09/12/22 09/12/22 18:59 06:59 18:59 Intake Total 0 Output Total 700 600 Balance -700 -600 Weight 61.235 kg Intake: Oral 0 Output: Urine 700 600 Other: Voiding Method Indwelling Catheter Indwelling Catheter - Exam Sleeping, arousable with painful stimuli Examination of the heart S1 and S2 Examination of the lungs decreased breath sounds at the bases Abdomen is soft nontender Examination lower extremities shows no significant edema - Labs CBC & Chem 7: 09/12/22 08:44 09/12/22 08:44 Labs: Abnormal Lab Results - Last 24 Hours (Table) 09/11/22 09/11/22 09/12/22 Range/Units 11:52 11:52 08:44 RBC 2.70 L (3.80-5.40) m/uL Hgb 9.1 L (11.4-16.0) gm/dL Hct 27.4 L (34.0-46.0) % MCV 101.5 H (80.0-100.0) fL RDW 18.2 H (11.5-15.5) % Plt Count 87 L (150-450) k/uL Potassium 3.3 L (3.5-5.1) mmol/L Chloride 108 H 108 H (98-107) mmol/L Carbon Dioxide 21 L (22-30) mmol/L BUN 59 H 56 H (7-17) mg/dL Creatinine 2.40 H 2.52 H (0.52-1.04) mg/dL Glucose 119 H 107 H (74-99) mg/dL Calcium 8.3 L 8.2 L (8.4-10.2) mg/dL AST 39 H (14-36) U/L Total Protein 5.2 L 5.1 L (6.3-8.2) g/dL Albumin 2.5 L 2.4 L (3.5-5.0) g/dL 09/12/22 Range/Units 08:44 RBC 2.86 L (3.80-5.40) m/uL Hgb 9.5 L (11.4-16.0) gm/dL Hct 29.2 L (34.0-46.0) % MCV 102.2 H (80.0-100.0) fL RDW 18.7 H (11.5-15.5) % Plt Count 78 L (150-450) k/uL Potassium (3.5-5.1) mmol/L Chloride (98-107) mmol/L Carbon Dioxide (22-30) mmol/L BUN (7-17) mg/dL Creatinine (0.52-1.04) mg/dL Glucose (74-99) mg/dL Calcium (8.4-10.2) mg/dL AST (14-36) U/L Total Protein (6.3-8.2) g/dL Albumin (3.5-5.0) g/dL Microbiology - Last 24 Hours (Table) 09/08/22 00:54 Blood Culture - Preliminary Blood No Growth after 96 hours 09/08/22 02:09 Urine Culture - Final Urine,Voided Pseudomonas aeruginosa Assessment and Plan Assessment: 1. Acute kidney injury secondary to ATN secondary to cardiorenal syndrome and anemia. Creatinine 3.12 on admission - 2.5 today. No hydronephrosis noted on kidney ultrasound. 2. Chronic kidney disease stage IV with baseline creatinine in the range of 1.7-2 secondary to nephrosclerosis. 3. Acute blood loss anemia status post blood transfusion. No active bleeding. Patient is noted to be pancytopenic possibly from underlying malignancy/chemo. Iron deficiency noted. 4. Metastatic breast cancer. Oncology following. 5. Acute hypoxic respiratory failure. 6. Volume overload. Improving with diuresis. 7. Hypokalemia from diuresis and poor intake. Replaced. 8. Hypernatremia from lack of oral water intake. Improving. 9. Pseudomonas UTI. On antibiotics. Plan: Replace potassium Continue with IV Lasix Overall prognosis guarded
[2022-09-12] MEDS ORDERED: ACETAMINOPHEN IV (For NPO) 1,000 MG in EMPTY BAG 1 BAG IVPB PRN (14:46)
--- NOTE | 2022-09-12 14:46 | P.PN ---
Subjective Progress Note Date: 09/12/22 Patient is an 87-year-old female with stage IV metastatic breast cancer currently on Ibrance, atrial fibrillation not on anticoagulation, CVA with left- sided residual deficits and aphasia, hypertension, hyperlipidemia, function quadpralgia from prior CVA, and dementia who presented to the emergency department secondary to worsening mentation. Upon arrival to the emergency department patient minimally responsive and nonverbal. She required 15 L nonrebreather mask maintaining saturations in the 90s. CBC revealing pancytopenia with WBC count of 3.6, hemoglobin of 6.5, and platelet count of 134. D-dimer was elevated at 18.20. CMP revealing hyperkalemia with potassium of 3.2 and an acute kidney injury with BUN of 79, creatinine 3.12, and GFR of 13 with baseline creatinine of 1.9. Troponin elevated at 0.723. ProBNP 45,200. Covid PCR, influenza A, influenza B were negative. Urinalysis positive for infection. Chest x-ray revealing moderately severe pulmonary edema with cardiomegaly and pleural fluid possibly resulting from combined congestive heart failure and RDS. Patient admitted under our services with consultations to pulmonology, cardiology, nephrology, oncology, and palliative care. Troponins were trended and remained flat. Cardiology felt that she had fluid and heart failure. Echocardiogram was obtained which showed preserved ejection fraction with significant LVH and pulmonary HTN. Diuresis was continued. She became hypernatremic initiate decreased oral intake. She was started on D5W. She developed significant hypokalemia which required aggressive potassium replacement. She was seen by speech therapy and was unable to tolerate any safest oral intake. She had 2 days where her respiratory status improved, however the BenzaClin on 09/11. Due to her significantly elevated d-dimer on admission she underwent bilateral lower extremity venous Dopplers are negative, VQ scan showed intermediate probability however this was felt likely to be secondary to her CHF exacerbation and she had no RV strain on echo. Her oxygen requirements have improved but then declined again requiring 9 L of oxygen. Imaging: Renal/bladder ultrasound-cholelithiasis with gallbladder polyp, repeat in 6 months, no hydronephrosis CT head: Hypoattenuation in the right occipital lobe which may represent chronic white matter changes. Remote injuries to the right frontal temporal junction and bilateral basal ganglia, nonspecific white matter changes. Bilateral venous Doppler-no evidence of DVT in both legs Pulmonary perfusion scan-intermediate probability of PE Repeat CXR- Unchanged bilaterael infiltrate Patient seen and examined at bedside with son present at bedside. I entered the room she was saying "help me". The son states she's been doing that all morning . He was initially concerned that she didn't have a bowel movement. However after discussed with nursing she had a large bowel movement today. I did discuss with the son that she has not been able to tolerate any oral intake for the last 6 days, she cannot have an NG tube placed at this point in time secondary to the need for high flow nasal cannula. I explained to him that though she improved for a couple of days this may just be too much for her body to handle. General: Ill-appearing, no distress, appears at stated age Derm: warm, dry Head: atraumatic, normocephalic, symmetric Eyes: EOMI, no lid lag, anicteric sclera Mouth: no lip lesion, scab on right upper lip, bloody scabbing in her mouth. Cardiovascular: S1S2 tachycardia and regular, no murmur, positive posterior tibial pulse bilateral, Lungs: Course of breath sounds bilateral, no rhonchi, no rales , + tachypnea with some accessory muscle use. Abdominal: soft, nontender to palpation, no guarding, no appreciable organomegaly Ext: no gross muscle atrophy, no edema, no contractures Neuro: Extraocular motion intact, pupils equal bilaterally, difficult to understand Psych: Awake today and saying "help me"., oriented to self, flat affect Assessment/plan: Acute hypoxic respiratory failure, likely multifactorial Type II non-STEMI related to heart failure Elevated d-dimer Acute metabolic encephalopathy Intermedicate probabilitiy pulmonary embolism- son refusing anticoagulation Acute exacerbation of diastolic congestive heart failure, ejection fraction 50- 55% -Clinically doubt pneumonia with patient's pro-calcitonin being less than 2 and rapid improvement in oxygen requirements with IV Lasix. -Patient had worsening respiratory status on 09/11. We'll increase Lasix to twice daily. -Strict I's and O's, daily weights -Cardiology recommendations: Continue with current care, will follow as needed -Pulmonary has signed off. Echocardiogram with diastolic dysfunction. - Patient is unable to tolerate any oral medications and therefore can be give her beta odessa Acute kidney injury on chronic kidney disease stage III Hypernatremia, resolved -Nephrology recommendations: Continue with Lasix and D5W - avoid nephrotoxic agents Dysphagia Severe protein calorie malnutrition - speech recommnedations - still not safe for oral intake. unsafe to insert NG tube at this point in time due to need for high flow nasal cannula as well as significantly increased work of breathing. Patient is also not cooperative which makes this difficult. Pancytopenia-likely related to breast cancer. Stage IV breast cancer on Ibrance Iron deficiency anemia -IV iron 2 -Improving -Status post 1 unit packed red blood cells -Continue to follow CBC -Oncology recommendations Pseudomonas UTI -Zosyn D # 4 Hypokalemia, resolved -Replace and recheck in a.m. Chronic: Prior CVA with residual aphasia and left sided defecits Permanent atrial fibrillation not on anticoagulation secondary to severe GI bleeding Poor overall prognosis. Patient has not been improving. I do long discussion with the son today that should she continued to not improve and be unable to eat that I would recommend hospice therapy. I reminded him that he would never want his mother to have a PEG tube and that this may just be too much for her body to handle given everything she is fighting. DVT prophylaxis: SCDs Discussed with: Patient, nursing, son Anticipated discharge: pending clinical course Anticipated discharge place: return home A total of 35 minutes was spent on the care of this complex patient more than 50% of the time was spent in counseling and care coordination. Active Medications Generic Name Dose Route Start Last Admin Trade Name Myronq PRN Reason Stop Dose Admin Amlodipine Besylate 5 mg 09/09/22 09:00 09/12/22 08:57 Amlodipine 5 Mg Tab PO Not Given DAILY KALINA Folic Acid 1 mg 09/09/22 09:00 09/12/22 08:57 Folic Acid 1 Mg Tab PO Not Given DAILY KALINA Furosemide 40 mg 09/11/22 21:00 09/12/22 09:02 Furosemide 10 Mg/Ml 4 Ml Vial IV 40 mg BID KALINA Administration Piperacillin Sod/Tazobactam 100 mls @ 25 mls/hr 09/08/22 21:00 09/12/22 09:04 Sod 3.375 gm/ Sodium Chloride IVPB 25 mls/hr Q12HR KALINA Administration Protocol Latanoprost 1 drops 09/08/22 21:00 09/12/22 03:33 Latanoprost 0.005% Ophth Drops 2.5 Ml Btl BOTH EYES Not Given HS KALINA Metoprolol Tartrate 25 mg 09/08/22 21:00 09/12/22 08:57 Metoprolol Tartrate 25 Mg Tab PO Not Given BID KALINA Miscellaneous Information 1 each 09/08/22 02:26 Pneumonia Protocol Utilized 1 Each Misc PO ONCE PRN Per Protocol Naloxone HCl 0.2 mg 09/08/22 03:08 Naloxone 0.4 Mg/Ml 1 Ml Vial IV Q2M PRN Opioid Reversal Objective - Vital Signs Vital signs: Vital Signs Temp 98.1 F 09/12/22 12:00 Pulse 105 H 09/12/22 12:00 Resp 17 09/12/22 12:00 BP 122/66 09/12/22 12:00 Pulse Ox 91 L 09/12/22 12:00 FiO2 Intake & Output 09/11/22 09/12/22 09/12/22 18:59 06:59 18:59 Intake Total 0 Output Total 700 600 Balance -700 -600 Weight 61.235 kg Intake: Oral 0 Output: Urine 700 600 Other: Voiding Method Indwelling Catheter Indwelling Catheter Indwelling Catheter # Bowel Movements 1 - Labs CBC & Chem 7: 09/12/22 08:44 09/12/22 08:44 Labs: Abnormal Lab Results - Last 24 Hours (Table) 09/12/22 09/12/22 Range/Units 08:44 08:44 RBC 2.86 L (3.80-5.40) m/uL Hgb 9.5 L (11.4-16.0) gm/dL Hct 29.2 L (34.0-46.0) % MCV 102.2 H (80.0-100.0) fL RDW 18.7 H (11.5-15.5) % Plt Count 78 L (150-450) k/uL Potassium 3.3 L (3.5-5.1) mmol/L Chloride 108 H (98-107) mmol/L BUN 56 H (7-17) mg/dL Creatinine 2.52 H (0.52-1.04) mg/dL Glucose 107 H (74-99) mg/dL Calcium 8.2 L (8.4-10.2) mg/dL AST 39 H (14-36) U/L Total Protein 5.1 L (6.3-8.2) g/dL Albumin 2.4 L (3.5-5.0) g/dL Microbiology - Last 24 Hours (Table) 09/08/22 00:54 Blood Culture - Preliminary Blood No Growth after 96 hours
[2022-09-12] MEDS: D5W WITH KCL 20 MEQ/L 1,000 ML IV SCH (17:06)
[2022-09-13] MEDS: amLODIPine 5 MG TAB PO SCH (07:18)
[2022-09-13] MEDS: METOPROLOL TARTRATE 25 MG TAB PO SCH ×2 (07:19→19:38)
[2022-09-13] MEDS: FOLIC ACID 1 MG TAB PO SCH (07:19)
[2022-09-13] MEDS: FUROSEMIDE 10 MG/ML 4 ML VIAL IV SCH ×2 (08:49→20:43)
[2022-09-13] MEDS: PIPERACILLIN-TAZOBACTAM 3.375 GM in SODIUM CHLORIDE 0.9% 100 ML IVPB SCH ×2 (08:49→20:43)
[2022-09-13 09:23] LABS: Anisocytosis Slight; HCT 29.1 % (34.0-46.0); HGB 9.6 gm/dL (11.4-16.0); Hypochromasia Marked; MCH 33.5 pg (25.0-35.0); MCV 101.6 fL (80.0-100.0); Macrocytosis Moderate; Mean Platelet Volume 10.2; Poikilocytosis Marked; RBC 2.87 m/uL (3.80-5.40); RDW 18.5 % (11.5-15.5); WBC 5.2 k/uL (3.8-10.6)
[2022-09-13 09:28] LABS: Platelet Count 92 k/uL (150-450)
[2022-09-13 09:38] LABS: Calcium 8.3 mg/dL (8.4-10.2); Magnesium 1.5 mg/dL (1.6-2.3)
[2022-09-13 09:49] LABS: Potassium 2.5 mmol/L (3.5-5.1)
--- NOTE | 2022-09-13 10:52 | P.PN ---
Subjective Patient is seen for follow-up for acute kidney injury and hypokalemia. Serum creatinine staying at about 2.4-2.5 mg/dL. Maintained on IV Lasix Urine output at 1300 mL for 24 hours Patient does not communicate much She is more awake today. Son is present at bedside. He has done significant oral care and the dried blood and coating in the mouth appears to be much better today. Objective - Vital Signs Vital signs: Vital Signs Temp 98.4 F 09/13/22 08:00 Pulse 104 H 09/13/22 08:00 Resp 19 09/13/22 08:00 BP 107/61 09/13/22 08:00 Pulse Ox 92 L 09/13/22 08:00 FiO2 Intake & Output 09/12/22 09/13/22 09/13/22 18:59 06:59 18:59 Output Total 1000 Balance -1000 Output: Urine 1000 Other: Voiding Method Indwelling Catheter Indwelling Catheter # Bowel Movements 1 - Exam Sleeping, arousable with painful stimuli Examination of the heart S1 and S2 Examination of the lungs decreased breath sounds at the bases Abdomen is soft nontender Examination lower extremities shows no significant edema - Labs CBC & Chem 7: 09/13/22 09:04 09/13/22 09:04 Labs: Abnormal Lab Results - Last 24 Hours (Table) 09/13/22 09/13/22 Range/Units 09:04 09:04 RBC 2.87 L (3.80-5.40) m/uL Hgb 9.6 L (11.4-16.0) gm/dL Hct 29.1 L (34.0-46.0) % MCV 101.6 H (80.0-100.0) fL RDW 18.5 H (11.5-15.5) % Plt Count 92 L (150-450) k/uL Potassium 2.5 L* (3.5-5.1) mmol/L BUN 55 H (7-17) mg/dL Creatinine 2.45 H (0.52-1.04) mg/dL Glucose 122 H (74-99) mg/dL Calcium 8.3 L (8.4-10.2) mg/dL Magnesium 1.5 L (1.6-2.3) mg/dL Microbiology - Last 24 Hours (Table) 09/08/22 00:54 Blood Culture - Preliminary Blood No Growth after 120 hours Assessment and Plan Assessment: 1. Acute kidney injury secondary to ATN secondary to cardiorenal syndrome and anemia. Creatinine 3.12 on admission - 2.4 today. No hydronephrosis noted on kidney ultrasound. 2. Chronic kidney disease stage IV with baseline creatinine in the range of 1.7-2 secondary to nephrosclerosis. 3. Acute blood loss anemia status post blood transfusion. No active bleeding. Patient is noted to be pancytopenic possibly from underlying malignancy/chemo. Iron deficiency noted. 4. Metastatic breast cancer. Oncology following. 5. Acute hypoxic respiratory failure. 6. Volume overload. Improving with diuresis. 7. Hypokalemia from diuresis and poor intake. Replaced. 8. Hypernatremia from lack of oral water intake. Improving. 9. Pseudomonas UTI. On antibiotics. Plan: Replace potassium Switch to by mouth Lasix in a.m. Repeat labs in a.m.
[2022-09-13] MEDS: MAGNESIUM SULFATE-D5W PMX 1 GM in DEXTROSE/WATER 1 100ML.BAG IVPB SCH ×3 (11:25→14:37)
--- NOTE | 2022-09-13 11:27 | P.PN ---
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 Upon arrival to the emergency department patient minimally responsive and nonverbal. She required 15 L nonrebreather mask maintaining saturations in the 90s. CBC revealing pancytopenia with WBC count of 3.6, hemoglobin of 6.5, and platelet count of 134. D-dimer was elevated at 18.20. CMP revealing hyperkalemia with potassium of 3.2 and an acute kidney injury with BUN of 79, creatinine 3.12, and GFR of 13 with baseline creatinine of 1.9. Troponin elevated at 0.723. ProBNP 45,200. Covid PCR, influenza A, influenza B were negative. Urinalysis positive for infection. Chest x-ray revealing moderately severe pulmonary edema with cardiomegaly and pleural fluid possibly resulting from combined congestive heart failure and RDS. Patient admitted under our services with consultations to pulmonology, cardiology, nephrology, oncology, and palliative care. Troponins were trended and remained flat. Cardiology felt that she had fluid and heart failure. Echocardiogram was obtained which showed preserved ejection fraction with significant LVH and pulmonary HTN. Diuresis was continued. She became hypernatremic initiate decreased oral intake. She was started on D5W. She developed significant hypokalemia which required aggressive potassium replacement. She was seen by speech therapy and was unable to tolerate any safest oral intake. She had 2 days where her respiratory status improved, however the BenzaClin on 09/11. Due to her significantly elevated d-dimer on admission she underwent bilateral lower extremity venous Dopplers are negative, VQ scan showed intermediate probability however this was felt likely to be secondary to her CHF exacerbation and she had no RV strain on echo. Her oxygen requirements have improved but then declined again requiring 9 L of oxygen. She has not shown any significant improvement. Imaging: Renal/bladder ultrasound-cholelithiasis with gallbladder polyp, repeat in 6 months, no hydronephrosis CT head: Hypoattenuation in the right occipital lobe which may represent chronic white matter changes. Remote injuries to the right frontal temporal junction and bilateral basal ganglia, nonspecific white matter changes. Bilateral venous Doppler-no evidence of DVT in both legs Pulmonary perfusion scan-intermediate probability of PE Repeat CXR- Unchanged bilateral infiltrate Patient seen and examined at bedside with son present at bedside. She is down to 6L NC. She has not showed significant improvement. Son was able to clean her mouth yesterday. Derm: warm, dry Head: atraumatic, normocephalic, symmetric Eyes: EOMI, no lid lag, anicteric sclera Mouth: , scab on right upper lip, mucus membranes dry Cardiovascular: S1S2 tachycardia and regular, no murmur, positive posterior tibial pulse bilateral, Lungs: Course of breath sounds bilateral, no rhonchi, no rales , no accessory muscle use. Abdominal: soft, nontender to palpation, no guarding, no appreciable organomegaly Ext: no gross muscle atrophy, no edema, no contractures Neuro: Extraocular motion intact, pupils equal bilaterally, difficult to understand Psych: Awake, oriented to self, flat affect Assessment/plan: Acute hypoxic respiratory failure, likely multifactorial Type II non-STEMI related to heart failure Elevated d-dimer Acute metabolic encephalopathy Intermedicate probabilitiy pulmonary embolism- son refusing anticoagulation due to not wanting to increase suffering Acute exacerbation of diastolic congestive heart failure, ejection fraction 50- 55% -Clinically doubt pneumonia with patient's pro-calcitonin being less than 2 and rapid improvement in oxygen requirements with IV Lasix. -Continue Lasix twice daily -Strict I's and O's, daily weights -Cardiology recommendations: Continue with current care, will follow as needed -Pulmonary has signed off. Echocardiogram with diastolic dysfunction. - Patient is unable to tolerate any oral medications and therefore can be give her beta odessa Acute kidney injury on chronic kidney disease stage III Hypernatremia, resolved -Nephrology recommendations: Continue with Lasix and D5W - avoid nephrotoxic agents Dysphagia Severe protein calorie malnutrition - speech recommendations - still not safe for oral intake. Unsafe to insert NG tube at this point in time due to need for high flow nasal cannula as well as significantly increased work of breathing. Patient is also not cooperative which makes this difficult. - Son would not want peg tube Pancytopenia-likely related to breast cancer. Stage IV breast cancer on Ibrance Iron deficiency anemia -IV iron 2 -Improving -Status post 1 unit packed red blood cells -Continue to follow CBC -Oncology recommendations Pseudomonas UTI -Zosyn D # 5 Hypokalemia Hypomagnesemia -Monitor and replace and needed Chronic: Prior CVA with residual aphasia and left sided defecits Permanent atrial fibrillation not on anticoagulation secondary to severe GI bleeding Poor overall prognosis. Patient has not been improving. I again discussed with the Son DVT prophylaxis: SCDs Discussed with: Patient, nursing, son Anticipated discharge: pending clinical course Anticipated discharge place: return home A total of 35 minutes was spent on the care of this complex patient more than 50% of the time was spent in counseling and care coordination. Active Medications Generic Name Dose Route Start Last Admin Trade Name Freq PRN Reason Stop Dose Admin Amlodipine Besylate 5 mg 09/09/22 09:00 09/13/22 07:18 Amlodipine 5 Mg Tab PO Not Given DAILY KALINA Folic Acid 1 mg 09/09/22 09:00 09/13/22 07:19 Folic Acid 1 Mg Tab PO Not Given DAILY KALINA Furosemide 40 mg 09/11/22 21:00 09/13/22 08:49 Furosemide 10 Mg/Ml 4 Ml Vial IV 40 mg BID KALINA Administration Piperacillin Sod/Tazobactam 100 mls @ 25 mls/hr 09/08/22 21:00 09/13/22 08:49 Sod 3.375 gm/ Sodium Chloride IVPB 25 mls/hr Q12HR KALINA Administration Protocol Potassium Chloride/Dextrose 1,000 mls @ 50 mls/hr 09/12/22 16:15 09/12/22 17:06 D5%-Kcl 20 Meq/L Iv Solution IV 50 mls/hr .Q20H KALINA Administration Magnesium Sulfate/Dextrose 1 100 mls @ 100 mls/hr 09/13/22 10:30 gm/ IV Solution IVPB 09/13/22 13:29 Q1H KALINA Potassium Chloride 10 meq/ IV 100 mls @ 100 mls/hr 09/13/22 11:00 Solution IVPB 09/13/22 16:59 Q1HR KALINA Protocol Latanoprost 1 drops 09/08/22 21:00 09/12/22 22:10 Latanoprost 0.005% Ophth Drops 2.5 Ml Btl BOTH EYES Not Given HS KALINA Metoprolol Tartrate 25 mg 09/08/22 21:00 09/13/22 07:19 Metoprolol Tartrate 25 Mg Tab PO Not Given BID KALINA Miscellaneous Information 1 each 09/08/22 02:26 Pneumonia Protocol Utilized 1 Each Misc PO ONCE PRN Per Protocol Naloxone HCl 0.2 mg 09/08/22 03:08 Naloxone 0.4 Mg/Ml 1 Ml Vial IV Q2M PRN Opioid Reversal Objective - Vital Signs Vital signs: Vital Signs Temp 98.4 F 09/13/22 08:00 Pulse 104 H 09/13/22 08:00 Resp 19 09/13/22 08:00 BP 107/61 09/13/22 08:00 Pulse Ox 92 L 09/13/22 08:00 FiO2 Intake & Output 09/12/22 09/13/22 09/13/22 18:59 06:59 18:59 Output Total 1000 Balance -1000 Output: Urine 1000 Other: Voiding Method Indwelling Catheter Indwelling Catheter # Bowel Movements 1 - Labs CBC & Chem 7: 09/13/22 09:04 09/13/22 09:04 Labs: Abnormal Lab Results - Last 24 Hours (Table) 09/13/22 09/13/22 Range/Units 09:04 09:04 RBC 2.87 L (3.80-5.40) m/uL Hgb 9.6 L (11.4-16.0) gm/dL Hct 29.1 L (34.0-46.0) % MCV 101.6 H (80.0-100.0) fL RDW 18.5 H (11.5-15.5) % Plt Count 92 L (150-450) k/uL Potassium 2.5 L* (3.5-5.1) mmol/L BUN 55 H (7-17) mg/dL Creatinine 2.45 H (0.52-1.04) mg/dL Glucose 122 H (74-99) mg/dL Calcium 8.3 L (8.4-10.2) mg/dL Magnesium 1.5 L (1.6-2.3) mg/dL Microbiology - Last 24 Hours (Table) 09/08/22 00:54 Blood Culture - Preliminary Blood No Growth after 120 hours
[2022-09-13] MEDS: POTASSIUM CHLORIDE 10 MEQ in WATER FOR INJECTION 1 100ML.BAG IVPB SCH ×6 (13:15→19:38)
[2022-09-13] MEDS: D5W WITH KCL 20 MEQ/L 1,000 ML IV SCH (19:39)
[2022-09-13] MEDS: LATANOPROST 0.005% OPHTH DROPS 2.5 ML BTL BOTH EYES SCH (20:44)
[2022-09-14 08:21] LABS: Calcium 8.2 mg/dL (8.4-10.2); Magnesium 2.4 mg/dL (1.6-2.3); Phosphorus 3.6 mg/dL (2.5-4.5); Potassium 3.2 mmol/L (3.5-5.1)
[2022-09-14] MEDS: D5W WITH KCL 20 MEQ/L 1,000 ML IV SCH (08:23)
[2022-09-14] MEDS: FUROSEMIDE 10 MG/ML 4 ML VIAL IV SCH ×2 (08:23→22:01)
[2022-09-14] MEDS: PIPERACILLIN-TAZOBACTAM 3.375 GM in SODIUM CHLORIDE 0.9% 100 ML IVPB SCH ×2 (08:23→22:01)
[2022-09-14 09:07] LABS: Anisocytosis Slight; HCT 28.9 % (34.0-46.0); HGB 9.2 gm/dL (11.4-16.0); Hypochromasia Marked; MCH 33.7 pg (25.0-35.0); MCHC 31.9 g/dL (31.0-37.0); MCV 105.5 fL (80.0-100.0); Macrocytosis Marked; Mean Platelet Volume 10.6; Platelet Count 105 k/uL (150-450); Poikilocytosis Moderate; RBC 2.74 m/uL (3.80-5.40); RDW 19.4 % (11.5-15.5); WBC 4.6 k/uL (3.8-10.6)
[2022-09-14] MEDS ORDERED: POTASSIUM CHLORIDE ER 20 MEQ TAB.ER PO STA (09:54)
--- NOTE | 2022-09-14 09:55 | P.PN ---
Subjective Patient is seen for follow-up for acute kidney injury and hypokalemia. Serum creatinine staying at about 2.4-2.5 mg/dL. Maintained on IV Lasix Urine output at 1000 mL for 24 hours Patient does not communicate much She is awake, comfortable. Objective - Vital Signs Vital signs: Vital Signs Temp 98.5 F 09/14/22 00:00 Pulse 70 09/14/22 04:00 Resp 18 09/14/22 04:00 BP 131/70 09/14/22 04:00 Pulse Ox 93 L 09/14/22 04:00 FiO2 Intake & Output 09/13/22 09/14/22 09/14/22 18:59 06:59 18:59 Other: Voiding Method Indwelling Catheter Indwelling Catheter - Exam Sleeping, arousable with painful stimuli Examination of the heart S1 and S2 Examination of the lungs decreased breath sounds at the bases Abdomen is soft nontender Examination lower extremities shows no significant edema - Labs CBC & Chem 7: 09/14/22 07:32 09/14/22 07:32 Labs: Abnormal Lab Results - Last 24 Hours (Table) 09/14/22 09/14/22 Range/Units 07:32 07:32 RBC 2.74 L (3.80-5.40) m/uL Hgb 9.2 L (11.4-16.0) gm/dL Hct 28.9 L (34.0-46.0) % MCV 105.5 H (80.0-100.0) fL RDW 19.4 H (11.5-15.5) % Plt Count 105 L (150-450) k/uL Macrocytosis Marked A Potassium 3.2 L (3.5-5.1) mmol/L BUN 49 H (7-17) mg/dL Creatinine 2.32 H (0.52-1.04) mg/dL Glucose 122 H (74-99) mg/dL Calcium 8.2 L (8.4-10.2) mg/dL Magnesium 2.4 H (1.6-2.3) mg/dL Microbiology - Last 24 Hours (Table) 09/08/22 00:54 Blood Culture - Final Blood No Growth after 144 hours Assessment and Plan Assessment: 1. Acute kidney injury secondary to ATN secondary to cardiorenal syndrome and anemia. Creatinine 3.12 on admission - 2.3 today. No hydronephrosis noted on kidney ultrasound. 2. Chronic kidney disease stage IV with baseline creatinine in the range of 1.7-2 secondary to nephrosclerosis. 3. Acute blood loss anemia status post blood transfusion. No active bleeding. Patient is noted to be pancytopenic possibly from underlying malignancy/chemo. Iron deficiency noted. 4. Metastatic breast cancer. Oncology following. 5. Acute hypoxic respiratory failure. 6. Volume overload. Improving with diuresis. 7. Hypokalemia from diuresis and poor intake. Replaced. 8. Hypernatremia from lack of oral water intake. Improving. 9. Pseudomonas UTI. On antibiotics. Plan: Replace potassium Switch to oral Lasix Repeat labs in a.m.
[2022-09-14] MEDS: METOPROLOL TARTRATE 25 MG TAB PO SCH ×2 (10:14→22:03)
[2022-09-14] MEDS: FOLIC ACID 1 MG TAB PO SCH (10:14)
[2022-09-14] MEDS: amLODIPine 5 MG TAB PO SCH (10:14)
--- NOTE | 2022-09-14 10:55 | XR ---
EXAMINATION TYPE: XR chest 1V portable DATE OF EXAM: 09/14/2022 Comparison: 09/11/2022 Clinical History: 87-year-old female shortness of breath Findings: Heart remains mildly enlarged. Diffuse interstitial and patchy opacities persist. Slightly less confl uent in the mid and lower lungs. More rounded density remains in the right midlung. Ongoing follow-up recommended. Impression: 1. Mild cardiomegaly. Continued diffuse interstitial and patchy opacities,. Densities are slightly le ss confluent in the mid and lower lungs. Correlate for CHF with pulmonary edema though slightly impro ving in the interval. 2. A more nodular area now seen at the right midlung. Ongoing follow-up to ensure complete clearance and exclude an underlying suspicious pulmonary nodule.
--- NOTE | 2022-09-14 11:33 | P.PN ---
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 Upon arrival to the emergency department patient minimally responsive and nonverbal. She required 15 L nonrebreather mask maintaining saturations in the 90s. CBC revealing pancytopenia with WBC count of 3.6, hemoglobin of 6.5, and platelet count of 134. D-dimer was elevated at 18.20. CMP revealing hyperkalemia with potassium of 3.2 and an acute kidney injury with BUN of 79, creatinine 3.12, and GFR of 13 with baseline creatinine of 1.9. Troponin elevated at 0.723. ProBNP 45,200. Covid PCR, influenza A, influenza B were negative. Urinalysis positive for infection. Chest x-ray revealing moderately severe pulmonary edema with cardiomegaly and pleural fluid possibly resulting from combined congestive heart failure and RDS. Patient admitted under our services with consultations to pulmonology, cardiology, nephrology, oncology, and palliative care. Troponins were trended and remained flat. Cardiology felt that she had fluid and heart failure. Echocardiogram was obtained which showed preserved ejection fraction with significant LVH and pulmonary HTN. Diuresis was continued. She became hypernatremic initiate decreased oral intake. She was started on D5W. She developed significant hypokalemia which required aggressive potassium replacement. She was seen by speech therapy and was unable to tolerate any safest oral intake. She had 2 days where her respiratory status improved, however the BenzaClin on 09/11. Due to her significantly elevated d-dimer on admission she underwent bilateral lower extremity venous Dopplers are negative, VQ scan showed intermediate probability however this was felt likely to be secondary to her CHF exacerbation and she had no RV strain on echo. Her oxygen requirements have improved but then declined again requiring 9 L of oxygen. She has not shown any significant improvement. Imaging: Renal/bladder ultrasound-cholelithiasis with gallbladder polyp, repeat in 6 months, no hydronephrosis CT head: Hypoattenuation in the right occipital lobe which may represent chronic white matter changes. Remote injuries to the right frontal temporal junction and bilateral basal ganglia, nonspecific white matter changes. Bilateral venous Doppler-no evidence of DVT in both legs Pulmonary perfusion scan-intermediate probability of PE Repeat CXR- Unchanged bilateral infiltrate Patient seen and examined at bedside with son present at bedside. She is on 6L NC< Her eyes are shut and she is not participating today, Per son she will wake up later. I told him if she is more awake was can try another swallow study today. Derm: warm, dry Head: atraumatic, normocephalic, symmetric Eyes: EOMI, no lid lag, anicteric sclera Mouth: , scab on right upper lip, mucus membranes dry Cardiovascular: S1S2 tachycardia and regular, no murmur, positive posterior tibial pulse bilateral, Lungs: Course of breath sounds bilateral, no rhonchi, no rales , no accessory muscle use. Abdominal: soft, nontender to palpation, no guarding, no appreciable organomegaly Ext: no gross muscle atrophy, no edema, no contractures Neuro: Extraocular motion intact, pupils equal bilaterally, difficult to understand Psych: Awake, oriented to self, flat affect Assessment/plan: Acute hypoxic respiratory failure, likely multifactorial Type II non-STEMI related to heart failure Elevated d-dimer Acute metabolic encephalopathy Intermediate probability pulmonary embolism- son refusing anticoagulation due to not wanting to increase suffering Acute exacerbation of diastolic congestive heart failure, ejection fraction 50- 55% -Clinically doubt pneumonia with patient's pro-calcitonin being less than 2 and rapid improvement in oxygen requirements with IV Lasix. -Continue Lasix twice daily has to be IV as patient is unsafe -Strict I's and O's, daily weights -Cardiology recommendations: Continue with current care, will follow as needed -Pulmonary has signed off. Echocardiogram with diastolic dysfunction. - Patient is unable to tolerate any oral medications and therefore can be give her beta odessa Acute kidney injury on chronic kidney disease stage III Hypernatremia, resolved -Nephrology recommendations: Continue with Lasix and D5W - avoid nephrotoxic agents Dysphagia Severe protein calorie malnutrition - speech recommendations - still not safe for oral intake. Unsafe to insert NG tube at this point in time due to need for high flow nasal cannula as well as significantly increased work of breathing. Patient is also not cooperative which makes this difficult. - Son would not want peg tube Pancytopenia-likely related to breast cancer. Stage IV breast cancer on Ibrance Iron deficiency anemia -IV iron -Improving -Status post 1 unit packed red blood cells -Continue to follow CBC -Oncology recommendations Pseudomonas UTI -Zosyn D # 6/7 Hypokalemia Hypomagnesemia -Monitor and replace and needed Chronic: Prior CVA with residual aphasia and left sided defecits Permanent atrial fibrillation not on anticoagulation secondary to severe GI bleeding Poor overall prognosis. Patient has not been improving. DVT prophylaxis: SCDs Discussed with: Patient, nursing, son Anticipated discharge: pending clinical course Anticipated discharge place: return home A total of 35 minutes was spent on the care of this complex patient more than 50% of the time was spent in counseling and care coordination. Active Medications Generic Name Dose Route Start Last Admin Trade Name Freq PRN Reason Stop Dose Admin Amlodipine Besylate 5 mg 09/09/22 09:00 09/14/22 10:14 Amlodipine 5 Mg Tab PO Not Given DAILY KALINA Folic Acid 1 mg 09/09/22 09:00 09/14/22 10:14 Folic Acid 1 Mg Tab PO Not Given DAILY KALINA Furosemide 40 mg 09/14/22 21:00 Furosemide 10 Mg/Ml 4 Ml Vial IV Q12HR KALINA Piperacillin Sod/Tazobactam 100 mls @ 25 mls/hr 09/08/22 21:00 09/14/22 08:23 Sod 3.375 gm/ Sodium Chloride IVPB 25 mls/hr Q12HR KALINA Administration Protocol Potassium Chloride/Dextrose 1,000 mls @ 50 mls/hr 09/12/22 16:15 09/14/22 08:23 D5%-Kcl 20 Meq/L Iv Solution IV 50 mls/hr .Q20H KALINA Administration Potassium Chloride 10 meq/ IV 100 mls @ 100 mls/hr 09/14/22 11:00 Solution IVPB 09/14/22 14:59 Q1HR KALINA Protocol Latanoprost 1 drops 09/08/22 21:00 09/13/22 20:44 Latanoprost 0.005% Ophth Drops 2.5 Ml Btl BOTH EYES Not Given HS KALINA Metoprolol Tartrate 25 mg 09/08/22 21:00 09/14/22 10:14 Metoprolol Tartrate 25 Mg Tab PO Not Given BID KALINA Miscellaneous Information 1 each 09/08/22 02:26 Pneumonia Protocol Utilized 1 Each Misc PO ONCE PRN Per Protocol Naloxone HCl 0.2 mg 09/08/22 03:08 Naloxone 0.4 Mg/Ml 1 Ml Vial IV Q2M PRN Opioid Reversal Objective - Vital Signs Vital signs: Vital Signs Temp 98.5 F 09/14/22 00:00 Pulse 55 L 09/14/22 08:20 Resp 17 09/14/22 08:20 BP 143/73 09/14/22 08:20 Pulse Ox 93 L 09/14/22 08:20 FiO2 Intake & Output 09/13/22 09/14/22 09/14/22 18:59 06:59 18:59 Other: Voiding Method Indwelling Catheter Indwelling Catheter Indwelling Catheter - Labs CBC & Chem 7: 09/14/22 07:32 09/14/22 07:32 Labs: Abnormal Lab Results - Last 24 Hours (Table) 09/14/22 09/14/22 Range/Units 07:32 07:32 RBC 2.74 L (3.80-5.40) m/uL Hgb 9.2 L (11.4-16.0) gm/dL Hct 28.9 L (34.0-46.0) % MCV 105.5 H (80.0-100.0) fL RDW 19.4 H (11.5-15.5) % Plt Count 105 L (150-450) k/uL Macrocytosis Marked A Potassium 3.2 L (3.5-5.1) mmol/L BUN 49 H (7-17) mg/dL Creatinine 2.32 H (0.52-1.04) mg/dL Glucose 122 H (74-99) mg/dL Calcium 8.2 L (8.4-10.2) mg/dL Magnesium 2.4 H (1.6-2.3) mg/dL Microbiology - Last 24 Hours (Table) 09/08/22 00:54 Blood Culture - Final Blood No Growth after 144 hours
[2022-09-14] MEDS: POTASSIUM CHLORIDE 10 MEQ in WATER FOR INJECTION 1 100ML.BAG IVPB SCH ×4 (11:56→15:45)
--- NOTE | 2022-09-14 15:17 | P.PN ---
Subjective Progress Note Date: 09/14/22 Principal diagnosis: AMS The patient is an 87-year-old female with a PMH of stage IV breast cancer, CVA with residual left-sided weakness, dementia, hypertension, and hyperlipidemia who was brought into the emergency room, on 09/08/22, by her son due to shortness of breath and worsening mental status. The history was obtained from the son at the bedside due to patient's altered mentation. Son reports that over the past 2 days, the patient's been increasingly unresponsive and appeared to have difficulty breathing. She is currently undergoing chemotherapy and was scheduled to start a new regimen earlier today. The patient is reportedly bedbound and has had a gradual decline in her functional capacity over the past several years after suffering from a large CVA in 2012. Upon arrival of EMS staff, the patient's SpO2 was noted to be 75% on room air. In the emergency room, chest x-ray revealed severe pulmonary edema with cardiomegaly and pleural fluid with RDS right greater than left. EKG reveals sinus rhythm with at 67 bpm with left axis deviation and left bundle branch block. Laboratory evaluation was remarkable for pancytopenia with hemoglobin 6.5 (previously 7.1 on 08/21), troponin 0.7-3, proBNP 45,200,, with UA consistent with UTI. Urine culture positive for pseudomonas. Cardiology an pulmonary services have been following and treating the patient for acute hypoxemic respiratory failure, likely multifactorial, in part related to fluid overload/CHF, plus possible underlying pneumonia.The patient was diuresed and placed on Zoysn. Nephrology has also been consulted. The patient has acute on chronic kidney disease (stage IV) with a baseline creatinine in the range of 1.7-2 secondary to nephrosclerosis. Creatinine on admission was 3.12. The patient also has had negative bilateral lower extremity venous Dopplers. However, her elevated D-dimer is consistent with probable blood clot, and her VQ scan shows intermediate probability of a blood clot. Her son adamantly does not want anticoagulation. She has been on Coumadin in the past for A fib, and did not tolerate this resulting in what sounds like a GI bleed. It was discussed wi th him that if she has a pulmonary embolism that is left untreated this could lead to . He understands the risks versus benefit at this time would not want to be on anticoagulation. 09/10 The patient is lying in bed with her eyes open. She can track with her eyes and nod when asked questions. She will not speak. Her son is at the bedside and provides all information. Palliative care philosophies and services explained to the patient's son. Education provided regarding the patient's m ultiple co-morbidities and poor prognosis. He believes she has a good quality of life and would like to continue with aggressive treatment at this time. Concern was expressed about the patient's nutritional status and possible need for artificial feeding. He stated he would be ok with a dobhoff for a short time, but is not sure he would want a peg tube. 09/11 The patient is lying in bed and her breathing seems more labored today. Her oxygen demands are increased, as she is on 9L NC. Her son and daughter are at the bedside. Her son is in denial that his mom looks worse today. She is le ss responsive than yesterday. He is certain that he is going to take her home. Nutritional status is a concern. He again stated that he would agree to a dobhoff, which is not an option with her oral bleeding. But, he does not want a peg tube at this time. He is unrealistic and says he's doing everything he can just to "keep mom alive". Objective - Vital Signs Vital signs: Vital Signs Temp 98.5 F 09/14/22 00:00 Pulse 61 09/14/22 12:59 Resp 21 09/14/22 12:00 BP 124/72 09/14/22 12:00 Pulse Ox 97 09/14/22 12:00 FiO2 Intake & Output 09/13/22 09/14/22 09/14/22 18:59 06:59 18:59 Output Total 475 Balance -475 Output: Urine 475 Other: Voiding Method Indwelling Catheter Indwelling Catheter Indwelling Catheter - Exam General: Well developed, appears stated age. Cachectic, Chronically ill appearing HEENT: Head is atraumatic, normocephalic. Sclerae are clear. Mucus membranes moist. dried blood on right upper lip. CV: Heart regular in rate and rhythm positive S1 and S2. Lungs: Scattered rhonchi through out. Tachypneic and labored respirations. Abdomen/GI: Soft.No guarding, rigidity, or abdominal tenderness. Musculoskeletal/ Extremities: Left sided weakness, No gross atrophy. no contractures Vascular: Radial pulses equal. 2/4. no peripheral edema Skin: Warm and dry, No rash Neurologic: Awake, alert and makes eye contact. - Labs CBC & Chem 7: 09/14/22 07:32 09/14/22 07:32 Labs: Abnormal Lab Results - Last 24 Hours (Table) 09/14/22 09/14/22 Range/Units 07:32 07:32 RBC 2.74 L (3.80-5.40) m/uL Hgb 9.2 L (11.4-16.0) gm/dL Hct 28.9 L (34.0-46.0) % MCV 105.5 H (80.0-100.0) fL RDW 19.4 H (11.5-15.5) % Plt Count 105 L (150-450) k/uL Macrocytosis Marked A Potassium 3.2 L (3.5-5.1) mmol/L BUN 49 H (7-17) mg/dL Creatinine 2.32 H (0.52-1.04) mg/dL Glucose 122 H (74-99) mg/dL Calcium 8.2 L (8.4-10.2) mg/dL Magnesium 2.4 H (1.6-2.3) mg/dL Microbiology - Last 24 Hours (Table) 09/08/22 00:54 Blood Culture - Final Blood No Growth after 144 hours Assessment and Plan Assessment: Symptoms * Pain - CPOT 10 * Fatigue - Lethargic and weak * SOB - Yes, continue Zithromax and Zosyn * Insomnia - No * N/V - No * Anxiety - No * Depression - No * Confusion - Yes * Agitation - No * Hallucinations - No * Appetite/weight loss - Recent loss of appetite * Dysphagia - Yes, failed swallow eval, NPO * Constipation - No, LBM 09/12 * Incontinence - Yes, wears briefs * Itch - No Plan: Summary/Goals - The patient is lying in bed. She will open her eyes, turn her head and make eye contact, but does not attempt to respond to any questions. Her son is at the bedside. He thinks his mother is doing better. He was informed that she has not made any progress over the weekend. He stated that the physicians have talked about nutrition. He was updated on her condition and her poor prognosis. She is malnourished. He stated would be alright with a corpak, but would not want a peg tube. He was reminded that a corpak is only temporary and can be pulled out accidentally. He stated he has been through a lot with his mom. She had a corpak before and was able to bounce back. He has been told several times in the last few years that she should put on hospice. He believes she has a good quality of life and is happy. The enjoy watching TV together. Recommendations - Son agreed to OP palliative care at this time, but plans on taking her home with [facility] Advanced Directives - No Code Status - DNR Thank you for this consultation Keren Batista [facility]- Palliative Care [facility] [id number] Email: [email or web address] Time with Patient: Greater than 30
[2022-09-14] MEDS ORDERED: FUROSEMIDE 40 MG TAB PO SCH (16:00)
--- NOTE | 2022-09-14 19:31 | P.PN ---
Subjective Progress Note Date: 09/14/22 Principal diagnosis: resp failure, on treatment for breast cancer In f/u today pt seems to have regressed since I saw her last week. She is only awake briefly, she follows you with her eyes, not vocal at all today. She cont to respond to commands. Objective - Vital Signs Vital signs: Vital Signs Temp 98.5 F 09/14/22 00:00 Pulse 92 09/14/22 15:54 Resp 21 09/14/22 15:54 BP 116/79 09/14/22 15:54 Pulse Ox 92 L 09/14/22 15:54 FiO2 Intake & Output 09/14/22 09/14/22 09/15/22 06:59 18:59 06:59 Output Total 475 Balance -475 Weight 61.235 kg Output: Urine 475 Other: Voiding Method Indwelling Catheter Indwelling Catheter - Constitutional General appearance: Present: cooperative, no acute distress, thin - EENT EENT Comment(s): severe dry mouth, large scab on the upper rt lip ENT: Present: hearing grossly normal - Respiratory Respiratory: bilateral: diminished, rhonchi (few scattered) - Cardiovascular Heart sounds: normal: S1, S2 - Peripheral edema leg Peripheral Edema: bilateral: None - Gastrointestinal General gastrointestinal: Present: normal bowel sounds, soft - Musculoskeletal Musculoskeletal: Present: generalized weakness - Labs CBC & Chem 7: 09/14/22 07:32 09/14/22 07:32 Labs: Abnormal Lab Results - Last 24 Hours (Table) 09/14/22 09/14/22 Range/Units 07:32 07:32 RBC 2.74 L (3.80-5.40) m/uL Hgb 9.2 L (11.4-16.0) gm/dL Hct 28.9 L (34.0-46.0) % MCV 105.5 H (80.0-100.0) fL RDW 19.4 H (11.5-15.5) % Plt Count 105 L (150-450) k/uL Macrocytosis Marked A Potassium 3.2 L (3.5-5.1) mmol/L BUN 49 H (7-17) mg/dL Creatinine 2.32 H (0.52-1.04) mg/dL Glucose 122 H (74-99) mg/dL Calcium 8.2 L (8.4-10.2) mg/dL Magnesium 2.4 H (1.6-2.3) mg/dL Microbiology - Last 24 Hours (Table) 09/08/22 00:54 Blood Culture - Final Blood No Growth after 144 hours Assessment and Plan (1) Breast cancer, stage 4 Current Visit: Yes Status: Chronic Priority: Medium Code(s): C50.919 - MALIGNANT NEOPLASM OF UNSP SITE OF UNSPECIFIED FEMALE BREAST SNOMED Code(s): 214136999 Plan: Pt mental status has regressed a little today. She is still on abx, hydration. Pt breast cancer has been well controlled on oral therapy-her left breast/axilla are look decent. Holding ibrance until any course of therapy and/or abx are completed. Son at bedside was given instructions and he verbalized understanding. Ca15.3 and 27.29 are stable. Dietitian order as family request
[2022-09-14] MEDS: LATANOPROST 0.005% OPHTH DROPS 2.5 ML BTL BOTH EYES SCH (22:03)
[2022-09-15] MEDS: FUROSEMIDE 10 MG/ML 4 ML VIAL IV SCH ×2 (09:28→21:33)
[2022-09-15] MEDS: PIPERACILLIN-TAZOBACTAM 3.375 GM in SODIUM CHLORIDE 0.9% 100 ML IVPB SCH ×2 (09:28→22:16)
[2022-09-15] MEDS: DEXTROSE 5% IN WATER 1,000 ML with POTASSIUM CHLORIDE 20 MEQ IV SCH (09:29)
[2022-09-15] MEDS: amLODIPine 5 MG TAB PO SCH (09:30)
[2022-09-15] MEDS: FOLIC ACID 1 MG TAB PO SCH (09:30)
[2022-09-15] MEDS: METOPROLOL TARTRATE 25 MG TAB PO SCH ×2 (09:30→21:19)
[2022-09-15 10:23] LABS: Anisocytosis Slight; HCT 29.1 % (34.0-46.0); HGB 9.5 gm/dL (11.4-16.0); Hypochromasia Marked; MCH 33.6 pg (25.0-35.0); MCHC 32.6 g/dL (31.0-37.0); MCV 103.1 fL (80.0-100.0); Macrocytosis Moderate; Mean Platelet Volume 9.4; Platelet Count 122 k/uL (150-450); Poikilocytosis Moderate; RBC 2.82 m/uL (3.80-5.40); RDW 18.9 % (11.5-15.5)
[2022-09-15 10:43] LABS: Albumin 2.5 g/dL (3.5-5.0); Calcium 8.4 mg/dL (8.4-10.2); Magnesium 2.2 mg/dL (1.6-2.3); Potassium 3.1 mmol/L (3.5-5.1); Total Bilirubin 0.6 mg/dL (0.2-1.3); Total Protein 5.1 g/dL (6.3-8.2)
[2022-09-15] MEDS ORDERED: POTASSIUM CHLORIDE ER 20 MEQ TAB.ER PO STA (12:21)
--- NOTE | 2022-09-15 12:22 | P.PN ---
Subjective Patient is seen for follow-up for acute kidney injury and hypokalemia. Serum creatinine staying at about 2.4-2.5 mg/dL. Maintained on IV Lasix Urine output at 1000 mL for 24 hours Patient does not communicate much. Son present at bedside. Patient developed shortness of breath yesterday and Lasix was changed back to IV. Objective - Vital Signs Vital signs: Vital Signs Temp 98.6 F 09/15/22 09:23 Pulse 74 09/15/22 09:23 Resp 18 09/15/22 09:23 BP 128/74 09/15/22 09:23 Pulse Ox 96 09/15/22 09:23 FiO2 Intake & Output 09/14/22 09/15/22 09/15/22 18:59 06:59 18:59 Output Total 475 150 Balance -475 -150 Weight 61.235 kg Output: Urine 475 150 Uretheral (Field) 150 Other: Voiding Method Indwelling Catheter Indwelling Catheter - Exam Sleeping, arousable with painful stimuli Examination of the heart S1 and S2 Examination of the lungs decreased breath sounds at the bases Abdomen is soft nontender Examination lower extremities shows no significant edema - Labs CBC & Chem 7: 09/15/22 09:45 09/15/22 09:45 Labs: Abnormal Lab Results - Last 24 Hours (Table) 09/15/22 09/15/22 Range/Units 09:45 09:45 RBC 2.82 L (3.80-5.40) m/uL Hgb 9.5 L (11.4-16.0) gm/dL Hct 29.1 L (34.0-46.0) % MCV 103.1 H (80.0-100.0) fL RDW 18.9 H (11.5-15.5) % Plt Count 122 L (150-450) k/uL Potassium 3.1 L (3.5-5.1) mmol/L BUN 47 H (7-17) mg/dL Creatinine 2.44 H (0.52-1.04) mg/dL Glucose 103 H (74-99) mg/dL Total Protein 5.1 L (6.3-8.2) g/dL Albumin 2.5 L (3.5-5.0) g/dL Assessment and Plan Assessment: 1. Acute kidney injury secondary to ATN secondary to cardiorenal syndrome and anemia. Creatinine 3.12 on admission - 2.4 today. No hydronephrosis noted on kidney ultrasound. 2. Chronic kidney disease stage IV with baseline creatinine in the range of 1.7-2 secondary to nephrosclerosis. 3. Acute blood loss anemia status post blood transfusion. No active bleeding. Patient is noted to be pancytopenic possibly from underlying malignancy/chemo. Iron deficiency noted. 4. Metastatic breast cancer. Oncology following. 5. Acute hypoxic respiratory failure. 6. Volume overload, had improved but worsened after switching to oral diuretics. Back on IV Lasix now 7. Hypokalemia from diuresis and poor intake. Replaced. 8. Hypernatremia from lack of oral water intake. Improving. 9. Pseudomonas UTI. On antibiotics. Plan: Agree with switching back to IV Lasix. Continue current dose Replace potassium. Add additional 40 to the 20 mEq given this morning
--- NOTE | 2022-09-15 12:57 | P.PN ---
Subjective Progress Note Date: 09/15/22 Principal diagnosis: AMS The patient is an 87-year-old female with a PMH of stage IV breast cancer, CVA with residual left-sided weakness, dementia, hypertension, and hyperlipidemia who was brought into the emergency room, on 09/08/22, by her son due to shortness of breath and worsening mental status. The history was obtained from the son at the bedside due to patient's altered mentation. Son reports that over the past 2 days, the patient's been increasingly unresponsive and appeared to have difficulty breathing. She is currently undergoing chemotherapy and was scheduled to start a new regimen earlier today. The patient is reportedly bedbound and has had a gradual decline in her functional capacity over the past several years after suffering from a large CVA in 2012. Upon arrival of EMS staff, the patient's SpO2 was noted to be 75% on room air. In the emergency room, chest x-ray revealed severe pulmonary edema with cardiomegaly and pleural fluid with RDS right greater than left. EKG reveals sinus rhythm with at 67 bpm with left axis deviation and left bundle branch block. Laboratory evaluation was remarkable for pancytopenia with hemoglobin 6.5 (previously 7.1 on 08/21), troponin 0.7-3, proBNP 45,200,, with UA consistent with UTI. Urine culture positive for pseudomonas. Cardiology an pulmonary services have been following and treating the patient for acute hypoxemic respiratory failure, likely multifactorial, in part related to fluid overload/CHF, plus possible underlying pneumonia.The patient was diuresed and placed on Zoysn. Nephrology has also been consulted. The patient has acute on chronic kidney disease (stage IV) with a baseline creatinine in the range of 1.7-2 secondary to nephrosclerosis. Creatinine on admission was 3.12. The patient also has had negative bilateral lower extremity venous Dopplers. However, her elevated D-dimer is consistent with probable blood clot, and her VQ scan shows intermediate probability of a blood clot. Her son adamantly does not want anticoagulation. She has been on Coumadin in the past for A fib, and did not tolerate this resulting in what sounds like a GI bleed. It was discussed wi th him that if she has a pulmonary embolism that is left untreated this could lead to . He understands the risks versus benefit at this time would not want to be on anticoagulation. 09/10 The patient is lying in bed with her eyes open. She can track with her eyes and nod when asked questions. She will not speak. Her son is at the bedside and provides all information. Palliative care philosophies and services explained to the patient's son. Education provided regarding the patient's m ultiple co-morbidities and poor prognosis. He believes she has a good quality of life and would like to continue with aggressive treatment at this time. Concern was expressed about the patient's nutritional status and possible need for artificial feeding. He stated he would be ok with a dobhoff for a short time, but is not sure he would want a peg tube. 09/11 The patient is lying in bed and her breathing seems more labored today. Her oxygen demands are increased, as she is on 9L NC. Her son and daughter are at the bedside. Her son is in denial that his mom looks worse today. She is le ss responsive than yesterday. He is certain that he is going to take her home. Nutritional status is a concern. He again stated that he would agree to a dobhoff, which is not an option with her oral bleeding. But, he does not want a peg tube at this time. He is unrealistic and says he's doing everything he can just to "keep mom alive". 09/14 The patient is lying in bed. She will open her eyes, turn her head and make eye contact, but does not attempt to respond to any questions. Her son is at the bedside. He thinks his mother is doing better. He was informed that she has not made any progress over the weekend. He stated that the physicians have talked about nutrition. He was updated on her condition and her poor prognosis. She is malnourished. He stated would be alright with a corpak, but would not want a peg tube. He was reminded that a corpak is only temporary and can be pulled out accidentally. He stated he has been through a lot with his mom. She had a corpak before and was able to bounce back. He has been told several times in the last few years that she should put on hospice. He believes she has a good quality of life and is happy. The enjoy watching TV together. Objective - Vital Signs Vital signs: Vital Signs Temp 98.0 F 09/15/22 12:41 Pulse 93 09/15/22 12:41 Resp 18 09/15/22 12:41 BP 132/80 09/15/22 12:41 Pulse Ox 90 L 09/15/22 12:41 FiO2 Intake & Output 09/14/22 09/15/22 09/15/22 18:59 06:59 18:59 Output Total 475 150 Balance -475 -150 Weight 61.235 kg Output: Urine 475 150 Uretheral (Field) 150 Other: Voiding Method Indwelling Catheter Indwelling Catheter - Exam General: Well developed, appears stated age. Cachectic, Chronically ill appearing HEENT: Head is atraumatic, normocephalic. Sclerae are clear. Mucus membranes moist. dried blood on right upper lip. CV: Heart regular in rate and rhythm positive S1 and S2. Lungs: Scattered rhonchi through out. Tachypneic and labored respirations. 9L NC Abdomen/GI: Soft.No guarding, rigidity, or abdominal tenderness. Musculoskeletal/ Extremities: Left sided weakness, No gross atrophy. no contra ctures. +generalized weakness Vascular: Radial pulses equal. 2/4. no peripheral edema Skin: Warm and dry, No rash Neurologic: Awakens with painful stimuli, does not attempt to follow commands - Labs CBC & Chem 7: 09/15/22 09:45 09/15/22 09:45 Labs: Abnormal Lab Results - Last 24 Hours (Table) 09/15/22 09/15/22 Range/Units 09:45 09:45 RBC 2.82 L (3.80-5.40) m/uL Hgb 9.5 L (11.4-16.0) gm/dL Hct 29.1 L (34.0-46.0) % MCV 103.1 H (80.0-100.0) fL RDW 18.9 H (11.5-15.5) % Plt Count 122 L (150-450) k/uL Potassium 3.1 L (3.5-5.1) mmol/L BUN 47 H (7-17) mg/dL Creatinine 2.44 H (0.52-1.04) mg/dL Glucose 103 H (74-99) mg/dL Total Protein 5.1 L (6.3-8.2) g/dL Albumin 2.5 L (3.5-5.0) g/dL Assessment and Plan Assessment: Symptoms * Pain - CPOT 12/25 * Fatigue - Lethargic and weak * SOB - Yes, continue Zosyn and Lasix * Insomnia - No * N/V - No * Anxiety - No * Depression - No * Confusion - Yes * Agitation - No * Hallucinations - No * Appetite/weight loss - Recent loss of appetite * Dysphagia - Yes, failed swallow eval, NPO * Constipation - No, LBM 09/12 * Incontinence - Yes, wears briefs * Itch - No Plan: Summary/Goals - Patient continue to decline. She is more lethargic and opens eyes to painful stimulus. Today she is on 9L NC. The patient's son is present and states he is still hopeful his mom will turn around. Nutrition continues to be an on going concern. Handtools Repairer following. However, the attending does not recommend a NG tube or corpack due to the patient's declining respiratory status and recent bleeding from mouth. The patient's son states he would not want a peg tube. The patient does not meet criteria for TPN. She has been NPO for 7 days now. Hospice philosophies gently brought up to patient's son again. He was quick to decline stating they have recommending that for years and she is still here. Recommendations - Son agreed to OP palliative care at this time, but plans on taking her home with [facility] Advanced Directives - No Code Status - DNR Thank you for this consultation Keren Batista [facility]- Palliative Care [facility] [id number] Email: [email or web address] Time with Patient: Less than 30
--- NOTE | 2022-09-15 13:47 | P.PN ---
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 Upon arrival to the emergency department patient minimally responsive and nonverbal. She required 15 L nonrebreather mask maintaining saturations in the 90s. CBC revealing pancytopenia with WBC count of 3.6, hemoglobin of 6.5, and platelet count of 134. D-dimer was elevated at 18.20. CMP revealing hyperkalemia with potassium of 3.2 and an acute kidney injury with BUN of 79, creatinine 3.12, and GFR of 13 with baseline creatinine of 1.9. Troponin elevated at 0.723. ProBNP 45,200. Covid PCR, influenza A, influenza B were negative. Urinalysis positive for infection. Chest x-ray revealing moderately severe pulmonary edema with cardiomegaly and pleural fluid possibly resulting from combined congestive heart failure and RDS. Patient admitted under our services with consultations to pul monology, cardiology, nephrology, oncology, and palliative care. Troponins were trended and remained flat. Cardiology felt that she had fluid and heart failure. Echocardiogram was obtained which showed preserved ejection fraction with significant LVH and pulmonary HTN. Diuresis was continued. Patient became hypernatremic with a decreased oral intake. She was started on D5W. She developed significant hypokalemia which required aggressive potassium replacement. She was seen by speech therapy and was unable to tolerate any safe oral intake. She had 2 days where her respiratory status improved, however she again deteriorated. Due to her significantly elevated d-dimer on admission she underwent bilateral lower extremity venous Dopplers are negative, VQ scan showed intermediate probability however this was felt likely to be secondary to her CHF exacerbation and she had no RV strain on echo. Her oxygen requirements have improved but then declined again on 09/11/22 requiring 9 L of oxygen to maintain SpO2 of 90%. She has not shown any significant improvement. Poor overall prognosis. Patient has not been improving. Imaging: Renal/bladder ultrasound-cholelithiasis with gallbladder polyp, repeat in 6 months, no hydronephrosis CT head: Hypoattenuation in the right occipital lobe which may represent chronic white matter changes. Remote injuries to the right frontal temporal junction and bilateral basal ganglia, nonspecific white matter changes. Bilateral venous Doppler-no evidence of DVT in both legs Pulmonary perfusion scan-intermediate probability of PE Repeat CXR- Unchanged bilateral infiltrate Physical exam: Patient seen and examined at bedside this morning. Patient nonverbal and had difficult time awakening during assessment, patient did open eyes and quickly drifted back to sleep. Patient's son stated she had a rough night and needs her sleep. She is on 9L [place]. Morning labs reviewed, patient with continued hypokalemia and orders were given by nephrology for replacement. Renal function appears stable with BUN 47, creatinine 2.44, and GFR of 17. Had a discussion regarding hospice care with patient's son at bedside. At this time patient's son is adamant regarding initiation of hospice care, it was explained that patient has not shown any significant improvement and there is a strong possibility that she may not. Patient's son wishes to take patient home. It was discussed that if patient continues to show no improvement or further declines that we will reevaluate the possibility and further discuss hospice care. Vital signs reviewed and stable. General: chronically ill appearing. remains sedated Derm: Skin warm and dry, normal coloration for ethnicity. Head: Atraumatic, normocephalic and symmetric. Eyes: EOMs intact, no lid lag, and anicteric sclera Mouth: no lip lesions, mucus membranes moist Cardiovascular: regular rate and rhythm with normal S1S2, no murmur, positive posterior tibial pulses bilaterally, and cap refill < 2 seconds. Lungs: Respirations tachypneic with increased respiratory effort on 9 L O2 via high flow nasal cannula, mild distress with diaphragmatic breathing, lungs diffuse coarse rhonchi Abdominal: soft, nontender to palpation, no guarding, no appreciable organomegaly Ext: No gross muscle atrophy, no edema, no contractures Neuro: Minimally responsive, withdraws from pain and open eyes but nonverbal. Pupils 2 mm equal bilaterally. Psych: Minimally responsive Assessment and plan of care: Acute hypoxic respiratory failure, likely multifactorial Type II non-STEMI related to heart failure Elevated d-dimer Acute metabolic encephalopathy Intermediate probability pulmonary embolism- son refusing anticoagulation due to not wanting to increase suffering Acute exacerbation of diastolic congestive heart failure, ejection fraction 50- 55% -Clinically doubt pneumonia with patient's pro-calcitonin being less than 2 and rapid improvement in oxygen requirements with IV Lasix. -Continue Lasix twice daily has to be IV as patient is unsafe -Strict I's and O's, daily weights -Cardiology recommendations: Continue with current care, will follow as needed -Pulmonary has signed off. Echocardiogram with diastolic dysfunction. -Patient is unable to tolerate any oral medications and therefore can be give her beta odessa Acute kidney injury on chronic kidney disease stage III Hypernatremia, resolved -Nephrology recommendations: Continue with Lasix and D5W -Avoid nephrotoxic agents Dysphagia Severe protein calorie malnutrition -Speech following -Still not safe for oral intake. Unsafe to insert NG tube at this point in time due to need for high flow nasal cannula as well as significantly increased work of breathing. Patient is also not cooperative which makes this difficult. -Son states he would not want peg tube Pancytopenia-likely related to breast cancer. Stage IV breast cancer on Ibrance Iron deficiency anemia -IV iron -Improving -Status post 1 unit packed red blood cells -Continue to follow CBC -Oncology recommendations Pseudomonas UTI -Zosyn Day # 05/21 Hypokalemia Hypomagnesemia -Monitor and replace and needed Chronic: Prior CVA with residual aphasia and left sided defecits Permanent atrial fibrillation not on anticoagulation secondary to severe GI bleeding Poor overall prognosis. Patient has not been improving. DVT prophylaxis: SCDs Discussed with: Patient, patient's son, and RN Anticipated discharge: pending clinical course Anticipated discharge place: Return home A total of 33 minutes was spent on the care of this complex patient more than 50% of the time was spent in counseling and care coordination. Finn Collier NP rendered care for this patient independently, reviewed the findings and plan as documented in the note above. I did not physically speak with or examine the patient on this date. Objective - Vital Signs Vital signs: Vital Signs Temp 98.6 F 09/15/22 04:00 Pulse 83 09/15/22 04:00 Resp 21 09/15/22 04:00 BP 112/72 09/15/22 04:00 Pulse Ox 96 09/15/22 04:00 FiO2 Intake & Output 09/14/22 09/15/22 09/15/22 18:59 06:59 18:59 Output Total 475 150 Balance -475 -150 Weight 61.235 kg Output: Urine 475 150 Uretheral (Field) 150 Other: Voiding Method Indwelling Catheter Indwelling Catheter - Labs CBC & Chem 7: 09/15/22 09:45 09/15/22 09:45 Labs: Abnormal Lab Results - Last 24 Hours (Table) 09/14/22 09/14/22 Range/Units 07:32 07:32 RBC 2.74 L (3.80-5.40) m/uL Hgb 9.2 L (11.4-16.0) gm/dL Hct 28.9 L (34.0-46.0) % MCV 105.5 H (80.0-100.0) fL RDW 19.4 H (11.5-15.5) % Plt Count 105 L (150-450) k/uL Macrocytosis Marked A Potassium 3.2 L (3.5-5.1) mmol/L BUN 49 H (7-17) mg/dL Creatinine 2.32 H (0.52-1.04) mg/dL Glucose 122 H (74-99) mg/dL Calcium 8.2 L (8.4-10.2) mg/dL Magnesium 2.4 H (1.6-2.3) mg/dL
[2022-09-15] MEDS: POTASSIUM CHLORIDE 20 MEQ in WATER FOR INJECTION 1 100ML.BAG IVPB SCH ×2 (16:27→18:57)
[2022-09-15] MEDS: LATANOPROST 0.005% OPHTH DROPS 2.5 ML BTL BOTH EYES SCH (21:33)
[2022-09-16] MEDS: DEXTROSE 5% IN WATER 1,000 ML with POTASSIUM CHLORIDE 20 MEQ IV SCH ×2 (04:07→21:17)
[2022-09-16] MEDS: FOLIC ACID 1 MG TAB PO SCH (08:40)
[2022-09-16] MEDS: METOPROLOL TARTRATE 25 MG TAB PO SCH ×2 (08:40→21:17)
[2022-09-16] MEDS: amLODIPine 5 MG TAB PO SCH (08:40)
[2022-09-16] MEDS: FUROSEMIDE 10 MG/ML 4 ML VIAL IV SCH ×2 (08:40→21:31)
--- NOTE | 2022-09-16 10:58 | P.PN ---
Subjective Progress Note Date: 09/16/22 Principal diagnosis: AMS The patient is an 87-year-old female with a PMH of stage IV breast cancer, CVA with residual left-sided weakness, dementia, hypertension, and hyperlipidemia who was brought into the emergency room, on 09/08/22, by her son due to shortness of breath and worsening mental status. The history was obtained from the son at the bedside due to patient's altered mentation. Son reports that over the past 2 days, the patient's been increasingly unresponsive and appeared to have difficulty breathing. She is currently undergoing chemotherapy and was scheduled to start a new regimen earlier today. The patient is reportedly bedbound and has had a gradual decline in her functional capacity over the past several years after suffering from a large CVA in 2012. Upon arrival of EMS staff, the patient's SpO2 was noted to be 75% on room air. In the emergency room, chest x-ray revealed severe pulmonary edema with cardiomegaly and pleural fluid with RDS right greater than left. EKG reveals sinus rhythm with at 67 bpm with left axis deviation and left bundle branch block. Laboratory evaluation was remarkable for pancytopenia with hemoglobin 6.5 (previously 7.1 on 08/21), troponin 0.7-3, proBNP 45,200,, with UA consistent with UTI. Urine culture positive for pseudomonas. Cardiology an pulmonary services have been following and treating the patient for acute hypoxemic respiratory failure, likely multifactorial, in part related to fluid overload/CHF, plus possible underlying pneumonia.The patient was diuresed and placed on Zoysn. Nephrology has also been consulted. The patient has acute on chronic kidney disease (stage IV) with a baseline creatinine in the range of 1.7-2 secondary to nephrosclerosis. Creatinine on admission was 3.12. The patient also has had negative bilateral lower extremity venous Dopplers. However, her elevated D-dimer is consistent with probable blood clot, and her VQ scan shows intermediate probability of a blood clot. Her son adamantly does not want anticoagulation. She has been on Coumadin in the past for A fib, and did not tolerate this resulting in what sounds like a GI bleed. It was discussed wi th him that if she has a pulmonary embolism that is left untreated this could lead to . He understands the risks versus benefit at this time would not want to be on anticoagulation. 09/10 The patient is lying in bed with her eyes open. She can track with her eyes and nod when asked questions. She will not speak. Her son is at the bedside and provides all information. Palliative care philosophies and services explained to the patient's son. Education provided regarding the patient's m ultiple co-morbidities and poor prognosis. He believes she has a good quality of life and would like to continue with aggressive treatment at this time. Concern was expressed about the patient's nutritional status and possible need for artificial feeding. He stated he would be ok with a dobhoff for a short time, but is not sure he would want a peg tube. 09/11 The patient is lying in bed and her breathing seems more labored today. Her oxygen demands are increased, as she is on 9L NC. Her son and daughter are at the bedside. Her son is in denial that his mom looks worse today. She is le ss responsive than yesterday. He is certain that he is going to take her home. Nutritional status is a concern. He again stated that he would agree to a dobhoff, which is not an option with her oral bleeding. But, he does not want a peg tube at this time. He is unrealistic and says he's doing everything he can just to "keep mom alive". 09/14 The patient is lying in bed. She will open her eyes, turn her head and make eye contact, but does not attempt to respond to any questions. Her son is at the bedside. He thinks his mother is doing better. He was informed that she has not made any progress over the weekend. He stated that the physicians have talked about nutrition. He was updated on her condition and her poor prognosis. She is malnourished. He stated would be alright with a corpak, but would not want a peg tube. He was reminded that a corpak is only temporary and can be pulled out accidentally. He stated he has been through a lot with his mom. She had a corpak before and was able to bounce back. He has been told several times in the last few years that she should put on hospice. He believes she has a good quality of life and is happy. The enjoy watching TV together. 09/15 Patient continue to decline. She is more lethargic and opens eyes to painful stimulus. Today she is on 9L NC. The patient's son is present and states he is still hopeful his mom will turn around. Nutrition continues to be an on going concern. Summer Clerk following. However, the attending does not recommend a NG tube or corpack due to the patient's declining respiratory status and recent bleeding from mouth. The patient's son states he would not want a peg tube. The patient does not meet criteria for TPN. She has been NPO for 7 days now. Hospice philosophies gently brought up to patient's son again. He was quick to decline stating they have recommending that for years and she is still here. Objective - Vital Signs Vital signs: Vital Signs Temp 97.9 F 09/16/22 08:00 Pulse 84 09/16/22 08:00 Resp 20 09/16/22 08:00 BP 120/74 09/16/22 08:00 Pulse Ox 99 09/16/22 09:12 FiO2 Intake & Output 09/15/22 09/16/22 09/16/22 18:59 06:59 18:59 Output Total 750 700 Balance -750 -700 Output: Urine 750 700 Other: Voiding Method Indwelling Catheter Indwelling Catheter Indwelling Catheter # Bowel Movements 2 - Exam General: Well developed, appears stated age. Cachectic, Chronically ill appearin g HEENT: Head is atraumatic, normocephalic. Sclerae are clear. Mucus membranes moist. dried blood on right upper lip. CV: Heart regular in rate and rhythm positive S1 and S2. Lungs: Scattered rhonchi through out. Tachypneic and labored respirations. 9L NC Abdomen/GI: Soft. No guarding, rigidity, or abdominal tenderness. Musculoskeletal/ Extremities: Left sided weakness, No gross atrophy. No contractures. +generalized weakness Vascular: Radial pulses equal. 2/4. no peripheral edema Skin: Warm and dry, No rash Neurologic: Awake, occasionally - Labs CBC & Chem 7: 09/15/22 09:45 09/15/22 09:45 Labs: Abnormal Lab Results - Last 24 Hours (Table) 09/15/22 09/15/22 Range/Units 09:45 09:45 RBC 2.82 L (3.80-5.40) m/uL Hgb 9.5 L (11.4-16.0) gm/dL Hct 29.1 L (34.0-46.0) % MCV 103.1 H (80.0-100.0) fL RDW 18.9 H (11.5-15.5) % Plt Count 122 L (150-450) k/uL Potassium 3.1 L (3.5-5.1) mmol/L BUN 47 H (7-17) mg/dL Creatinine 2.44 H (0.52-1.04) mg/dL Glucose 103 H (74-99) mg/dL Total Protein 5.1 L (6.3-8.2) g/dL Albumin 2.5 L (3.5-5.0) g/dL Assessment and Plan Assessment: Symptoms * Pain - CPOT 12/25 * Fatigue - weak, frail and debilitated * SOB - Yes, continue Zosyn and Lasix * Insomnia - No * N/V - No * Anxiety - No * Depression - No * Confusion - Yes * Agitation - No * Hallucinations - No * Appetite/weight loss - Recent loss of appetite * Dysphagia - Yes, failed swallow eval, NPO * Constipation - No, LBM 09/15 * Incontinence - Yes, wears briefs * Itch - No Plan: Summary/Goals - The patient is awake. She is constantly looking from me to her son, back and forth. She slightly nodded her head to couple questions, but not consistently. Discussed with her son the fact that his mother's condition is not improving. He gets upset. He states he is aware because he is there all the time. It was mentioned to him that hospice might be something to consider at this point. He got even more upset. He thinks the physicians just want her gone because they need the hospital room. We again talked about her overall condition, her lack of nutrition, and her quality of life. He stated that he did not want to keep repeating himself. He has been told for years that he should put his mother in hospice and each time she bounces back. It was suggested that maybe he should look into what services hospice has to offer as a back up plan in the event that she is not able to bounce back this time. He stated right now he is going to take things one day at a time and remain hopeful that she will get better so he can take her home. He would "never leave her here". He was informed that he can take her home either way, hospice could come to their house. He stated he did not want to talk about hospice anymore. He wants to give his mother more time to see if she improves. Recommendations - Son agreed to OP palliative care at this time, but plans on taking her home with [facility] Advanced Directives - No Code Status - DNR Thank you for this consultation Keren Batista [facility]- Palliative Care [facility] [id number] Email: [email or web address] Time with Patient: Greater than 30
--- NOTE | 2022-09-16 11:11 | P.PN ---
Subjective Patient is seen for follow-up for acute kidney injury and hypokalemia. Serum creatinine staying at about 2.4-2.5 mg/dL. Maintained on IV Lasix Urine output at 1000 mL for 24 hours Patient does not communicate much. Son present at bedside. No complaints today Objective - Vital Signs Vital signs: Vital Signs Temp 97.9 F 09/16/22 08:00 Pulse 84 09/16/22 08:00 Resp 20 09/16/22 08:00 BP 120/74 09/16/22 08:00 Pulse Ox 99 09/16/22 09:12 FiO2 Intake & Output 09/15/22 09/16/22 09/16/22 18:59 06:59 18:59 Output Total 750 700 Balance -750 -700 Output: Urine 750 700 Other: Voiding Method Indwelling Catheter Indwelling Catheter Indwelling Catheter # Bowel Movements 2 - Exam Sleeping, arousable with painful stimuli Examination of the heart S1 and S2 Examination of the lungs decreased breath sounds at the bases Abdomen is soft nontender Examination lower extremities shows no significant edema - Labs CBC & Chem 7: 09/15/22 09:45 09/15/22 09:45 Assessment and Plan Assessment: 1. Acute kidney injury secondary to ATN secondary to cardiorenal syndrome and anemia. Creatinine 3.12 on admission - 2.4 today. No hydronephrosis noted on kidney ultrasound. 2. Chronic kidney disease stage IV with baseline creatinine in the range of 1.7-2 secondary to nephrosclerosis. 3. Acute blood loss anemia status post blood transfusion. No active bleeding. Patient is noted to be pancytopenic possibly from underlying malignancy/chemo. Iron deficiency noted. 4. Metastatic breast cancer. Oncology following. 5. Acute hypoxic respiratory failure. 6. Volume overload, had improved but worsened after switching to oral diuretics. Back on IV Lasix now 7. Hypokalemia from diuresis and poor intake. Replaced. 8. Hypernatremia from lack of oral water intake. Improving. 9. Pseudomonas UTI. On antibiotics. Plan: Continue with IV Lasix Replace potassium. Add additional 40 to the 20 mEq given this morning Check labs
--- NOTE | 2022-09-16 13:53 | P.PN ---
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 Upon arrival to the emergency department patient minimally responsive and nonverbal. She required 15 L nonrebreather mask maintaining saturations in the 90s. CBC revealing pancytopenia with WBC count of 3.6, hemoglobin of 6.5, and platelet count of 134. D-dimer was elevated at 18.20. CMP revealing hyperkalemia with potassium of 3.2 and an acute kidney injury with BUN of 79, creatinine 3.12, and GFR of 13 with baseline creatinine of 1.9. Troponin elevated at 0.723. ProBNP 45,200. Covid PCR, influenza A, influenza B were negative. Urinalysis positive for infection. Chest x-ray revealing moderately severe pulmonary edema with cardiomegaly and pleural fluid possibly resulting from combined congestive heart failure and RDS. Patient admitted under our services with consultations to pul monology, cardiology, nephrology, oncology, and palliative care. Troponins were trended and remained flat. Cardiology felt that she had fluid and heart failure. Echocardiogram was obtained which showed preserved ejection fraction with significant LVH and pulmonary HTN. Diuresis was continued. Patient became hypernatremic with a decreased oral intake. She was started on D5W. She developed significant hypokalemia which required aggressive potassium replacement. She was seen by speech therapy and was unable to tolerate any safe oral intake. She had 2 days where her respiratory status improved, however she again deteriorated. Due to her significantly elevated d-dimer on admission she underwent bilateral lower extremity venous Dopplers are negative, VQ scan showed intermediate probability however this was felt likely to be secondary to her CHF exacerbation and she had no RV strain on echo. Her oxygen requirements had improved but then declined again on 09/11/22 requiring 8-9 L of oxygen to maintain SpO2 of 90%. She has not shown any significant improvement. She is not having any oral intake of food or fluids and due to need of high flow O2 is not a candidate for NG tube, per electroencephalogram technologist the patient does not meet criteria for TPN, and patient's son is declining PEG tube placement.Pt has a poor overall prognosis and this has been discussed with family. Patient has not been improving. Imaging: Renal/bladder ultrasound-cholelithiasis with gallbladder polyp, repeat in 6 months, no hydronephrosis CT head: Hypoattenuation in the right occipital lobe which may represent chronic white matter changes. Remote injuries to the right frontal temporal junction and bilateral basal ganglia, nonspecific white matter changes. Bilateral venous Doppler-no evidence of DVT in both legs Pulmonary perfusion scan-intermediate probability of PE Repeat CXR- Unchanged bilateral infiltrate Physical exam: Patient seen and examined at bedside this morning. Patient with more alert today and awake, she remains nonverbal but did shake her head yes and no to questions asked. Patient denied having any pain or discomfort. She remains on 8 L high flow nasal cannula and is receiving IV diuresis with Lasix 6. Patient has had 1450 mL of output over the past 24 hours and remains on D5W with 20 of K at 50 mL per hour. Potassium remains low at 3.3. Orders placed for replacement. Renal function appears to have plateaued with creatinine maintaining around 2.4. Patient son remains at bedside and reports that he did discuss with his siblings that if his mother had no improvement or worsening of condition he wants to take her home on hospice but is only aggreeable to palliative care at this time because he believes his mother is improving and states that she is more alert and talks to him when we are not there. It was discussed that nutrition is a concern because pt continues to have no oral intake and due to need of high flow O2 is not a candidate for NG tube, per nutrition the patient does not meet criteria for TPN, and patient's son continues to decline PEG tube placement. Patient's son reports the patient has been drinking apple juice. Dietary following. Vital signs reviewed and stable. General: chronically ill appearing. Cachectic appearance. Derm: Skin warm and dry, normal coloration for ethnicity. Head: Atraumatic, normocephalic and symmetric. Eyes: EOMs intact, no lid lag, and anicteric sclera Mouth: no lip lesions, mucus membranes moist Cardiovascular: regular rate and rhythm with normal S1S2, no murmur, positive posterior tibial pulses bilaterally, and cap refill < 2 seconds. Lungs: Respirations tachypneic with increased respiratory effort on 8 L O2 via high flow nasal cannula, mild distress with diaphragmatic breathing, lungs diffuse coarse rhonchi Abdominal: soft, nontender to palpation, no guarding, no appreciable organomegaly Ext: No gross muscle atrophy, no edema, no contractures Neuro: Minimally responsive, awake and shook head yes and no but remains nonverbal at this time. Pupils 2 mm equal bilaterally. Psych: Minimally responsive, awake and was shake head yes or no but nonverbal at this time. Assessment and plan of care: Acute hypoxic respiratory failure, likely multifactorial Type II non-STEMI related to heart failure Elevated d-dimer Acute metabolic encephalopathy Intermediate probability of pulmonary embolism- son refusing anticoagulation due to not wanting to increase suffering Acute exacerbation of diastolic congestive heart failure, ejection fraction 50- 55% -Continue Lasix twice daily -Continue telemetry monitoring -Continue supplemental oxygenation and attempt to wean as patient tolerates -Strict I's and O's, daily weights -Cardiology recommendations: Continue with current care, will follow as needed -Pulmonary has signed off. Echocardiogram with diastolic dysfunction and no signs of right heart strain. Acute kidney injury on chronic kidney disease stage III Hypernatremia, resolved -Nephrology recommendations: Continue with Lasix and D5W -Avoid nephrotoxic agents Dysphagia Severe protein calorie malnutrition -Dietary following -Still not safe for oral intake. Due to need of high flow O2, pt is not a candidate for NG tube, per electroencephalogram technologist the patient does not meet criteria for TPN, and patient's son is declining PEG tube placement.Pt has a poor overall prognosis and this has been discussed with family. Pancytopenia-likely related to breast cancer. Stage IV breast cancer on Ibrance Iron deficiency anemia -IV iron was given 4 doses, completed on 09/12/22. -Patient received 1 unit PRBCs on 09/08/22, hemoglobin has been since stable -Continue to follow CBC -Oncology following Pseudomonas UTI -Completed 7 day course of antibiotics with Zosyn on 09/15/22 Hypokalemia Hypomagnesemia -Monitor and replace and needed Chronic: Prior CVA with residual aphasia and left sided defecits Permanent atrial fibrillation not on anticoagulation secondary to severe GI bleeding Poor overall prognosis. Patient has not been improving. DVT prophylaxis: SCDs Discussed with: Patient, patient's son, and RN Anticipated discharge: pending clinical course Anticipated discharge place: Return home A total of 32 minutes was spent on the care of this complex patient more than 50% of the time was spent in counseling and care coordination. Objective - Vital Signs Vital signs: Vital Signs Temp 97.9 F 09/16/22 08:00 Pulse 84 09/16/22 08:00 Resp 20 09/16/22 08:00 BP 120/74 09/16/22 08:00 Pulse Ox 99 09/16/22 09:12 FiO2 Intake & Output 09/15/22 09/16/22 09/16/22 18:59 06:59 18:59 Output Total 750 700 Balance -750 -700 Output: Urine 750 700 Other: Voiding Method Indwelling Catheter Indwelling Catheter Indwelling Catheter # Bowel Movements 2 - Labs CBC & Chem 7: 09/15/22 09:45 09/16/22 11:39 Labs: Abnormal Lab Results - Last 24 Hours (Table) 09/15/22 09/15/22 Range/Units 09:45 09:45 RBC 2.82 L (3.80-5.40) m/uL Hgb 9.5 L (11.4-16.0) gm/dL Hct 29.1 L (34.0-46.0) % MCV 103.1 H (80.0-100.0) fL RDW 18.9 H (11.5-15.5) % Plt Count 122 L (150-450) k/uL Potassium 3.1 L (3.5-5.1) mmol/L BUN 47 H (7-17) mg/dL Creatinine 2.44 H (0.52-1.04) mg/dL Glucose 103 H (74-99) mg/dL Total Protein 5.1 L (6.3-8.2) g/dL Albumin 2.5 L (3.5-5.0) g/dL
--- NOTE | 2022-09-16 15:33 | P.PN ---
Subjective Progress Note Date: 09/16/22 Principal diagnosis: resp failure, on treatment for breast cancer In f/u today pt stable, she is being cleaned up when seen. Her breathing does not seem as labored today. Objective - Vital Signs Vital signs: Vital Signs Temp 98.2 F 09/16/22 12:00 Pulse 79 09/16/22 12:00 Resp 18 09/16/22 12:00 BP 108/76 09/16/22 12:00 Pulse Ox 94 L 09/16/22 12:00 FiO2 Intake & Output 09/15/22 09/16/22 09/16/22 18:59 06:59 18:59 Output Total 750 700 Balance -750 -700 Output: Urine 750 700 Other: Voiding Method Indwelling Catheter Indwelling Catheter Indwelling Catheter # Bowel Movements 2 1 - Constitutional General appearance: Present: cooperative, no acute distress, thin - EENT Eyes: Present: anicteric sclerae, EOMI ENT: Present: hearing grossly normal - Integumentary Integumentary Comment(s): stage 2 decubitus ulcer around entire coccyx - Psychiatric Psychiatric Comment(s): alert - Labs CBC & Chem 7: 09/15/22 09:45 09/16/22 11:39 Labs: Abnormal Lab Results - Last 24 Hours (Table) 09/16/22 Range/Units 11:39 Potassium 3.3 L (3.5-5.1) mmol/L Assessment and Plan (1) Breast cancer, stage 4 Current Visit: Yes Status: Chronic Priority: Medium Code(s): C50.919 - MALIGNANT NEOPLASM OF UNSP SITE OF UNSPECIFIED FEMALE BREAST SNOMED Code(s): 603337947 Plan: Pt mental status stable. She cont on abx, hydration. Her breathing seems less labored. O2 at 6L Pt breast cancer has been well controlled on oral therapy-her left breast/axilla are look decent. Holding ibrance until any course of therapy and/or abx are completed. Ca15.3 and 27.29 are stable.
[2022-09-16] MEDS: POTASSIUM CHLORIDE 10 MEQ in WATER FOR INJECTION 1 100ML.BAG IVPB SCH ×2 (15:54→15:55)
[2022-09-16] MEDS: LATANOPROST 0.005% OPHTH DROPS 2.5 ML BTL BOTH EYES SCH (21:32)
[2022-09-17 07:49] LABS: Anisocytosis Slight; HGB 9.2 gm/dL (11.4-16.0); Hypochromasia Marked; MCHC 32.8 g/dL (31.0-37.0); MCV 103.6 fL (80.0-100.0); Macrocytosis Moderate; Mean Platelet Volume 9.1; Platelet Count 154 k/uL (150-450); Poikilocytosis Moderate; RDW 18.6 % (11.5-15.5); WBC 5.8 k/uL (3.8-10.6)
[2022-09-17 08:08] LABS: Albumin 2.4 g/dL (3.5-5.0); Calcium 8.5 mg/dL (8.4-10.2); Magnesium 1.9 mg/dL (1.6-2.3); Potassium 3.6 mmol/L (3.5-5.1); Total Bilirubin 0.5 mg/dL (0.2-1.3)
[2022-09-17] MEDS: FUROSEMIDE 10 MG/ML 4 ML VIAL IV SCH ×2 (09:23→21:57)
[2022-09-17] MEDS: METOPROLOL TARTRATE 25 MG TAB PO SCH ×2 (09:50→21:57)
[2022-09-17] MEDS: amLODIPine 5 MG TAB PO SCH (09:50)
[2022-09-17] MEDS: FOLIC ACID 1 MG TAB PO SCH (09:50)
--- NOTE | 2022-09-17 10:36 | P.PN ---
Subjective Progress Note Date: 09/17/22 Principal diagnosis: AMS The patient is an 87-year-old female with a PMH of stage IV breast cancer, CVA with residual left-sided weakness, dementia, hypertension, and hyperlipidemia who was brought into the emergency room, on 09/08/22, by her son due to shortness of breath and worsening mental status. The history was obtained from the son at the bedside due to patient's altered mentation. Son reports that over the past 2 days, the patient's been increasingly unresponsive and appeared to have difficulty breathing. She is currently undergoing chemotherapy and was scheduled to start a new regimen earlier today. The patient is reportedly bedbound and has had a gradual decline in her functional capacity over the past several years after suffering from a large CVA in 2012. Upon arrival of EMS staff, the patient's SpO2 was noted to be 75% on room air. In the emergency room, chest x-ray revealed severe pulmonary edema with cardiomegaly and pleural fluid with RDS right greater than left. EKG reveals sinus rhythm with at 67 bpm with left axis deviation and left bundle branch block. Laboratory evaluation was remarkable for pancytopenia with hemoglobin 6.5 (previously 7.1 on 08/21), troponin 0.7-3, proBNP 45,200,, with UA consistent with UTI. Urine culture positive for pseudomonas. Cardiology an pulmonary services have been following and treating the patient for acute hypoxemic respiratory failure, likely multifactorial, in part related to fluid overload/CHF, plus possible underlying pneumonia.The patient was diuresed and placed on Zoysn. Nephrology has also been consulted. The patient has acute on chronic kidney disease (stage IV) with a baseline creatinine in the range of 1.7-2 secondary to nephrosclerosis. Creatinine on admission was 3.12. The patient also has had negative bilateral lower extremity venous Dopplers. However, her elevated D-dimer is consistent with probable blood clot, and her VQ scan shows intermediate probability of a blood clot. Her son adamantly does not want anticoagulation. She has been on Coumadin in the past for A fib, and did not tolerate this resulting in what sounds like a GI bleed. It was discussed wi th him that if she has a pulmonary embolism that is left untreated this could lead to . He understands the risks versus benefit at this time would not want to be on anticoagulation. 09/10 The patient is lying in bed with her eyes open. She can track with her eyes and nod when asked questions. She will not speak. Her son is at the bedside and provides all information. Palliative care philosophies and services explained to the patient's son. Education provided regarding the patient's m ultiple co-morbidities and poor prognosis. He believes she has a good quality of life and would like to continue with aggressive treatment at this time. Concern was expressed about the patient's nutritional status and possible need for artificial feeding. He stated he would be ok with a dobhoff for a short time, but is not sure he would want a peg tube. 09/11 The patient is lying in bed and her breathing seems more labored today. Her oxygen demands are increased, as she is on 9L NC. Her son and daughter are at the bedside. Her son is in denial that his mom looks worse today. She is le ss responsive than yesterday. He is certain that he is going to take her home. Nutritional status is a concern. He again stated that he would agree to a dobhoff, which is not an option with her oral bleeding. But, he does not want a peg tube at this time. He is unrealistic and says he's doing everything he can just to "keep mom alive". 09/14 The patient is lying in bed. She will open her eyes, turn her head and make eye contact, but does not attempt to respond to any questions. Her son is at the bedside. He thinks his mother is doing better. He was informed that she has not made any progress over the weekend. He stated that the physicians have talked about nutrition. He was updated on her condition and her poor prognosis. She is malnourished. He stated would be alright with a corpak, but would not want a peg tube. He was reminded that a corpak is only temporary and can be pulled out accidentally. He stated he has been through a lot with his mom. She had a corpak before and was able to bounce back. He has been told several times in the last few years that she should put on hospice. He believes she has a good quality of life and is happy. The enjoy watching TV together. 09/15 Patient continue to decline. She is more lethargic and opens eyes to painful stimulus. Today she is on 9L NC. The patient's son is present and states he is still hopeful his mom will turn around. Nutrition continues to be an on going concern. [employer] following. However, the attending does not recommend a NG tube or corpack due to the patient's declining respiratory status and recent bleeding from mouth. The patient's son states he would not want a peg tube. The patient does not meet criteria for TPN. She has been NPO for 7 days now. Hospice philosophies gently brought up to patient's son again. He was quick to decline stating they have recommending that for years and she is still here. 09/16 The patient is awake. She is constantly looking from me to her son, back and forth. She slightly nodded her head to couple questions, but not consistently. Discussed with her son the fact that his mother's condition is not improving. He gets upset. He states he is aware because he is there all the time. It was mentioned to him that hospice might be something to consider at this point. He got even more upset. He thinks the physicians just want her gone because they need the hospital room. We again talked about her overall condition, her lack of nutrition, and her quality of life. He stated that he did not want to keep repeating himself. He has been told for years that he should put his mother in hospice and each time she bounces back. It was suggested that maybe he should look into what services hospice has to offer as a back up plan in the event that she is not able to bounce back this time. He stated right now he is going to take things one day at a time and remain hopeful that she will get better so he can take her home. He would "never leave her here". He was informed that he can take her home either way, hospice could come to their house. He stated he did not want to talk about hospice anymore. He wants to give his mother more time to see if she improves. Objective - Vital Signs Vital signs: Vital Signs Temp 99.3 F 09/17/22 08:00 Pulse 55 L 09/17/22 08:00 Resp 20 09/17/22 08:00 BP 134/67 09/17/22 08:00 Pulse Ox 87 L 09/17/22 08:00 FiO2 Intake & Output 09/16/22 09/17/22 09/17/22 18:59 06:59 18:59 Output Total 400 350 Balance -400 -350 Weight 61.235 kg Output: Urine 400 350 Uretheral (Escalante) 350 Other: Voiding Method Indwelling Catheter Indwelling Catheter Indwelling Catheter # Bowel Movements 1 - Exam General: Well developed, appears stated age. Cachectic, Chronically ill appearing HEENT: Head is atraumatic, normocephalic. Sclerae are clear. Mucus membranes moist. dried blood on right upper lip. CV: Heart regular in rate and rhythm positive S1 and S2. Lungs: Scattered rhonchi through out. Tachypneic and labored respirations. 8L NC Abdomen/GI: Soft. No guarding, rigidity, or abdominal tenderness. Musculoskeletal/ Extremities: Left sided weakness, No gross atrophy. No contractures. +generalized weakness Vascular: Radial pulses equal. 2/4. no peripheral edema Skin: Warm and dry, No rash Neurologic: Awake, occasionally - Labs CBC & Chem 7: 09/17/22 07:10 09/17/22 07:10 Labs: Abnormal Lab Results - Last 24 Hours (Table) 09/16/22 09/17/22 09/17/22 Range/Units 11:39 07:10 07:10 RBC 2.70 L (3.80-5.40) m/uL Hgb 9.2 L (11.4-16.0) gm/dL Hct 28.0 L (34.0-46.0) % MCV 103.6 H (80.0-100.0) fL RDW 18.6 H (11.5-15.5) % Potassium 3.3 L (3.5-5.1) mmol/L BUN 44 H (7-17) mg/dL Creatinine 1.93 H (0.52-1.04) mg/dL Glucose 113 H (74-99) mg/dL Total Protein 5.0 L (6.3-8.2) g/dL Albumin 2.4 L (3.5-5.0) g/dL Assessment and Plan Assessment: Symptoms * Pain - CPOT 2/10 * Fatigue - weak, frail and debilitated * SOB - Yes, continue Zosyn and Lasix * Insomnia - No * N/V - No * Anxiety - No * Depression - No * Confusion - Yes * Agitation - No * Hallucinations - No * Appetite/weight loss - Recent loss of appetite * Dysphagia - Yes, failed swallow eval, NPO * Constipation - No, LBM 11 * Incontinence - Yes, wears briefs and has escalante catheter * Itch - No Plan: Summary/Goals - The patient is awake. It is hard to assess how much she understands. She intermittently follows commands. She only nods her head to answer questions occasionally. She is not making any significant improvements. Her son is at the bedside. He states we are going to continue this course until he decides not to. He was informed that I will be checking in every day with them to see if there are any changes, any questions I cn answer, and to make herman e she is comfortable as possible. He stated that would be fine. Recommendations - Son agreed to OP palliative care at this time, but plans on taking her home with [facility] Advanced Directives - No Code Status - DNR Thank you for this consultation Keren Batista [facility] Palliative Care [facility] [address] Email: [email or web address] Time with Patient: Less than 30
--- NOTE | 2022-09-17 11:45 | CDI ---
Documentation Clarification Form Date: 09/17/2022 11:32:58 AM From: Alia GonsalesMorrisJOHN ho, CCDS Admit Date: 09/08/2022 03:17:00 AM Patient Name: Kajal Kirby Visit Number: [id number] Discharge Date: ATTENTION: The Clinical Documentation Specialists (CDI) and [facility] Coding Staff appreciate your assistance in clarifying documentation. Please respond to the clarification below the line at the bottom and electronically sign. The CDI & [facility] Coding staff will review the response and follow-up if needed. Please note: Queries are made part of the Legal Health Record. If you have any questions, please contact the author of this message via ITS. Dr. Arlene Martin Conflicting documentation has been found in the medical record. As attending physician, please provide clarification. CKD Stage III is documented in the Attending Physician Notes beginning on 09/08 through 09/16. CKD Stage IV is documented in the Nephrology Consult on 09/08 and in subsequent Nephrology Progress Notes through 09/16. History/Risk Factors per the 09/08 H/P: Stage IV Metastatic Breast CA, CVA with residual left side weakness, Dementia and Hypertension. Clinical Indicators: Presented to the ED on 09/08 via EMS with SOB & possible Pneumonia. Low pulse ox and cough with altered mental status. Admit with Pulmonary Edema, IRWIN, CKD, Hypoxia, Anemia, Pancytopenia, Hypokalemia and NSTEMI (later ruled in as Type II WI). LAB: 09/08 BUN 79, Creatinine 3.12. 09/17 BUN 44, Creatinine 1.93 GFR: 09/08: 13. 10: 14. 09/10 15. 09/11: 18. 10: 17. 10: 17. 09/14: 19. 09/15: 17. 09/17: 23. Historical GFR: 08/21/2022: 23.6. 03/25/2022: 18.6. 11/28/2021: 22.2. 10/30/2021: 19.8. 05/08/2021 19.8. 11/28/2020: 21.1. Treatment 09/08: Bladder Scan, Telemetry, Daily weights, I&Os, Field catheter, O2 15% nrb, IV Azithromycin 500 mg 250 mls @ 250 mls/hr x1, IV lasix 40 mg x1, IV Kcl 20 meq 100 mls @ 50 mls/hr x2, IV Lasix 40 mg q12H. Please clarify which diagnosis is most appropriate: [ ] CKD Stage III [ ] CKD Stage IV [ ] Other (please specify): [ ] Unable to determine (Template Last Revised: January 2021) please check with [facility]
--- NOTE | 2022-09-17 11:52 | P.PN ---
Subjective Patient is seen for follow-up for acute kidney injury and hypokalemia. Serum creatinine staying at about 2.4-2.5 mg/dL. down to 1.9 today Maintained on IV Lasix Urine output at 1000 mL for 24 hours Patient does not communicate much. Son present at bedside. No complaints today Objective - Vital Signs Vital signs: Vital Signs Temp 98.1 F 09/17/22 11:41 Pulse 52 L 09/17/22 11:41 Resp 20 09/17/22 11:41 BP 129/59 09/17/22 11:41 Pulse Ox 91 L 09/17/22 11:41 FiO2 Intake & Output 09/16/22 09/17/22 09/17/22 18:59 06:59 18:59 Output Total 400 350 Balance -400 -350 Weight 61.235 kg Output: Urine 400 350 Uretheral (Field) 350 Other: Voiding Method Indwelling Catheter Indwelling Catheter Indwelling Catheter # Bowel Movements 1 - Exam Sleeping, arousable with painful stimuli Examination of the heart S1 and S2 Examination of the lungs decreased breath sounds at the bases Abdomen is soft nontender Examination lower extremities shows no significant edema - Labs CBC & Chem 7: 09/17/22 07:10 09/17/22 07:10 Labs: Abnormal Lab Results - Last 24 Hours (Table) 09/16/22 09/17/22 09/17/22 Range/Units 11:39 07:10 07:10 RBC 2.70 L (3.80-5.40) m/uL Hgb 9.2 L (11.4-16.0) gm/dL Hct 28.0 L (34.0-46.0) % MCV 103.6 H (80.0-100.0) fL RDW 18.6 H (11.5-15.5) % Potassium 3.3 L (3.5-5.1) mmol/L BUN 44 H (7-17) mg/dL Creatinine 1.93 H (0.52-1.04) mg/dL Glucose 113 H (74-99) mg/dL Total Protein 5.0 L (6.3-8.2) g/dL Albumin 2.4 L (3.5-5.0) g/dL Assessment and Plan Assessment: 1. Acute kidney injury secondary to ATN secondary to cardiorenal syndrome and anemia. Creatinine 3.12 on admission - 1.9 today. No hydronephrosis noted on kidney ultrasound. 2. Chronic kidney disease stage IV with baseline creatinine in the range of 1.7-2 secondary to nephrosclerosis. 3. Acute blood loss anemia status post blood transfusion. No active bleeding. Patient is noted to be pancytopenic possibly from underlying malignancy/chemo. Iron deficiency noted. 4. Metastatic breast cancer. Oncology following. 5. Acute hypoxic respiratory failure. 6. Volume overload, had improved but worsened after switching to oral diuretics. Back on IV Lasix now 7. Hypokalemia from diuresis and poor intake. Replaced. 8. Hypernatremia from lack of oral water intake. Improving. 9. Pseudomonas UTI. On antibiotics. Plan: Continue with IV Lasix Overall prognosis guarded
--- NOTE | 2022-09-17 15:07 | P.PN ---
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 Upon arrival to the emergency department patient minimally responsive and nonverbal. She required 15 L nonrebreather mask maintaining saturations in the 90s. CBC revealing pancytopenia with WBC count of 3.6, hemoglobin of 6.5, and platelet count of 134. D-dimer was elevated at 18.20. CMP revealing hyperkalemia with potassium of 3.2 and an acute kidney injury with BUN of 79, creatinine 3.12, and GFR of 13 with baseline creatinine of 1.9. Troponin elevated at 0.723. ProBNP 45,200. Covid PCR, influenza A, influenza B were negative. Urinalysis positive for infection. Chest x-ray revealing moderately severe pulmonary edema with cardiomegaly and pleural fluid possibly resulting from combined congestive heart failure and RDS. Patient admitted under our services with consultations to pul monology, cardiology, nephrology, oncology, and palliative care. Troponins were trended and remained flat. Cardiology felt that she had fluid and heart failure. Echocardiogram was obtained which showed preserved ejection fraction with significant LVH and pulmonary HTN. Diuresis was continued. Patient became hypernatremic with a decreased oral intake. She was started on D5W. She developed significant hypokalemia which required aggressive potassium replacement. She was seen by speech therapy and was unable to tolerate any safe oral intake. She had 2 days where her respiratory status improved, however she again deteriorated. Due to her significantly elevated d-dimer on admission she underwent bilateral lower extremity venous Dopplers are negative, VQ scan showed intermediate probability however this was felt likely to be secondary to her CHF exacerbation and she had no RV strain on echo. Her oxygen requirements had improved but then declined again on 09/11/22 requiring 8-9 L of oxygen to maintain SpO2 of 90%. She has not shown any significant improvement. She is not having any oral intake of food or fluids and due to need of high flow O2 is not a candidate for NG tube, per welding machine operator gas the patient does not meet criteria for TPN, and patient's son is declining PEG tube placement. Pt has a poor overall prognosis and this has been discussed with family. Patient has not been improving. Imaging: Renal/bladder ultrasound-cholelithiasis with gallbladder polyp, repeat in 6 months, no hydronephrosis CT head: Hypoattenuation in the right occipital lobe which may represent chronic white matter changes. Remote injuries to the right frontal temporal junction and bilateral basal ganglia, nonspecific white matter changes. Bilateral venous Doppler-no evidence of DVT in both legs Pulmonary perfusion scan-intermediate probability of PE Repeat CXR- Unchanged bilateral infiltrate Physical exam: Patient seen and examined at bedside this morning. She remains on 8 L O2 via nasal cannula and is again minimally responsive. Today is day 10 of patient not having any oral intake and this was discussed with her son again at bedside.and patient's son reports that he is aware of this and would just like to continue taking things one day at a time. Vital signs reviewed and stable. General: chronically ill appearing. Cachectic appearance. Derm: Skin warm and dry, normal coloration for ethnicity. Head: Atraumatic, normocephalic and symmetric. Eyes: EOMs intact, no lid lag, and anicteric sclera Mouth: no lip lesions, mucus membranes moist Cardiovascular: regular rate and rhythm with normal S1S2, no murmur, positive posterior tibial pulses bilaterally, and cap refill < 2 seconds. Lungs: Respirations tachypneic with increased respiratory effort on 8 L O2 via high flow nasal cannula, mild distress with diaphragmatic breathing, lungs diffuse coarse rhonchi Abdominal: soft, nontender to palpation, no guarding, no appreciable organomegaly Ext: No gross muscle atrophy, no edema, no contractures Neuro: Minimally responsive, remains nonverbal at this time. Pupils 2 mm equal bilaterally. Psych: Minimally responsive, nonverbal at this time. Assessment and plan of care: Acute hypoxic respiratory failure, likely multifactorial Type II non-STEMI related to heart failure Elevated d-dimer Acute metabolic encephalopathy Intermediate probability of pulmonary embolism- son refusing anticoagulation due to not wanting to increase suffering Acute exacerbation of diastolic congestive heart failure, ejection fraction 50- 55% -Continue Lasix twice daily -Continue telemetry monitoring -Continue supplemental oxygenation and attempt to wean as patient tolerates -Strict I's and O's, daily weights -Cardiology recommendations: Continue with current care, will follow as needed -Pulmonary has signed off. Echocardiogram with diastolic dysfunction and no signs of right heart strain. Acute kidney injury on chronic kidney disease stage IV Hypernatremia, resolved -Nephrology recommendations: Continue with Lasix and D5W -Avoid nephrotoxic agents Dysphagia Severe protein calorie malnutrition -Dietary following -Still not safe for oral intake. Due to need of high flow O2, pt is not a candidate for NG tube, per welding machine operator gas the patient does not meet criteria for TPN, and patient's son is declining PEG tube placement.Pt has a poor overall prognosis and this has been discussed with family. Pancytopenia-likely related to breast cancer. Stage IV breast cancer on Ibrance Iron deficiency anemia -IV iron was given 4 doses, completed on 09/12/22. -Patient received 1 unit PRBCs on 09/08/22, hemoglobin has been since stable -Continue to follow CBC -Oncology following Pseudomonas UTI -Completed 7 day course of antibiotics with Zosyn on 09/15/22 Hypokalemia Hypomagnesemia -Monitor and replace and needed Chronic: Prior CVA with residual aphasia and left sided defecits Permanent atrial fibrillation not on anticoagulation secondary to severe GI bleeding Poor overall prognosis. Patient has not been improving. DVT prophylaxis: SCDs Discussed with: Patient, patient's son, and RN Anticipated discharge: pending clinical course Anticipated discharge place: Return home A total of 32 minutes was spent on the care of this complex patient more than 50% of the time was spent in counseling and care coordination. Objective - Vital Signs Vital signs: Vital Signs Temp 98.3 F 09/17/22 04:55 Pulse 82 09/17/22 04:55 Resp 24 09/17/22 04:55 BP 120/74 09/17/22 04:55 Pulse Ox 95 09/17/22 04:55 FiO2 Intake & Output 09/16/22 09/17/22 09/17/22 18:59 06:59 18:59 Output Total 400 Balance -400 Weight 61.235 kg Output: Urine 400 Other: Voiding Method Indwelling Catheter Indwelling Catheter # Bowel Movements 1 - Labs CBC & Chem 7: 09/17/22 07:10 09/17/22 07:10 Labs: Abnormal Lab Results - Last 24 Hours (Table) 09/16/22 09/17/22 Range/Units 11:39 07:10 RBC 2.70 L (3.80-5.40) m/uL Hgb 9.2 L (11.4-16.0) gm/dL Hct 28.0 L (34.0-46.0) % MCV 103.6 H (80.0-100.0) fL RDW 18.6 H (11.5-15.5) % Potassium 3.3 L (3.5-5.1) mmol/L
[2022-09-17] MEDS: DEXTROSE 5% IN WATER 1,000 ML with POTASSIUM CHLORIDE 20 MEQ IV SCH (19:40)
[2022-09-17] MEDS: LATANOPROST 0.005% OPHTH DROPS 2.5 ML BTL BOTH EYES SCH (21:57)
[2022-09-18 09:05] LABS: Calcium 8.4 mg/dL (8.4-10.2); Potassium 3.3 mmol/L (3.5-5.1)
[2022-09-18] MEDS: amLODIPine 5 MG TAB PO SCH (09:24)
[2022-09-18] MEDS: METOPROLOL TARTRATE 25 MG TAB PO SCH ×2 (09:24→21:18)
[2022-09-18] MEDS: FOLIC ACID 1 MG TAB PO SCH (09:24)
[2022-09-18] MEDS: FUROSEMIDE 10 MG/ML 4 ML VIAL IV SCH ×2 (09:26→21:17)
[2022-09-18] MEDS: POTASSIUM CHLORIDE 10 MEQ in WATER FOR INJECTION 1 100ML.BAG IVPB SCH ×4 (10:22→15:27)
--- NOTE | 2022-09-18 10:32 | P.PN ---
Subjective Progress Note Date: 09/18/22 Principal diagnosis: AMS The patient is an 87-year-old female with a PMH of stage IV breast cancer, CVA with residual left-sided weakness, dementia, hypertension, and hyperlipidemia who was brought into the emergency room, on 09/08/22, by her son due to shortness of breath and worsening mental status. The history was obtained from the son at the bedside due to patient's altered mentation. Son reports that over the past 2 days, the patient's been increasingly unresponsive and appeared to have difficulty breathing. She is currently undergoing chemotherapy and was scheduled to start a new regimen earlier today. The patient is reportedly bedbound and has had a gradual decline in her functional capacity over the past several years after suffering from a large CVA in 2012. Upon arrival of EMS staff, the patient's SpO2 was noted to be 75% on room air. In the emergency room, chest x-ray revealed severe pulmonary edema with cardiomegaly and pleural fluid with RDS right greater than left. EKG reveals sinus rhythm with at 67 bpm with left axis deviation and left bundle branch block. Laboratory evaluation was remarkable for pancytopenia with hemoglobin 6.5 (previously 7.1 on 08/21), troponin 0.7-3, proBNP 45,200,, with UA consistent with UTI. Urine culture positive for pseudomonas. Cardiology an pulmonary services have been following and treating the patient for acute hypoxemic respiratory failure, likely multifactorial, in part related to fluid overload/CHF, plus possible underlying pneumonia.The patient was diuresed and placed on Zoysn. Nephrology has also been consulted. The patient has acute on chronic kidney disease (stage IV) with a baseline creatinine in the range of 1.7-2 secondary to nephrosclerosis. Creatinine on admission was 3.12. The patient also has had negative bilateral lower extremity venous Dopplers. However, her elevated D-dimer is consistent with probable blood clot, and her VQ scan shows intermediate probability of a blood clot. Her son adamantly does not want anticoagulation. She has been on Coumadin in the past for A fib, and did not tolerate this resulting in what sounds like a GI bleed. It was discussed wi th him that if she has a pulmonary embolism that is left untreated this could lead to . He understands the risks versus benefit at this time would not want to be on anticoagulation. 09/10 The patient is lying in bed with her eyes open. She can track with her eyes and nod when asked questions. She will not speak. Her son is at the bedside and provides all information. Palliative care philosophies and services explained to the patient's son. Education provided regarding the patient's m ultiple co-morbidities and poor prognosis. He believes she has a good quality of life and would like to continue with aggressive treatment at this time. Concern was expressed about the patient's nutritional status and possible need for artificial feeding. He stated he would be ok with a dobhoff for a short time, but is not sure he would want a peg tube. 09/11 The patient is lying in bed and her breathing seems more labored today. Her oxygen demands are increased, as she is on 9L NC. Her son and daughter are at the bedside. Her son is in denial that his mom looks worse today. She is le ss responsive than yesterday. He is certain that he is going to take her home. Nutritional status is a concern. He again stated that he would agree to a dobhoff, which is not an option with her oral bleeding. But, he does not want a peg tube at this time. He is unrealistic and says he's doing everything he can just to "keep mom alive". 09/14 The patient is lying in bed. She will open her eyes, turn her head and make eye contact, but does not attempt to respond to any questions. Her son is at the bedside. He thinks his mother is doing better. He was informed that she has not made any progress over the weekend. He stated that the physicians have talked about nutrition. He was updated on her condition and her poor prognosis. She is malnourished. He stated would be alright with a corpak, but would not want a peg tube. He was reminded that a corpak is only temporary and can be pulled out accidentally. He stated he has been through a lot with his mom. She had a corpak before and was able to bounce back. He has been told several times in the last few years that she should put on hospice. He believes she has a good quality of life and is happy. The enjoy watching TV together. 09/15 Patient continue to decline. She is more lethargic and opens eyes to painful stimulus. Today she is on 9L NC. The patient's son is present and states he is still hopeful his mom will turn around. Nutrition continues to be an on going concern. [employer] following. However, the attending does not recommend a NG tube or corpack due to the patient's declining respiratory status and recent bleeding from mouth. The patient's son states he would not want a peg tube. The patient does not meet criteria for TPN. She has been NPO for 7 days now. Hospice philosophies gently brought up to patient's son again. He was quick to decline stating they have recommending that for years and she is still here. 09/16 The patient is awake. She is constantly looking from me to her son, back and forth. She slightly nodded her head to couple questions, but not consistently. Discussed with her son the fact that his mother's condition is not improving. He gets upset. He states he is aware because he is there all the time. It was mentioned to him that hospice might be something to consider at this point. He got even more upset. He thinks the physicians just want her gone because they need the hospital room. We again talked about her overall condition, her lack of nutrition, and her quality of life. He stated that he did not want to keep repeating himself. He has been told for years that he should put his mother in hospice and each time she bounces back. It was suggested that maybe he should look into what services hospice has to offer as a back up plan in the event that she is not able to bounce back this time. He stated right now he is going to take things one day at a time and remain hopeful that she will get better so he can take her home. He would "never leave her here". He was informed that he can take her home either way, hospice could come to their house. He stated he did not want to talk about hospice anymore. He wants to give his mother more time to see if she improves. 09/17 The patient is awake. It is hard to assess how much she understands. She i ntermittently follows commands. She only nods her head to answer questions occasionally. She is not making any significant improvements. Her son is at the bedside. He states we are going to continue this course until he decides not to. He was informed that I will be checking in every day with them to see if there are any changes, any questions I cn answer, and to make sure she is comfortable as possible. He stated that would be fine. Objective - Vital Signs Vital signs: Vital Signs Temp 98.8 F 09/18/22 08:20 Pulse 88 09/18/22 08:20 Resp 22 09/18/22 08:20 BP 127/77 09/18/22 08:20 Pulse Ox 92 L 09/18/22 08:20 FiO2 Intake & Output 09/17/22 09/18/22 09/18/22 18:59 06:59 18:59 Output Total 350 625 Balance -350 -625 Output: Urine 350 625 Uretheral (Escalante) 350 Other: Voiding Method Indwelling Catheter Indwelling Catheter Indwelling Catheter # Bowel Movements 1 - Exam General: Well developed, appears stated age. Cachectic, Chronically ill appearing HEENT: Head is atraumatic, normocephalic. Sclerae are clear. Mucus membranes dry. Dried blood on right upper lip. CV: Heart regular in rate and rhythm positive S1 and S2. Lungs: Scattered rhonchi through out. Tachypneic and labored respirations. 10L NC Abdomen/GI: Soft. No guarding, rigidity, or abdominal tenderness. Musculoskeletal/ Extremities: Left sided weakness, No gross atrophy. No contractures. + generalized weakness Vascular: Radial pulses equal. 2/4. no peripheral edema Skin: Warm and dry, No rash Neurologic: Awake, occasionally nods her head to questions - Labs CBC & Chem 7: 09/17/22 07:10 09/18/22 08:23 Labs: Abnormal Lab Results - Last 24 Hours (Table) 09/18/22 Range/Units 08:23 Sodium 135 L (137-145) mmol/L Potassium 3.3 L (3.5-5.1) mmol/L BUN 43 H (7-17) mg/dL Creatinine 1.85 H (0.52-1.04) mg/dL Glucose 124 H (74-99) mg/dL Assessment and Plan Assessment: Symptoms * Pain - CPOT 2/10 * Fatigue - weak, frail and debilitated * SOB - Yes, continue Zosyn and Lasix * Insomnia - No * N/V - No * Anxiety - No * Depression - No * Confusion - Yes * Agitation - No * Hallucinations - No * Appetite/weight loss - Malnutrition, not a candidate for NG tube due to high O2 demands, does not meet TPN criteria, son does not want a peg tube * Dysphagia - Yes, failed swallow eval, NPO * Constipation - No, LBM 09/17 * Incontinence - Yes, wears briefs and has escalante catheter * Itch - No Plan: Summary/Goals - The patient is awake. Again, she nods her head intermittently to some questions. She is non verbal. She has a pacifier in her mouth. Her son is at the bedside and states he has been giving her water through it a couple cc's at a time. He states that he just might have to take her home. He was reminded that she is currently on 10LHF NC. He is frustrated and thinks that the O2 is not weaned down frequent enough. It was explained that through her stay the O2 has been weaned down several times but she did not tolerate it. He thinks he can get her better at home. He stated multiple times that he does not want his mother to . However, she is not improving despite our care. Ethics consulted. Recommendations - Son agreed to OP palliative care at this time, but plans on taking her home with [facility] Advanced Directives - No Code Status - DNR Thank you for this consultation Keren Batista [facility]- Palliative Care Spectralink [phone] Email: [email or web address] Time with Patient: Greater than 30
--- NOTE | 2022-09-18 11:02 | P.PN ---
Subjective Patient is seen for follow-up for acute kidney injury and hypokalemia. Serum creatinine staying at about 2.4-2.5 mg/dL. down to 1.8 today Maintained on IV Lasix Urine output at 975 mL for 24 hours Patient does not communicate much. Son present at bedside. No complaints today Objective - Vital Signs Vital signs: Vital Signs Temp 98.8 F 09/18/22 08:20 Pulse 88 09/18/22 08:20 Resp 22 09/18/22 08:20 BP 127/77 09/18/22 08:20 Pulse Ox 92 L 09/18/22 08:20 FiO2 Intake & Output 09/17/22 09/18/22 09/18/22 18:59 06:59 18:59 Output Total 350 625 Balance -350 -625 Output: Urine 350 625 Uretheral (Field) 350 Other: Voiding Method Indwelling Catheter Indwelling Catheter Indwelling Catheter # Bowel Movements 1 - Exam Sleeping, arousable with painful stimuli Examination of the heart S1 and S2 Examination of the lungs decreased breath sounds at the bases Abdomen is soft nontender Examination lower extremities shows no significant edema - Labs CBC & Chem 7: 09/17/22 07:10 09/18/22 08:23 Labs: Abnormal Lab Results - Last 24 Hours (Table) 09/18/22 Range/Units 08:23 Sodium 135 L (137-145) mmol/L Potassium 3.3 L (3.5-5.1) mmol/L BUN 43 H (7-17) mg/dL Creatinine 1.85 H (0.52-1.04) mg/dL Glucose 124 H (74-99) mg/dL Assessment and Plan Assessment: 1. Acute kidney injury secondary to ATN secondary to cardiorenal syndrome and anemia. Creatinine 3.12 on admission - 1.8 today. No hydronephrosis noted on kidney ultrasound. 2. Chronic kidney disease stage IV with baseline creatinine in the range of 1.7-2 secondary to nephrosclerosis. 3. Acute blood loss anemia status post blood transfusion. No active bleeding. Patient is noted to be pancytopenic possibly from underlying malignancy/chemo. Iron deficiency noted. 4. Metastatic breast cancer. Oncology following. 5. Acute hypoxic respiratory failure. 6. Volume overload, had improved but worsened after switching to oral diuretics. Back on IV Lasix now 7. Hypokalemia from diuresis and poor intake. Replaced. 8. Hypernatremia from lack of oral water intake. Improving. 9. Pseudomonas UTI. On antibiotics. Plan: Continue with IV Lasix Overall prognosis guarded
--- NOTE | 2022-09-18 13:46 | P.PN ---
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 Upon arrival to the emergency department patient minimally responsive and nonverbal. She required 15 L nonrebreather mask maintaining saturations in the 90s. CBC revealing pancytopenia with WBC count of 3.6, hemoglobin of 6.5, and platelet count of 134. D-dimer was elevated at 18.20. CMP revealing hyperkalemia with potassium of 3.2 and an acute kidney injury with BUN of 79, creatinine 3.12, and GFR of 13 with baseline creatinine of 1.9. Troponin elevated at 0.723. ProBNP 45,200. Covid PCR, influenza A, influenza B were negative. Urinalysis positive for infection. Chest x-ray revealing moderately severe pulmonary edema with cardiomegaly and pleural fluid possibly resulting from combined congestive heart failure and RDS. Patient admitted under our services with consultations to pul monology, cardiology, nephrology, oncology, and palliative care. Troponins were trended and remained flat. Cardiology felt that she had fluid and heart failure. Echocardiogram was obtained which showed preserved ejection fraction with significant LVH and pulmonary HTN. Diuresis was continued. Patient became hypernatremic with a decreased oral intake. She was started on D5W. She developed significant hypokalemia which required aggressive potassium replacement. She was seen by speech therapy and was unable to tolerate any safe oral intake. She had 2 days where her respiratory status improved, however she again deteriorated. Due to her significantly elevated d-dimer on admission she underwent bilateral lower extremity venous Dopplers are negative, VQ scan showed intermediate probability however this was felt likely to be secondary to her CHF exacerbation and she had no RV strain on echo. Her oxygen requirements had improved but then declined again on 09/11/22 requiring 8-9 L of oxygen to maintain SpO2 of 90%. She has not shown any significant improvement. She is not having any oral intake of food or fluids and due to need of high flow O2 is not a candidate for NG tube, per certified technician the patient does not meet criteria for TPN, and patient's son is declining PEG tube placement. Pt has a poor overall prognosis and this has been discussed with family. Patient has not been improving. Imaging: Renal/bladder ultrasound-cholelithiasis with gallbladder polyp, repeat in 6 months, no hydronephrosis CT head: Hypoattenuation in the right occipital lobe which may represent chronic white matter changes. Remote injuries to the right frontal temporal junction and bilateral basal ganglia, nonspecific white matter changes. Bilateral venous Doppler-no evidence of DVT in both legs Pulmonary perfusion scan-intermediate probability of PE Repeat CXR- Unchanged bilateral infiltrate Physical exam: Patient seen and examined at bedside this morning. Overall, patient's condition declining. She is currently on 10 L high flow nasal cannula and remains lethargic and nonverbal. Patient opens eyes but does not respond. Patient's son remains adamant that patient does respond to him when hospital staff is not present. Patient's son very adamant that he wants to take his mother home. I discussed with him that I could not discharge patient unless he was taking her home under hospice care and at this time his mother's condition continues to decline showing no improvement and today is day 11 of no oral intake and no nutritional supplements. Pt's son stated that "I am fine with taking her home on hospice when the time is right because I think she will do better at home, but she is not ready for hospice at this time because she is doing better and is responding, you guys just are not seeing it." Palliative care following and has also consulted Ethics committee at this time. Vital signs reviewed and stable. General: chronically ill appearing. Cachectic appearance. Derm: Skin warm and dry, normal coloration for ethnicity. Head: Atraumatic, normocephalic and symmetric. Eyes: EOMs intact, no lid lag, and anicteric sclera Mouth: no lip lesions, mucus membranes moist Cardiovascular: regular rate and rhythm with normal S1S2, no murmur, positive posterior tibial pulses bilaterally, and cap refill < 2 seconds. Lungs: Respirations tachypneic with increased respiratory effort on 10 L O2 via high flow nasal cannula, mild distress with diaphragmatic breathing, lungs diff use coarse rhonchi Abdominal: soft, nontender to palpation, no guarding, no appreciable organomegal y Ext: No gross muscle atrophy, no edema, no contractures Neuro: Minimally responsive, remains nonverbal at this time. Pupils 2 mm equal bilaterally. Psych: Minimally responsive, nonverbal at this time. Assessment and plan of care: Acute hypoxic respiratory failure, likely multifactorial Type II non-STEMI related to heart failure Elevated d-dimer Acute metabolic encephalopathy Intermediate probability of pulmonary embolism- son refusing anticoagulation due to not wanting to increase suffering Acute exacerbation of diastolic congestive heart failure, ejection fraction 50- 55% -Continue Lasix twice daily -Continue telemetry monitoring -Continue supplemental oxygenation and attempt to wean as patient tolerates -Strict I's and O's, daily weights -Cardiology recommendations: Continue with current care, will follow as needed -Pulmonary has signed off. Echocardiogram with diastolic dysfunction and no signs of right heart strain. Acute kidney injury on chronic kidney disease stage IV, improving Hypernatremia, resolved -Nephrology recommendations: Continue with Lasix and D5W -Avoid nephrotoxic agents Dysphagia Severe protein calorie malnutrition -Dietary following -Still not safe for oral intake. Due to need of high flow O2, pt is not a cand idate for NG tube, per certified technician the patient does not meet criteria for TPN, and patient's son is declining PEG tube placement.Pt has a poor overall prognosis and this has been discussed with family. Pancytopenia-likely related to breast cancer. Stage IV breast cancer on Ibrance Iron deficiency anemia -IV iron was given 4 doses, completed on 09/12/22. -Patient received 1 unit PRBCs on 09/08/22, hemoglobin has been since stable -Continue to follow CBC -Oncology following Pseudomonas UTI -Completed 7 day course of antibiotics with Zosyn on 09/15/22 Hypokalemia Hypomagnesemia -Monitor and replace and needed Chronic: Prior CVA with residual aphasia and left sided defecits Permanent atrial fibrillation not on anticoagulation secondary to severe GI bleeding Poor overall prognosis. Patient has not been improving. DVT prophylaxis: SCDs Discussed with: Patient, patient's son, and RN Anticipated discharge: pending clinical course Anticipated discharge place: Return home A total of 34 minutes was spent on the care of this complex patient more than 50% of the time was spent in counseling and care coordination. I reviewed the documentation as provided by the JAYSON above, who is the original author of this note. I agree with the documented assessment and plan, with the following changes: none Objective - Vital Signs Vital signs: Vital Signs Temp 98.9 F 09/18/22 04:35 Pulse 85 09/18/22 04:35 Resp 24 09/18/22 04:35 BP 115/78 09/18/22 04:35 Pulse Ox 94 L 09/18/22 04:35 FiO2 Intake & Output 09/17/22 09/18/22 09/18/22 18:59 06:59 18:59 Output Total 350 625 Balance -350 -625 Output: Urine 350 625 Uretheral (Field) 350 Other: Voiding Method Indwelling Catheter Indwelling Catheter # Bowel Movements 1 - Labs CBC & Chem 7: 09/17/22 07:10 09/18/22 08:23 Labs: Abnormal Lab Results - Last 24 Hours (Table) 09/18/22 Range/Units 08:23 Sodium 135 L (137-145) mmol/L Potassium 3.3 L (3.5-5.1) mmol/L BUN 43 H (7-17) mg/dL Creatinine 1.85 H (0.52-1.04) mg/dL Glucose 124 H (74-99) mg/dL
[2022-09-18 20:40] VITALS: RESP 20
[2022-09-18] MEDS: DEXTROSE 5% IN WATER 1,000 ML with POTASSIUM CHLORIDE 20 MEQ IV SCH (21:17)
[2022-09-18] MEDS: LATANOPROST 0.005% OPHTH DROPS 2.5 ML BTL BOTH EYES SCH (21:18)
[2022-09-19] MEDS: FOLIC ACID 1 MG TAB PO SCH (09:40)
[2022-09-19] MEDS: amLODIPine 5 MG TAB PO SCH (09:40)
[2022-09-19] MEDS: METOPROLOL TARTRATE 25 MG TAB PO SCH ×2 (09:41→20:32)
[2022-09-19] MEDS: FUROSEMIDE 10 MG/ML 4 ML VIAL IV SCH ×2 (09:41→20:32)
--- NOTE | 2022-09-19 13:56 | P.PN ---
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 Upon arrival to the emergency department patient minimally responsive and nonverbal. She required 15 L nonrebreather mask maintaining saturations in the 90s. CBC revealing pancytopenia with WBC count of 3.6, hemoglobin of 6.5, and platelet count of 134. D-dimer was elevated at 18.20. CMP revealing hyperkalemia with potassium of 3.2 and an acute kidney injury with BUN of 79, creatinine 3.12, and GFR of 13 with baseline creatinine of 1.9. Troponin elevated at 0.723. ProBNP 45,200. Covid PCR, influenza A, influenza B were negative. Urinalysis positive for infection. Chest x-ray revealing moderately severe pulmonary edema with cardiomegaly and pleural fluid possibly resulting from combined congestive heart failure and RDS. Patient admitted under our services with consultations to pul monology, cardiology, nephrology, oncology, and palliative care. Troponins were trended and remained flat. Cardiology felt that she had fluid and heart failure. Echocardiogram was obtained which showed preserved ejection fraction with significant LVH and pulmonary HTN. Diuresis was continued. Patient became hypernatremic with a decreased oral intake. She was started on D5W. She developed significant hypokalemia which required aggressive potassium replacement. She was seen by speech therapy and was unable to tolerate any safe oral intake. She had 2 days where her respiratory status improved, however she again deteriorated. Due to her significantly elevated d-dimer on admission she underwent bilateral lower extremity venous Dopplers are negative, VQ scan showed intermediate probability however this was felt likely to be secondary to her CHF exacerbation and she had no RV strain on echo. Her oxygen requirements had improved but then declined again on 09/11/22 requiring 8-9 L of oxygen to maintain SpO2 of 90%. She has not shown any significant improvement. She is not having any oral intake of food or fluids and due to need of high flow O2 is not a candidate for NG tube, per estate attorney the patient does not meet criteria for TPN, and patient's son is declining PEG tube placement. Pt has a poor overall prognosis and this has been discussed with family. Patient has not been improving. Imaging: Renal/bladder ultrasound-cholelithiasis with gallbladder polyp, repeat in 6 months, no hydronephrosis CT head: Hypoattenuation in the right occipital lobe which may represent chronic white matter changes. Remote injuries to the right frontal temporal junction and bilateral basal ganglia, nonspecific white matter changes. Bilateral venous Doppler-no evidence of DVT in both legs Pulmonary perfusion scan-intermediate probability of PE Repeat CXR- Unchanged bilateral infiltrate Physical exam: Patient seen and examined at bedside this morning. Overall, patient's condition continues to show no improvement. Patient lethargic and nonverbal, she is currently on 7 L high flow nasal cannula with SpO2 of 92%. Lung sounds remain coarse with diffuse rhonchi throughout. Patient's son and daughter were at bedside this morning. Had long discussion with both regarding concerns of patient's lack of nutrition as it has been 12 days with no oral intake or nutritional supplements. Patient son and daughter verbalizing understanding of this and state they will make a final determination on whether or not they want to take their mom home on hospice based upon how she is doing on Wednesday. Patient's son and daughter report that they still strongly believe that their mother is improving but also verbalized understanding of our concerns regarding her current condition. Palliative care following and has also consulted Ethics committee as well. Vital signs reviewed and stable. General: chronically ill appearing. Cachectic appearance. Derm: Skin warm and dry, normal coloration for ethnicity. Head: Atraumatic, normocephalic and symmetric. Eyes: EOMs intact, no lid lag, and anicteric sclera Mouth: no lip lesions, mucus membranes moist Cardiovascular: regular rate and rhythm with normal S1S2, systolic murmur, positive posterior tibial pulses bilaterally, and cap refill < 2 seconds. Lungs: Respirations even, regular, and unlabored with a slight increased respiratory effor. Patient remains on 7 L O2 via high flow nasal cannula, lungs with diffuse coarse rhonchi throughout. Abdominal: soft, nontender to palpation, no guarding, no appreciable organomegaly Ext: No gross muscle atrophy, no edema, no contractures Neuro: Minimally responsive, remains nonverbal at this time. Psych: Minimally responsive, nonverbal at this time. Assessment and plan of care: Acute hypoxic respiratory failure, likely multifactorial Type II non-STEMI related to heart failure Elevated d-dimer Acute metabolic encephalopathy Intermediate probability of pulmonary embolism- son refusing anticoagulation due to not wanting to increase suffering Acute exacerbation of diastolic congestive heart failure, ejection fraction 50- 55% -Continue Lasix twice daily -Continue telemetry monitoring -Continue supplemental oxygenation and attempt to wean as patient tolerates -Strict I's and O's, daily weights -Cardiology recommendations: Continue with current care, will follow as needed -Pulmonary has signed off. Echocardiogram with diastolic dysfunction and no signs of right heart strain. Acute kidney injury on chronic kidney disease stage IV, improving Hypernatremia, resolved -Nephrology recommendations: Continue with Lasix and D5W -Avoid nephrotoxic agents Dysphagia Severe protein calorie malnutrition -Dietary following -Still not safe for oral intake. Due to need of high flow O2, pt is not a candidate for NG tube, per estate attorney the patient does not meet criteria for TPN, and patient's son is declining PEG tube placement. Pt has a poor overall prognosis and this has been discussed with family. Pancytopenia-likely related to breast cancer. Stage IV breast cancer on Ibrance Iron deficiency anemia -IV iron was given 4 doses, completed on 09/12/22. -Patient received 1 unit PRBCs on 09/08/22, hemoglobin has been since stable -Continue to follow CBC -Oncology following Pseudomonas UTI -Completed 7 day course of antibiotics with Zosyn on 09/15/22 Hypokalemia Hypomagnesemia -Monitor and replace and needed Chronic: Prior CVA with residual aphasia and left sided defecits Permanent atrial fibrillation not on anticoagulation secondary to severe GI bleeding Poor overall prognosis. Patient has not been improving. DVT prophylaxis: SCDs Discussed with: Patient, patient's son, and RN Anticipated discharge: pending clinical course Anticipated discharge place: Return home A total of 34 minutes was spent on the care of this complex patient more than 50% of the time was spent in counseling and care coordination. Objective - Vital Signs Vital signs: Vital Signs Temp 97.9 F 09/19/22 00:00 Pulse 90 09/19/22 00:00 Resp 20 09/19/22 01:30 BP 109/81 09/19/22 00:00 Pulse Ox 92 L 09/19/22 00:00 FiO2 Intake & Output 09/18/22 09/19/22 09/19/22 18:59 06:59 18:59 Other: Voiding Method Indwelling Catheter Indwelling Catheter - Labs CBC & Chem 7: 09/17/22 07:10 09/18/22 08:23
--- NOTE | 2022-09-19 17:08 | P.PN ---
Subjective Progress Note Date: 09/19/22 Follow-up for acute kidney injury. Feels better, tolerating diet. Wants to go home. Objective - Vital Signs Vital signs: Vital Signs Temp 99.3 F 09/19/22 16:00 Pulse 63 09/19/22 16:00 Resp 20 09/19/22 16:00 BP 107/67 09/19/22 16:00 Pulse Ox 92 L 09/19/22 16:00 FiO2 Intake & Output 09/18/22 09/19/22 09/19/22 18:59 06:59 18:59 Intake Total 0 Output Total 275 Balance -275 Weight 61.235 kg Intake: Oral 0 Output: Urine 275 Other: Voiding Method Indwelling Catheter Indwelling Catheter Indwelling Catheter - Exam No acute distress S1-S2 heard Lungs clear Abdomen soft No edema - Labs CBC & Chem 7: 09/17/22 07:10 09/18/22 08:23 Assessment and Plan Assessment: #1 nonoliguric acute kidney injury secondary to hemodynamic ATN. Peak crea tinine was 3.12 MG per DL. #2 CK D stage IV suspected nephrosclerosis baseline creatinine 1.8 MG per DL. #3 acute blood loss anemia status post PRBC #4 metastatic breast cancer #5 hypokalemia Plan: #1 renal function stable around baseline. #2 stop IV fluids #3 replace KCl #4 labs in the morning
[2022-09-19] MEDS ORDERED: POTASSIUM CHLORIDE ER 20 MEQ TAB.ER PO SCH (17:15)
[2022-09-19] MEDS: DEXTROSE 5% IN WATER 1,000 ML with POTASSIUM CHLORIDE 20 MEQ IV SCH (17:21)
[2022-09-19] MEDS ORDERED: DEXTROSE 5% IN WATER 1,000 ML IV SCH (17:30)
[2022-09-19] MEDS: LATANOPROST 0.005% OPHTH DROPS 2.5 ML BTL BOTH EYES SCH (20:32)
[2022-09-20 08:27] LABS: Albumin 2.5 g/dL (3.5-5.0); Calcium 8.2 mg/dL (8.4-10.2); Magnesium 1.6 mg/dL (1.6-2.3); Potassium 3.7 mmol/L (3.5-5.1); Total Bilirubin 0.7 mg/dL (0.2-1.3); Total Protein 5.5 g/dL (6.3-8.2)
[2022-09-20] MEDS: amLODIPine 5 MG TAB PO SCH (09:02)
[2022-09-20] MEDS: METOPROLOL TARTRATE 25 MG TAB PO SCH (09:02)
[2022-09-20] MEDS: FUROSEMIDE 10 MG/ML 4 ML VIAL IV SCH (09:02)
[2022-09-20] MEDS: FOLIC ACID 1 MG TAB PO SCH (09:02)
[2022-09-20 09:09] VITALS: TEMP 99.5
[2022-09-20 09:09] LABS: Anisocytosis Slight; HCT 33.1 % (34.0-46.0); HGB 10.5 gm/dL (11.4-16.0); Hypochromasia Moderate; MCH 32.2 pg (25.0-35.0); MCHC 31.6 g/dL (31.0-37.0); MCV 101.9 fL (80.0-100.0); Macrocytosis Moderate; Mean Platelet Volume 8.9; Platelet Count 250 k/uL (150-450); Poikilocytosis Moderate; RBC 3.25 m/uL (3.80-5.40); RDW 17.7 % (11.5-15.5); WBC 7.3 k/uL (3.8-10.6)
--- NOTE | 2022-09-20 11:52 | P.PN ---
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 Upon arrival to the emergency department patient minimally responsive and nonverbal. She required 15 L nonrebreather mask maintaining saturations in the 90s. CBC revealing pancytopenia with WBC count of 3.6, hemoglobin of 6.5, and platelet count of 134. D-dimer was elevated at 18.20. CMP revealing hyperkalemia with potassium of 3.2 and an acute kidney injury with BUN of 79, creatinine 3.12, and GFR of 13 with baseline creatinine of 1.9. Troponin elevated at 0.723. ProBNP 45,200. Covid PCR, influenza A, influenza B were negative. Urinalysis positive for infection. Chest x-ray revealing moderately severe pulmonary edema with cardiomegaly and pleural fluid possibly resulting from combined congestive heart failure and RDS. Patient admitted under our services with consultations to pul monology, cardiology, nephrology, oncology, and palliative care. Troponins were trended and remained flat. Cardiology felt that she had fluid and heart failure. Echocardiogram was obtained which showed preserved ejection fraction with significant LVH and pulmonary HTN. Diuresis was continued. Patient became hypernatremic with a decreased oral intake. She was started on D5W. She developed significant hypokalemia which required aggressive potassium replacement. She was seen by speech therapy and was unable to tolerate any safe oral intake. She had 2 days where her respiratory status improved, however she again deteriorated. Due to her significantly elevated d-dimer on admission she underwent bilateral lower extremity venous Dopplers are negative, VQ scan showed intermediate probability however this was felt likely to be secondary to her CHF exacerbation and she had no RV strain on echo. Her oxygen requirements had improved but then declined again on 09/11/22 requiring 8-9 L of oxygen to maintain SpO2 of 90%. She has not shown any significant improvement. She is not having any oral intake of food or fluids and due to need of high flow O2 is not a candidate for NG tube, per salvage laborer the patient does not meet criteria for TPN, and patient's son is declining PEG tube placement. Pt has a poor overall prognosis and this has been discussed with family. Patient has not been improving. Imaging: Renal/bladder ultrasound-cholelithiasis with gallbladder polyp, repeat in 6 months, no hydronephrosis CT head: Hypoattenuation in the right occipital lobe which may represent chronic white matter changes. Remote injuries to the right frontal temporal junction and bilateral basal ganglia, nonspecific white matter changes. Bilateral venous Doppler-no evidence of DVT in both legs Pulmonary perfusion scan-intermediate probability of PE Repeat CXR- Unchanged bilateral infiltrate Echocardiogram with diastolic dysfunction and no signs of right heart strain. Physical exam: Patient seen and examined at bedside this morning. Patient continues to show no improvement and only further deterioration in responsiveness. She is on 7 L high flow nasal cannula. Over the past 24 hours patient's bilateral upper extremities becoming very edematous and boggy worse on right upper extremity, discussed with patient's son at bedside whether or not a Doppler should be completed to rule out blood clot and he has chosen not to further evaluate with Doppler stating that if there was a blood clot they again do not want treatment. Pt's son then stating that he had a long talk with his sister and they have decided to take their mother home on hospice at this time. Patient's son reports he has a hospital bed and oxygen already available at home and if possible they would like to take her home on hospice today because she deserves to be able to in her own home like his dad did. Order placed for hospice at this time and will attempt to arrange set up for home hospice care later today. Vital signs reviewed and stable. General: chronically ill appearing. Cachectic appearance. Derm: Skin warm and dry, normal coloration for ethnicity. Head: Atraumatic, normocephalic and symmetric. Eyes: EOMs intact, no lid lag, and anicteric sclera Mouth: no lip lesions, mucus membranes moist Cardiovascular: regular rate and rhythm with normal S1S2, systolic murmur, positive posterior tibial pulses bilaterally, and cap refill < 2 seconds. Lungs: Respirations even, regular, and unlabored with a slight increased respiratory effor. Patient remains on 7 L O2 via high flow nasal cannula, lungs with diffuse coarse rhonchi throughout. Abdominal: soft, nontender to palpation, no guarding, no appreciable organomegaly Ext: No gross muscle atrophy, no lower extremity edema, no contractures. Bilateral upper extremities edematous, worse on right. Neuro: Minimally responsive, remains nonverbal at this time. Psych: Minimally responsive, nonverbal at this time. Assessment and plan of care: Acute hypoxic respiratory failure, likely multifactorial Type II non-STEMI related to heart failure Elevated d-dimer Acute metabolic encephalopathy Intermediate probability of pulmonary embolism- son refusing anticoagulation due to not wanting to increase suffering Acute exacerbation of diastolic congestive heart failure, ejection fraction 50- 55% Acute kidney injury on chronic kidney disease stage IV, improving Dysphagia Severe protein calorie malnutrition Pancytopenia-likely related to breast cancer. Stage IV breast cancer on Ibrance Iron deficiency anemia, IV iron was given 4 doses, completed on 09/12/22. Pseudomonas UTI, Completed 7 day course of antibiotics with Zosyn on 09/15/22 Hypokalemia Hypomagnesemia Prior CVA with residual aphasia and left sided defecits Permanent atrial fibrillation not on anticoagulation secondary to severe GI b leeding -Family has chosen to take patient home under hospice services for comfort care at this time. -Consult place to hospice to set up home hospice care at this time. DVT prophylaxis: SCDs Discussed with: Patient, patient's son, and RN Anticipated discharge: Likely later today Anticipated discharge place: Return home on hospice A total of 35 minutes was spent on the care of this complex patient more than 50% of the time was spent in counseling and care coordination. I reviewed the documentation as provided by the JAYSON above, who is the original author of this note. I agree with the documented assessment and plan, with the following changes: none Objective - Vital Signs Vital signs: Vital Signs Temp 99 F 09/20/22 03:59 Pulse 90 09/20/22 03:59 Resp 20 09/20/22 03:59 BP 115/75 09/20/22 03:59 Pulse Ox 91 L 09/20/22 03:59 FiO2 Intake & Output 09/19/22 09/20/22 09/20/22 19:59 06:59 18:59 Intake Total Output Total Balance Weight Intake: Oral Output: Urine Other: Voiding Method - Labs CBC & Chem 7: 09/20/22 07:56 09/20/22 07:56
[2022-09-20 12:33] VITALS: BP 109/68; PULSE 80
[2022-09-20] MEDS ORDERED: LORazepam 2 MG/ML INJ IV PRN (16:12)
[2022-09-20] MEDS ORDERED: MORPHINE SULFATE 4 MG/ML SYRINGE IVP PRN (16:12)
[2022-09-20] MEDS ORDERED: DEXTROSE 5%-0.45% NACL 1,000 ML IV SCH (16:15)
--- NOTE | 2022-09-21 08:42 | CDI ---
Documentation Clarification Form Date: 09/17/2022 11:32:00 AM From: Alia GonsalesMorrisJOHN ho, CCDS Admit Date: 09/08/2022 03:17:00 AM Patient Name: aKjal Kirby Visit Number: [id number] Discharge Date: 09/20/2022 04:21:00 PM ATTENTION: The Clinical Documentation Specialists (CDI) and [facility] Coding Staff appreciate your assistance in clarifying documentation. Please respond to the clarification below the line at the bottom and electronically sign. The CDI & [facility] Coding staff will review the response and follow-up if needed. Please note: Queries are made part of the Legal Health Record. If you have any questions, please contact the author of this message via ITS. Dr. Arlene Martin: Please respond to the query on this query form or in your documentation. (The query is required to be submitted to and answered by the physician of record) Conflicting documentation has been found in the medical record. As attending physician, please provide clarification. CKD Stage III is documented in the Attending Physician Notes beginning on 09/08 through 09/16. CKD Stage IV is documented in the Nephrology Consult on 09/08 and in subsequent Nephrology Progress Notes through 09/16. History/Risk Factors per the 09/08 H/P: Stage IV Metastatic Breast CA, CVA with residual left side weakness, Dementia and Hypertension. Clinical Indicators: Presented to the ED on 09/08 via EMS with SOB & possible Pneumonia. Low pulse ox and cough with altered mental status. Admit with Pulmonary Edema, IRWIN, CKD, Hypoxia, Anemia, Pancytopenia, Hypokalemia and NSTEMI (later ruled in as Type II MS). LAB: 09/08 BUN 79, Creatinine 3.12. 09/17 BUN 44, Creatinine 1.93 GFR: 09/08: 13. 10: 14. 09/10 15. 09/11: 18. 09/12: 17. 09/13: 17. /: 19. 09/15: 17. 09/17: 23. Historical GFR: 08/21/2022: 23.6. 03/25/2022: 18.6. 11/28/2021: 22.2. 10/30/2021: 19.8. 05/08/2021 19.8. 11/28/2020: 21.1. Treatment 09/08: Bladder Scan, Telemetry, Daily weights, I&Os, Field catheter, O2 15% nrb, IV Azithromycin 500 mg 250 mls @ 250 mls/hr x1, IV lasix 40 mg x1, IV Kcl 20 meq 100 mls @ 50 mls/hr x2, IV Lasix 40 mg q12H. Please clarify which diagnosis is most appropriate: [ ] CKD Stage III [ ] CKD Stage IV [ ] Other (please specify): [ ] Unable to determine (Template Last Revised: January 2021) CKD Stage IV MTDD
--- NOTE | 2022-09-21 12:07 | P.DS ---
Providers Date of admission: 09/08/22 03:17 Expected date of discharge: 09/20/22 Attending physician: Yannick Marcelo MD Consults: 09/08/22 03:08 Consult Physician Urgent Consulting Provider: Gurmeet Bojorquez Consult Reason/Comments: hypoxic resp failure Do you want consulting provider notified?: Yes Consult Physician Urgent Consulting Provider: Bradley Lopez Consult Reason/Comments: yolie/ckd Do you want consulting provider notified?: Yes 09/08/22 03:18 Consult Physician Urgent Consulting Provider: [facility] Consult Reason/Comments: new onset chf Do you want consulting provider notified?: Yes 09/08/22 05:05 Consult Physician Urgent Consulting Provider: Juan Heller Consult Reason/Comments: breast ca Do you want consulting provider notified?: Yes 09/08/22 15:36 Consult to Palliative Care Routine Consulting Provider: Keren Batista Consult Reason/Comments: Multiple comorbidities, metastatic cancer, acute resp failure Do you want consulting provider notified?: Yes Primary care physician: Stated None Hospital Course: Discharge Diagnosis: Acute hypoxic respiratory failure, likely multifactorial Type II non-STEMI related to heart failure Elevated d-dimer Acute metabolic encephalopathy Intermediate probability of pulmonary embolism- son refusing anticoagulation due to not wanting to increase suffering Acute exacerbation of diastolic congestive heart failure, ejection fraction 50- 55% Acute kidney injury on chronic kidney disease stage IV, improving Dysphagia Severe protein calorie malnutrition Pancytopenia-likely related to breast cancer. Stage IV breast cancer on Ibrance Iron deficiency anemia, IV iron was given 4 doses, completed on 09/12/22. 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 -Consult place to hospice to set up home hospice care at this time. 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 Upon arrival to the emergency department patient minimally responsive and nonverbal. She required 15 L nonrebreather mask maintaining saturations in the 90s. CBC revealing pancytopenia with WBC count of 3.6, hemoglobin of 6.5, and platelet count of 134. D-dimer was elevated at 18.20. CMP revealing hyperkalemia with potassium of 3.2 and an acute kidney injury with BUN of 79, creatinine 3.12, and GFR of 13 with baseline creatinine of 1.9. Troponin elevated at 0.723. ProBNP 45,200. Covid PCR, influenza A, influenza B were negative. Urinalysis positive for infection. Chest x-ray revealing moderately severe pulmonary edema with cardiomegaly and pleural fluid possibly resulting from combined congestive heart failure and RDS. Patient admitted under our services with consultations to pulmonology, cardiology, nephrology, oncology, and palliative care. Troponins were trended and remained flat. Cardiology felt that she had fluid and heart failure. Echocardiogram was obtained which showed preserved ejection fraction with significant LVH and pulmonary HTN. Diuresis was continued. Patient became hypernatremic with a decreased oral intake. She was started on D5W. She developed significant hypokalemia which required aggressive potassium replacement. She was seen by speech therapy and was unable to tolerate any safe oral intake. She had 2 days where her respiratory status improved, however she again deteriorated. Due to her significantly elevated d-dimer on admission she underwent bilateral lower extremity venous Dopplers are negative, VQ scan showed intermediate probability however this was felt likely to be secondary to her CHF exacerbation and she had no RV strain on echo. Her oxygen requirements had improved but then declined again on 09/11/22 requiring 8-9 L of oxygen to maintain SpO2 of 90%. She has not shown any significant improvement. She is not having any oral intake of food or fluids and due to need of high flow O2 is not a candidate for NG tube, per mathematics department chair the patient does not meet criteria for TPN, and patient's son is declining PEG tube placement. Pt had a poor overall prognosis and this had been discussed with family. Patient was not showing improvement, despite rendered care. Palliative care was following. Patient's family made the determination to take patient home on comfort measures with hospice care. Hospice evaluated and pt transferred to [facility] inpatient while awaiting home hospice care to be set up. Imaging: Renal/bladder ultrasound-cholelithiasis with gallbladder polyp, repeat in 6 months, no hydronephrosis CT head: Hypoattenuation in the right occipital lobe which may represent chronic white matter changes. Remote injuries to the right frontal temporal junction and bilateral basal ganglia, nonspecific white matter changes. Bilateral venous Doppler-no evidence of DVT in both legs Pulmonary perfusion scan-intermediate probability of PE Repeat CXR- Unchanged bilateral infiltrate Echocardiogram with diastolic dysfunction and no signs of right heart strain. Physical exam: Vital signs reviewed and stable. General: chronically ill appearing. Cachectic appearance. Derm: Skin warm and dry, normal coloration for ethnicity. Head: Atraumatic, normocephalic and symmetric. Eyes: EOMs intact, no lid lag, and anicteric sclera Mouth: no lip lesions, mucus membranes moist Cardiovascular: regular rate and rhythm with normal S1S2, systolic murmur, positive posterior tibial pulses bilaterally, and cap refill < 2 seconds. Lungs: Respirations even, regular, and unlabored with a slight increased respiratory effor. Patient remains on 7 L O2 via high flow nasal cannula, lungs with diffuse coarse rhonchi throughout. Abdominal: soft, nontender to palpation, no guarding, no appreciable organomegaly Ext: No gross muscle atrophy, no lower extremity edema, no contractures. Bilateral upper extremities edematous, worse on right. Neuro: Minimally responsive, remains nonverbal at this time. Psych: Minimally responsive, nonverbal at this time. Pt was transferred to inpatient hospice under [facility] hospice services on 09/20/22. Patient Condition at Discharge: Poor Plan - Discharge Summary Discharge Rx Participant: No New Discharge Prescriptions: No Action Albuterol Sulfate [Proventil Hfa] 2 puff INHALATION RT-Q4H PRN PRN Reason: Shortness Of Breath amLODIPine [Norvasc] 5 mg PO DAILY diphenhydrAMINE HCL [Benadryl] 25 mg PO DAILY PRN PRN Reason: Allergy Symptoms Docusate [Colace] 100 mg PO DAILY PRN PRN Reason: Constipation Famotidine [Pepcid] 20 mg PO BID PRN PRN Reason: Heartburn Latanoprost [Latanoprost 0.005%] 1 drop BOTH EYES HS Loratadine [Claritin] 10 mg PO DAILY Sennosides [Senokot] 8.6 mg PO DAILY PRN PRN Reason: Constipation Acetaminophen Tab [Tylenol] 650 mg PO Q4H PRN PRN Reason: Fever And/ Or Pain Anastrozole [Arimidex] 1 mg PO DAILY Folic Acid 1 mg PO DAILY Furosemide [Lasix] 40 mg PO BID L.acidoph,Paracasei, B.lactis [Probiotic] 1 cap PO DAILY Metoprolol Tartrate [Lopressor] 25 mg PO BID Palbociclib [Ibrance] 125 mg PO DIRECTED Potassium Chloride 20 meq PO DAILY Discharge Medication List Acetaminophen Tab [Tylenol] 650 mg PO Q4H PRN 09/08/22 [History] Albuterol Sulfate [Proventil Hfa] 2 puff INHALATION RT-Q4H PRN 09/08/22 [History] Anastrozole [Arimidex] 1 mg PO DAILY 09/08/22 [History] Docusate [Colace] 100 mg PO DAILY PRN 09/08/22 [History] Famotidine [Pepcid] 20 mg PO BID PRN 09/08/22 [History] Folic Acid 1 mg PO DAILY 09/08/22 [History] Furosemide [Lasix] 40 mg PO BID 09/08/22 [History] L.acidoph,Paracasei, B.lactis [Probiotic] 1 cap PO DAILY 09/08/22 [History] Latanoprost [Latanoprost 0.005%] 1 drop BOTH EYES HS 09/08/22 [History] Loratadine [Claritin] 10 mg PO DAILY 09/08/22 [History] Metoprolol Tartrate [Lopressor] 25 mg PO BID 09/08/22 [History] Palbociclib [Ibrance] 125 mg PO DIRECTED 09/08/22 [History] Potassium Chloride 20 meq PO DAILY 09/08/22 [History] Sennosides [Senokot] 8.6 mg PO DAILY PRN 09/08/22 [History] amLODIPine [Norvasc] 5 mg PO DAILY 09/08/22 [History] diphenhydrAMINE HCL [Benadryl] 25 mg PO DAILY PRN 09/08/22 [History] Follow up Appointment(s)/Referral(s): Juan Heller MD [STAFF PHYSICIAN] - 3 Weeks [facility], [NON-STAFF] - Care,[facility] [NON-STAFF] - Assocation,[facility] [NON-STAFF] - 1-2 Days Activity/Diet/Wound Care/Special Instructions: HOLD IBRANCE until pt recovered and any antibiotics are completed Discharge Disposition: DC/TRNS IP HOSP W/PLND IP READ
--- NOTE | 2022-09-21 16:11 | P.PN ---
Subjective Progress Note Date: 09/10/22 Principal diagnosis: resp failure, on treatment for breast cancer In f/u today pt is much more alert, she is vocal, hard to understand but she follows commands and is responding to questions. Objective - Vital Signs Vital signs: Vital Signs Temp 97.6 F 09/10/22 08:23 Pulse 85 09/10/22 08:23 Resp 17 09/10/22 08:23 BP 111/60 09/10/22 08:23 Pulse Ox 93 L 09/10/22 08:23 FiO2 Intake & Output 09/09/22 09/10/22 09/10/22 18:59 06:59 18:59 Output Total 1250 Balance -1250 Weight 61.235 kg Output: Urine 1250 Other: Voiding Method Diaper Diaper # Bowel Movements 1 - Constitutional General appearance: Present: average body habitus, cooperative, no acute distress - EENT EENT Comment(s): severe dry mouth, build up of dried saliva on teeth Eyes: Present: anicteric sclerae, EOMI - Respiratory Respiratory: bilateral: CTA - Cardiovascular Rhythm: regular Heart sounds: normal: S1, S2 - Gastrointestinal General gastrointestinal: Present: normal bowel sounds, soft - Musculoskeletal Musculoskeletal: Present: generalized weakness - Labs CBC & Chem 7: 09/20/22 07:56 09/20/22 07:56 Labs: Abnormal Lab Results - Last 24 Hours (Table) 09/10/22 09/10/22 Range/Units 10:12 10:12 WBC 3.5 L (3.8-10.6) k/uL RBC 2.51 L (3.80-5.40) m/uL Hgb 8.1 L (11.4-16.0) gm/dL Hct 26.1 L (34.0-46.0) % MCV 104.1 H (80.0-100.0) fL RDW 19.1 H (11.5-15.5) % Macrocytosis Marked A Potassium 2.6 L* (3.5-5.1) mmol/L Chloride 110 H (98-107) mmol/L Carbon Dioxide 20 L (22-30) mmol/L BUN 66 H (7-17) mg/dL Creatinine 2.69 H (0.52-1.04) mg/dL Glucose 131 H (74-99) mg/dL Calcium 8.0 L (8.4-10.2) mg/dL Microbiology - Last 24 Hours (Table) 09/08/22 02:09 Urine Culture - Preliminary Urine,Voided Pseudomonas aeruginosa 09/08/22 00:54 Blood Culture - Preliminary Blood No Growth after 48 hours Assessment and Plan (1) Breast cancer, stage 4 Status: Chronic Priority: Medium Code(s): C50.919 - MALIGNANT NEOPLASM OF UNSP SITE OF UNSPECIFIED FEMALE BREAST SNOMED Code(s): 580042345 Plan: Pt mental status seems to be improved. She cont on abx and is receiving hydration. Her breathing is stable, she is requiring O2 Pt breast cancer has been well controlled on oral therapy. Holding ibrance until any course of therapy and/or abx are completed. Ca15.3 and 27.29 are stable. Cont current medical mgmt per IM
== END 2022-09-20 16:21 | disposition home health service (06) | DRG 280 ==
LOC: EC 23:03 → 3SCARD 09-08 03:17
PROVIDERS: ADMIT Internal Medicine; ATTEND Internal Medicine
PROC: 30233N1 Transfusion of Nonautologous Red Blood Cells into Peripheral Vein, Percutaneous Approach (ICD-10-PCS; principal; 2022-09-08)
PROC: 05HY33Z Insertion of Infusion Device into Upper Vein, Percutaneous Approach (ICD-10-PCS; 2022-09-09 14:05)
DX: I13.0 Hypertensive heart and chronic kidney disease with heart failure and stage 1 through stage 4 chronic kidney disease, or unspecified chronic kidney disease (principal); E43 Unspecified severe protein-calorie malnutrition; I21.A1 Myocardial infarction type 2; I50.33 Acute on chronic diastolic (congestive) heart failure; N17.0 Acute kidney failure with tubular necrosis; J96.01 Acute respiratory failure with hypoxia; I26.99 Other pulmonary embolism without acute cor pulmonale; G93.41 Metabolic encephalopathy; D61.818 Other pancytopenia; R64 Cachexia; C77.3 Secondary and unspecified malignant neoplasm of axilla and upper limb lymph nodes; C79.89 Secondary malignant neoplasm of other specified sites; F03.93 Unspecified dementia, unspecified severity, with mood disturbance; E87.3 Alkalosis; E87.0 Hyperosmolality and hypernatremia; I69.354 Hemiplegia and hemiparesis following cerebral infarction affecting left non-dominant side; D62 Acute posthemorrhagic anemia; N18.4 Chronic kidney disease, stage 4 (severe); N39.0 Urinary tract infection, site not specified; I48.21 Permanent atrial fibrillation; L89.152 Pressure ulcer of sacral region, stage 2; I27.20 Pulmonary hypertension, unspecified; C50.012 Malignant neoplasm of nipple and areola, left female breast; E11.22 Type 2 diabetes mellitus with diabetic chronic kidney disease; Z20.822 Contact with and (suspected) exposure to COVID-19; Z66 Do not resuscitate; Z51.5 Encounter for palliative care; D63.1 Anemia in chronic kidney disease; E87.6 Hypokalemia; B96.5 Pseudomonas (aeruginosa) (mallei) (pseudomallei) as the cause of diseases classified elsewhere; M81.0 Age-related osteoporosis without current pathological fracture; I69.320 Aphasia following cerebral infarction; R47.1 Dysarthria and anarthria; R13.10 Dysphagia, unspecified; E83.42 Hypomagnesemia; N39.41 Urge incontinence; K59.00 Constipation, unspecified; E78.5 Hyperlipidemia, unspecified; K80.20 Calculus of gallbladder without cholecystitis without obstruction; I44.7 Left bundle-branch block, unspecified; Z68.21 Body mass index [BMI] 21.0-21.9, adult; Z79.811 Long term (current) use of aromatase inhibitors; Z79.899 Other long term (current) drug therapy; Z87.891 Personal history of nicotine dependence; Z17.0 Estrogen receptor positive status [ER+]; Z74.01 Bed confinement status; Z71.3 Dietary counseling and surveillance; Z88.5 Allergy status to narcotic agent; Z88.2 Allergy status to sulfonamides
CPT/HCPCS: 36410; 36415; 36600; 70450; 71045; 71046; 76770; 76937; 78580; 80048; 80053; 81001; 82728; 82805; 83540; 83550; 83735; 83880; 84100; 84132; 84145; 84484; 85025; 85027; 85379; 85610; 85730; 86850; 86900; 86901; 86920; 87040; 87077; 87086; 87186; 87502; 87635; 93005; 93306; 93970; 94760; 96365; 96366; 96375; 99291

== ENCOUNTER 2022-09-20 15:49 | Inpatient (IN) | payer MEDICAID ==
[2022-09-20] MEDS ORDERED: LORazepam 2 MG/ML INJ IV PRN (16:43)
[2022-09-20] MEDS ORDERED: MORPHINE SULFATE 4 MG/ML SYRINGE IVP PRN (16:43)
[2022-09-20] MEDS ORDERED: DEXTROSE 5% IN WATER 1,000 ML IV SCH (16:45)
[2022-09-21 10:52] VITALS: RESP 24
--- NOTE | 2022-09-21 12:24 | P.HPIM ---
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 Upon arrival to the emergency department patient minimally responsive and nonverbal. She required 15 L nonrebreather mask maintaining saturations in the 90s. CBC revealing pancytopenia with WBC count of 3.6, hemoglobin of 6.5, and platelet count of 134. D-dimer was elevated at 18.20. CMP revealing hyperkalemia with potassium of 3.2 and an acute kidney injury with BUN of 79, creatinine 3.12, and GFR of 13 with baseline creatinine of 1.9. Troponin elevated at 0.723. ProBNP 45,200. Covid PCR, influenza A, influenza B were negative. Urinalysis positive for infection. Chest x-ray revealing moderately severe pulmonary edema with cardiomegaly and pleural fluid possibly resulting from combined congestive heart failure and RDS. Patient admitted under our services with consultations to pulmonology, cardiology, nephrology, oncology, and palliative care. Troponins were trended and remained flat. Cardiology felt that she had fluid volume overload and heart failure. Echocardiogram was obtained which showed preserved ejection fraction with significant LVH and pulmonary HTN. Diuresis was continued. Patient became hypernatremic due to a decreased oral intake. She was started on D5W. She developed significant hypokalemia which required aggressive potassium replacement. She remained minimally responsive and was seen by speech therapy and it was determined that patient was unable to tolerate any safe oral intake. Due to her significantly elevated d-dimer on admission she underwent bilateral lower extremity venous Dopplers which were negative, and finally a VQ scan which showed intermediate probability however this was felt likely to be secondary to her CHF exacerbation and she had no RV strain on echo. Her oxygen requirements had improved but then declined again on 09/11/22 requiring 8-9 L of oxygen to maintain SpO2 of 90%. She has not shown any significant improvement. She continued to be minimally responsive and having no oral intake of food or fluids and due to need of high flow O2 she was not a candidate for NG tube, and per director sales and trade marketing the patient does not meet criteria for TPN, and patient's son is declining PEG tube placement. Pt had a poor overall prognosis and this had been discussed with family. Patient was not showing improvement, despite rendered care. Palliative care was following. On the evening of 09/20/22 patient's family made the determination to take patient home on comfort measures with hospice care. Hospice evaluated and pt was transferred to [facility] inpatient while awaiting home hospice care to be set up. Imaging: Renal/bladder ultrasound-cholelithiasis with gallbladder polyp, repeat in 6 months, no hydronephrosis CT head: Hypoattenuation in the right occipital lobe which may represent chronic white matter changes. Remote injuries to the right frontal temporal junction and bilateral basal ganglia, nonspecific white matter changes. Bilateral venous Doppler-no evidence of DVT in both legs Pulmonary perfusion scan-intermediate probability of PE Repeat CXR- Unchanged bilateral infiltrate Echocardiogram with diastolic dysfunction and no signs of right heart strain. Physical exam: Vital signs reviewed and stable. General: chronically ill appearing. Cachectic appearance. Derm: Skin warm and dry, normal coloration for ethnicity. Head: Atraumatic, normocephalic and symmetric. Eyes: EOMs intact, no lid lag, and anicteric sclera Mouth: no lip lesions, mucus membranes moist Cardiovascular: regular rate and rhythm with normal S1S2, systolic murmur, positive posterior tibial pulses bilaterally, and cap refill < 2 seconds. Lungs: Respirations even, regular, and unlabored with a slight increased respiratory effor. Patient remains on 7 L O2 via high flow nasal cannula, lungs with diffuse coarse rhonchi throughout. Abdominal: soft, nontender to palpation, no guarding, no appreciable organomegaly Ext: No gross muscle atrophy, no lower extremity edema, no contractures. Bilateral upper extremities edematous, worse on right. Neuro: Minimally responsive, remains nonverbal at this time. Psych: Minimally responsive, nonverbal at this time. Assessment and plan of care: Acute hypoxic respiratory failure, likely multifactorial Type II non-STEMI related to heart failure Elevated d-dimer Acute metabolic encephalopathy Intermediate probability of pulmonary embolism- son refusing anticoagulation due to not wanting to increase suffering Acute exacerbation of diastolic congestive heart failure, ejection fraction 50- 55% Acute kidney injury on chronic kidney disease stage IV, improving Dysphagia Severe protein calorie malnutrition Pancytopenia-likely related to breast cancer. Stage IV breast cancer on Ibrance Iron deficiency anemia, IV iron was given 4 doses, completed on 09/12/22. 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 -Patient has been admitted to inpatient [facility] hospice while awaiting arrangements to be set up for home hospice, patient appears comfortable. She remains minimally responsive and family remains at bedside. Past Medical History Past Medical History: Cancer, CVA/TIA Additional Past Medical History / Comment(s): breat ca dx 2018; L breast masectomy with lymph node removal, stroke back in 2012 with left side paralysis History of Any Multi-Drug Resistant Organisms: None Reported Additional Past Surgical History / Comment(s): catarat surgery Past Anesthesia/Blood Transfusion Reactions: No Reported Reaction Past Psychological History: No Psychological Hx Reported Smoking Status: Former smoker Past Drug Use History: None Reported - Past Family History Mother Family Medical History: Cancer Medications and Allergies Home Medications Medication Instructions Recorded Confirmed Type Acetaminophen Tab [Tylenol] 650 mg PO Q4H PRN 09/08/22 09/20/22 History Albuterol Sulfate [Proventil Hfa] 2 puff INHALATION RT-Q4H PRN 09/08/22 09/20/22 History Anastrozole [Arimidex] 1 mg PO DAILY 09/08/22 09/20/22 History Docusate [Colace] 100 mg PO DAILY PRN 09/08/22 09/20/22 History Famotidine [Pepcid] 20 mg PO BID PRN 09/08/22 09/20/22 History Folic Acid 1 mg PO DAILY 09/08/22 09/20/22 History Furosemide [Lasix] 40 mg PO BID 09/08/22 09/20/22 History L.acidoph,Paracasei, B.lactis 1 cap PO DAILY 09/08/22 09/20/22 History [Probiotic] Latanoprost [Latanoprost 0.005%] 1 drop BOTH EYES HS 09/08/22 09/20/22 History Loratadine [Claritin] 10 mg PO DAILY 09/08/22 09/20/22 History Metoprolol Tartrate [Lopressor] 25 mg PO BID 09/08/22 09/20/22 History Palbociclib [Ibrance] 125 mg PO DIRECTED 09/08/22 09/20/22 History Potassium Chloride 20 meq PO DAILY 09/08/22 09/20/22 History Sennosides [Senokot] 8.6 mg PO DAILY PRN 09/08/22 09/20/22 History amLODIPine [Norvasc] 5 mg PO DAILY 09/08/22 09/20/22 History diphenhydrAMINE HCL [Benadryl] 25 mg PO DAILY PRN 09/08/22 09/20/22 History Allergies Allergy/AdvReac Type Severity Reaction Status Date / Time codeine Allergy Swelling Verified 09/08/22 08:50 Sulfa (Sulfonamide Allergy Swelling Verified 09/08/22 08:50 Antibiotics) Physical Exam Vitals: Vital Signs Resp Pulse Ox 09/21/22 08:29 98 09/21/22 08:00 24 97 09/21/22 03:39 15 96 09/21/22 01:44 14 09/21/22 00:00 14 98 09/20/22 20:00 14 Intake and Output 09/20/22 09/21/22 09/21/22 22:59 06:59 14:59 Output Total 125 100 Balance -125 -100 Output: Urine 125 100 Uretheral (Field) 100 Other: Voiding Method Indwelling Catheter # Voids 1 Weight 61.235 kg
--- NOTE | 2022-09-21 12:57 | P.DS ---
Providers Date of admission: 09/20/22 16:27 Expected date of discharge: 09/21/22 Attending physician: Yannick Marcelo MD Primary care physician: Stated None Hospital Course: Discharge Diagnosis: Hospice care Acute hypoxic respiratory failure, likely multifactorial Type II non-STEMI related to heart failure Elevated d-dimer Acute metabolic encephalopathy Intermediate probability of pulmonary embolism- son refusing anticoagulation due to not wanting to increase suffering Acute exacerbation of diastolic congestive heart failure, ejection fraction 50- 55% Acute kidney injury on chronic kidney disease stage IV, improving Dysphagia Severe protein calorie malnutrition Pancytopenia-likely related to breast cancer. Stage IV breast cancer on Ibrance Iron deficiency anemia, IV iron was given 4 doses, completed on 09/12/22. 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 Upon arrival to the emergency department patient minimally responsive and nonverbal. She required 15 L nonrebreather mask maintaining saturations in the 90s. CBC revealing pancytopenia with WBC count of 3.6, hemoglobin of 6.5, and platelet count of 134. D-dimer was elevated at 18.20. CMP revealing hyperkalemia with potassium of 3.2 and an acute kidney injury with BUN of 79, creatinine 3.12, and GFR of 13 with baseline creatinine of 1.9. Troponin elevated at 0.723. ProBNP 45,200. Covid PCR, influenza A, influenza B were negative. Urinalysis positive for infection. Chest x-ray revealing moderately severe pulmonary edema with cardiomegaly and pleural fluid possibly resulting from combined congestive heart failure and RDS. Patient admitted under our services with consultations to pulmonology, cardiology, nephrology, oncology, and palliative care. Troponins were trended and remained flat. Cardiology felt that she had fluid volume overload and heart failure. Echocardiogram was obtained which showed preserved ejection fraction with significant LVH and pulmonary HTN. Diuresis was continued. Patient became hypernatremic due to a decreased oral intake. She was started on D5W. She developed significant hypokalemia which required aggressive potassium replacement. She remained minimally responsive and was seen by speech therapy and it was determined that patient was unable to tolerate any safe oral intake. Due to her significantly elevated d-dimer on admission she underwent bilateral lower extremity venous Dopplers which were negative, and finally a VQ scan which showed intermediate probability however this was felt likely to be secondary to her CHF exacerbation and she had no RV strain on echo. Her oxygen requirements had improved but then declined again on 09/11/22 requiring 8-9 L of oxygen to maintain SpO2 of 90%. She has not shown any significant improvement. She continued to be minimally responsive and having no oral intake of food or fluids and due to need of high flow O2 she was not a candidate for NG tube, and per [employer] the patient does not meet criteria for TPN, and patient's son is declining PEG tube placement. Pt had a poor overall prognosis and this had been discussed with family. Patient was not showing improvement, despite rendered care. Palliative care was following. On the evening of 09/20/22 patient's family made the determination to take patient home on comfort measures with hospice care. Hospice evaluated and pt was t ransferred to [facility] hospice inpatient while awaiting home hospice care to be set up. On 09/21/22, all arrangements have been made and patient being discharged home in care of [facility] hospice services at this time. Imaging: Renal/bladder ultrasound-cholelithiasis with gallbladder polyp, repeat in 6 months, no hydronephrosis CT head: Hypoattenuation in the right occipital lobe which may represent chronic white matter changes. Remote injuries to the right frontal temporal junction and bilateral basal ganglia, nonspecific white matter changes. Bilateral venous Doppler-no evidence of DVT in both legs Pulmonary perfusion scan-intermediate probability of PE Repeat CXR- Unchanged bilateral infiltrate Echocardiogram with diastolic dysfunction and no signs of right heart strain. Physical exam: Vital signs reviewed and stable. General: chronically ill appearing. Cachectic appearance. Derm: Skin warm and dry, normal coloration for ethnicity. Head: Atraumatic, normocephalic and symmetric. Eyes: EOMs intact, no lid lag, and anicteric sclera Mouth: no lip lesions, mucus membranes moist Cardiovascular: regular rate and rhythm with normal S1S2, systolic murmur, positive posterior tibial pulses bilaterally, and cap refill < 2 seconds. Lungs: Respirations even, regular, and unlabored with a slight increased respiratory effor. Patient remains on 7 L O2 via high flow nasal cannula, lungs with diffuse coarse rhonchi throughout. Abdominal: soft, nontender to palpation, no guarding, no appreciable organomegaly Ext: No gross muscle atrophy, no lower extremity edema, no contractures. Bilateral upper extremities edematous, worse on right. Neuro: Minimally responsive, remains nonverbal at this time. Psych: Minimally responsive, nonverbal at this time. Pt was discharged on 09/21/22 at 12:43 PM into the care of [facility]. Plan - Discharge Summary Discharge Rx Participant: Yes New Discharge Prescriptions: No Action Albuterol Sulfate [Proventil Hfa] 2 puff INHALATION RT-Q4H PRN PRN Reason: Shortness Of Breath amLODIPine [Norvasc] 5 mg PO DAILY diphenhydrAMINE HCL [Benadryl] 25 mg PO DAILY PRN PRN Reason: Allergy Symptoms Docusate [Colace] 100 mg PO DAILY PRN PRN Reason: Constipation Famotidine [Pepcid] 20 mg PO BID PRN PRN Reason: Heartburn Latanoprost [Latanoprost 0.005%] 1 drop BOTH EYES HS Loratadine [Claritin] 10 mg PO DAILY Sennosides [Senokot] 8.6 mg PO DAILY PRN PRN Reason: Constipation Acetaminophen Tab [Tylenol] 650 mg PO Q4H PRN PRN Reason: Fever And/ Or Pain Anastrozole [Arimidex] 1 mg PO DAILY Folic Acid 1 mg PO DAILY Furosemide [Lasix] 40 mg PO BID L.acidoph,Paracasei, B.lactis [Probiotic] 1 cap PO DAILY Metoprolol Tartrate [Lopressor] 25 mg PO BID Palbociclib [Ibrance] 125 mg PO DIRECTED Potassium Chloride 20 meq PO DAILY Discharge Medication List Acetaminophen Tab [Tylenol] 650 mg PO Q4H PRN 09/08/22 [History] Albuterol Sulfate [Proventil Hfa] 2 puff INHALATION RT-Q4H PRN 09/08/22 [History] Anastrozole [Arimidex] 1 mg PO DAILY 09/08/22 [History] Docusate [Colace] 100 mg PO DAILY PRN 09/08/22 [History] Famotidine [Pepcid] 20 mg PO BID PRN 09/08/22 [History] Folic Acid 1 mg PO DAILY 09/08/22 [History] Furosemide [Lasix] 40 mg PO BID 09/08/22 [History] L.acidoph,Paracasei, B.lactis [Probiotic] 1 cap PO DAILY 09/08/22 [History] Latanoprost [Latanoprost 0.005%] 1 drop BOTH EYES HS 09/08/22 [History] Loratadine [Claritin] 10 mg PO DAILY 09/08/22 [History] Metoprolol Tartrate [Lopressor] 25 mg PO BID 09/08/22 [History] Palbociclib [Ibrance] 125 mg PO DIRECTED 09/08/22 [History] Potassium Chloride 20 meq PO DAILY 09/08/22 [History] Sennosides [Senokot] 8.6 mg PO DAILY PRN 09/08/22 [History] amLODIPine [Norvasc] 5 mg PO DAILY 09/08/22 [History] diphenhydrAMINE HCL [Benadryl] 25 mg PO DAILY PRN 09/08/22 [History] Follow up Appointment(s)/Referral(s): [facility]-STAFF] - Discharge Disposition: HOME WITH HOSPICE
== END 2022-09-21 17:35 | disposition hospice, home (50) | DRG 280 ==
LOC: 3SCARD 16:27
PROVIDERS: ADMIT Internal Medicine; ATTEND Internal Medicine
DX: I13.0 Hypertensive heart and chronic kidney disease with heart failure and stage 1 through stage 4 chronic kidney disease, or unspecified chronic kidney disease (principal); E43 Unspecified severe protein-calorie malnutrition; I21.A1 Myocardial infarction type 2; G93.41 Metabolic encephalopathy; I50.33 Acute on chronic diastolic (congestive) heart failure; J96.01 Acute respiratory failure with hypoxia; D61.818 Other pancytopenia; E87.0 Hyperosmolality and hypernatremia; I48.21 Permanent atrial fibrillation; N17.9 Acute kidney failure, unspecified; N18.4 Chronic kidney disease, stage 4 (severe); N39.0 Urinary tract infection, site not specified; Z68.21 Body mass index [BMI] 21.0-21.9, adult; I27.20 Pulmonary hypertension, unspecified; I69.320 Aphasia following cerebral infarction; K80.20 Calculus of gallbladder without cholecystitis without obstruction; R13.10 Dysphagia, unspecified; C50.919 Malignant neoplasm of unspecified site of unspecified female breast; Z51.5 Encounter for palliative care; E83.42 Hypomagnesemia; E87.5 Hyperkalemia; E87.6 Hypokalemia; B96.5 Pseudomonas (aeruginosa) (mallei) (pseudomallei) as the cause of diseases classified elsewhere; F03.90 Unspecified dementia, unspecified severity, without behavioral disturbance, psychotic disturbance, mood disturbance, and anxiety; Z79.811 Long term (current) use of aromatase inhibitors; Z79.899 Other long term (current) drug therapy; Z87.891 Personal history of nicotine dependence; Z88.5 Allergy status to narcotic agent; Z88.2 Allergy status to sulfonamides; Z98.49 Cataract extraction status, unspecified eye
CPT/HCPCS: 94760